=== PATIENT | male | born 1990 | race Caucasian/White ===

== ENCOUNTER 2017-01-23 01:31 | Emergency (ER) | payer MEDICAID ==
[~2017-01-23] VITALS: Ht 185.4 cm; Wt 65.8 kg
[~2017-01-23 01:31] MED LIST: AMOXICILLIN 50500 MG PO; CHLOR-PHEN12 MG PO; CIPRO 0.3% OT; DEX OT; INSULIN GL100 UNITS/ SC; LANTUS INS100 UNITS/ SC; LEVAQUIN750 MG PO; LORTAB 500 MG-71 TAB PO; NOVOLOG FLEX100 U/ML SC; NOVOLOG100 U/ML SC
--- NOTE | 2017-01-23 01:42 | Emergency Room Report ---
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 STATES HE ONLY HAD 1/2 BEER AT [employer]. FSBS 484 PER EMS. STATES STOMACH IS CRAMPING REALLY BAD. Onset of symptoms date/time:01/23/17 or onset unknown for: Treatment Prior to Arrival: IV STARTED AND BLOOD DRAWN. FSBS OBTAINED. 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 N Clinical Suspician of Infection? N Mental Status: 1 - Regular (Normal Baseline) Sepsis Risk:Possible Sepsis Risk Have you (or family members/close friends) recently traveled outside the [place]? N If Yes, where/when: Have you had exposure to infectious disease within the past month? N TB? Other? Specify: Source patient, RN notes reviewed, EMS, old records Exam Limitations no limitations Comment iddm with crampy abd pain with no vomiting and concerned about possible tampering with his drink at [employer] party - Cardiac Chest Pain Chest pain indicative of cardiac No Timing/Duration this evening Severity moderate ALLERGIES Coded Allergies: No Known Allergies (01/23/17) Home Medications Reported Medications INSULIN GLARGINE (Lantus 3ML Solostar Pen) 40 U SC QHS Insulin Aspart, Recombinant (Novolog Flexpen) 0 SC QID HYDROCODONE 7.5MG/[id number] (Hydrocodon-Acetaminoph 7.5-500) 1-2 TAB PO Q4-6H PRN History Medical History General CAD? No Angina: No AR: No Hypertension? No Hyperlipidemia? No CHF? No DVT? No PE? No COPD? No Asthma? No Anemia? No GERD? No Gastric ulcers? No GI Bleed? No Hernia? No Thyroid Problems? No Hypothyroidism? No CVA? No Seizures? No Diabetes? Yes Insulin Dependent: Yes Insulin Pump: No Home FSBS? No Renal Insuffiency? No End Stage Renal Disease? No UTI? No Stones? No BPH? No GB Disease: No Nephritic Syndrome? No Asplenia? No Hepatitis? No Sickle Cell Disease? No Arthritis? No Migraines? No Cataracts? No Glaucoma? No MRSA? No HIV? No TB? No Anxiety? No Depression? No Cancer? No More? No Immunization Hx Ped.Immunizations UTD No DT/Tetanus 1-4 YRS Flu THIS YR Pneumonia NEVER Surgical Hx Previous Surgery?Y RIGHT EAR Family History Family Hx Diabetes No CAD No Hypertension No Hyperlipidemia No Cancer No TB No Social History Smoking Hx Smoker: Never Smoker Tobacco: No Packs/day < 1 Pack Are you/the child exposed to second-hand smoke: No Alcohol Alcohol: Yes Drugs none Review of Systems All Other Systems Reviewed and Negative Constitutional denies fever Eyes denies drainage ENT denies: ear pain, epistaxis, throat pain. Respiratory denies cough, denies shortness of breath, denies wheezing Cardiovascular denies chest pain, denies syncope Gastrointestinal see HPI, abdominal pain, denies diarrhea, nausea, denies vomiting Genitourinary denies: dysuria, frequency, hesitancy, hematuria. Musculoskeletal denies back pain, denies joint pain, denies joint swelling, denies neck pain Skin denies rash Psychiatric/Neurological denies headache, denies seizure Physical Exam Vital Signs Vital Signs Date Time Temp Pulse Resp B/P Pulse O2 O2 Flow FiO2 Ox Delivery Rate 01/23 0323 98.4 93 18 109/79 97 01/23 0240 98.4 92 16 108/69 98 01/23 0209 98.4 109 16 100/62 98 01/23 0132 98.4 109 22 124/74 98 - WBC >12,000 or <4,000 or 10% bands? 2 or more SIRS Criteria Met? B/P:109/79 MAP:90 Creatinine >2.0? UA output<0.5ml/kg/hr for 2 hrs? Platelet count >100,000? Lactate >2.0mmol/1? INR >1.2 or PTT > than 60 sec? Evidence of Organ Dysfunction? Provider documented clinical suspician of infection? N Sepsis Criteria Count: 2 Sepsis Risk: Possible Sepsis Risk General Appearance no apparent distress Eye Exam - bilateral eye PERRL, bilateral eye EOMI Ear, Nose, Throat normal ENT inspection Neck supple Respiratory Status No: respiratory distress. Lung Sounds bilateral: lungs clear. Cardiovascular regular rate/rhythm, no murmur, no rub Peripheral Pulses Pulses normal Yes Gastrointestinal soft, no organomegaly, no pulsatile mass, no guarding, no rebound Extremities normal inspection Strength 4 Upper Ext (L), 4 Upper Ext (R), 4 Lower Ext (L), 4 Lower Ext (R) Neurologic alert, cartridge loader II-XII nml as tested, no motor/sensory deficits Reflexes Reflexes normal No Mental status normal mood/affect Skin intact Medical Decision Making LABS/Meds/Orders Pt receiving controlled substance in ED? No Results/Orders Laboratory Tests 01/23/17 031: POC Glucose 192 H 01/23/17 0150: Opiates Screen NEGATIVE, Urine Methadone Screen NEGATIVE, Barbiturates NEGATIVE, Phencyclidine Screen NEGATIVE, Amphetamines Screen POSITIVE H, Benzodiazepines Screen NEGATIVE, Cocaine Screen NEGATIVE, Marijuana (THC) Screen NEGATIVE, Urine Color YELLOW, Urine Appearance CLEAR, Urine pH 5.5, Ur Specific [place] 1.010, Urine Protein NEGATIVE, Urine Ketones 1+ H, Urine Blood NEGATIVE, Urine Nitrate NEGATIVE, Urine Bilirubin NEGATIVE, Urine Urobilinogen 0.2, Ur Leukocyte Esterase NEGATIVE, Amorphous Sediment TRACE, Urine Glucose 3+ H 01/23/17 0134: Alcohols 0 01/23/174: Sodium 133 L, Potassium 4.4, Chloride 96 L, Carbon Dioxide 22, BUN 19 H, Creatinine 1.7 H, Estimated Creat Clear 62, Estimated GFR (MDRD) 49, Glucose 491 H, Calcium 8.8, Total Bilirubin 0.5, AST 23, ALT 38, Alkaline Phosphatase 137 H, Total Protein 7.3, Albumin 3.3 L, Globulin 4.0 H, Albumin/Globulin Ratio 0.8 L, Amylase 63, Lipase 111, WBC 6.7, RBC 4.66, Hgb 14.1, Hct 43.1, MCV 92.5, RDW 13.0, Plt Count 300, MPV 6.1 L, Gran % 47.0, Gran # 3.2, Lymphocytes % 44.1, Monocytes % 4.9, Eosinophils % 3.3, Basophils % 0.8, Lymphocytes # 3.0, Monocytes # 0.3, Eosinophils # 0.2, Basophils # 0.1, PUBS MCHC 32.7, MCH 30.3, Acetone Level NONE DETECTED Current Medication Orders Sig/Frannie Start time Last Medication Dose Route Stop Time Status Admin Sodium Chloride 1,000 ML .STK-MED ONE 01/24 320 DC IV Insulin Human Regular 5 UNITS ONCE ONE 01/23 315 CAN IVP 01/24 316 Sodium Chloride 1,000 ML .Q1H1M 01/23 315 AC 01/23 IV 01/23 0415 0322 Sodium Chloride 10 ML PRN PRN 01/23 0315 AC IV 01/24 0314 Sodium Chloride 1,000 ML .STK-MED ONE 01/23 0236 DC IV Sodium Chloride 10 ML PRN PRN 01/23 0145 AC IV 01/24 0137 Sodium Chloride 1,000 ML .Q1H1M 01/23 0145 DC 01/23 IV 01/23 0245 0149 Sodium Chloride 10 ML PRN PRN 01/23 0145 AC IV 01/24 0138 Sodium Chloride 1,000 ML .Q1H1M 01/23 0145 DC 01/23 IV 01/23 0245 0239 Sodium Chloride 10 ML PRN PRN 01/23 0145 AC IV 01/24 0142 Sodium Chloride 1,000 ML .STK-MED ONE 01/23 0139 DC IV Orders Procedure Date/time Status DIET-NOTHING BY MOUTH 01/23 B Active FINGERSTICK BLOOD SUGAR 01/[address] ABD & PELVIS W/O CONTRAST 01/23 014 Active ALCOHOL 01/[address] ABD/PELVIS REQ 01/23 138 Active IV SALINE LOCK 01/23 138 Active URINALYSIS/COMPLETE 01/23 138 Complete LIPASE 01/23 138 Complete DRUG ABUSE SCREEN (TRIAGE) 01/23 138 Complete CBC WITH AUTO DIFF 01/23 138 Complete CHEM 12 PROFILE 01/23 138 Complete AMYLASE 01/23 138 Complete Acetone, Serum 01/23 138 Complete XRAY/CT/US XRAY/CT/US CT abdomen, pelvis CT interpretation by discussed w/radiologist Time results known: 334 CT Results abnormal (see report) Departure Departure Time of Disposition 334 Disposition DC Home or Self Care(routine) Clinical Impression Primary Impression: Diabetes mellitus Qualifiers: Diabetes mellitus type: type 1 Diabetes mellitus complication status: with unspecified complications Qualified Code: E10.8 - Type 1 diabetes mellitus with unspecified complications Condition STABLE Patient Instructions DI for Diabetes Type 1 -- Adult Additional Instructions fluids and resume prev diabetes care Discharge Counseling Counseled pt/family regarding diagnosis, test results, follow up needs ED Critical Care Critical Care No at [id number]
--- NOTE | 2017-01-23 01:42 | Emergency Room Report ---
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 STATES HE ONLY HAD 1/2 BEER AT [employer]. FSBS 484 PER EMS. STATES STOMACH IS CRAMPING REALLY BAD. Onset of symptoms date/time:01/23/17 or onset unknown for: Treatment Prior to Arrival: IV STARTED AND BLOOD DRAWN. FSBS OBTAINED. 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 N Clinical Suspician of Infection? N Mental Status: 1 - Regular (Normal Baseline) Sepsis Risk:Possible Sepsis Risk Have you (or family members/close friends) recently traveled outside the [place]? N If Yes, where/when: Have you had exposure to infectious disease within the past month? N TB? Other? Specify: Source patient, RN notes reviewed, EMS, old records Exam Limitations no limitations Comment iddm with crampy abd pain with no vomiting and concerned about possible tampering with his drink at [employer] - Cardiac Chest Pain Chest pain indicative of cardiac No Timing/Duration this evening Severity moderate ALLERGIES Coded Allergies: No Known Allergies (01/23/17) Home Medications Reported Medications INSULIN GLARGINE (Lantus 3ML Solostar Pen) 40 U SC QHS Insulin Aspart, Recombinant (Novolog Flexpen) 0 SC QID HYDROCODONE 7.5MG/[id number] (Hydrocodon-Acetaminoph 7.5-500) 1-2 TAB PO Q4-6H PRN History Medical History General CAD? No Angina: No SC: No Hypertension? No Hyperlipidemia? No CHF? No DVT? No PE? No COPD? No Asthma? No Anemia? No GERD? No Gastric ulcers? No GI Bleed? No Hernia? No Thyroid Problems? No Hypothyroidism? No CVA? No Seizures? No Diabetes? Yes Insulin Dependent: Yes Insulin Pump: No Home FSBS? No Renal Insuffiency? No End Stage Renal Disease? No UTI? No Stones? No BPH? No GB Disease: No Nephritic Syndrome? No Asplenia? No Hepatitis? No Sickle Cell Disease? No Arthritis? No Migraines? No Cataracts? No Glaucoma? No MRSA? No HIV? No TB? No Anxiety? No Depression? No Cancer? No More? No Immunization Hx Ped.Immunizations UTD No DT/Tetanus 1-4 YRS Flu THIS YR Pneumonia NEVER Surgical Hx Previous Surgery?Y RIGHT EAR Family History Family Hx Diabetes No CAD No Hypertension No Hyperlipidemia No Cancer No TB No Social History Smoking Hx Smoker: Never Smoker Tobacco: No Packs/day < 1 Pack Are you/the child exposed to second-hand smoke: No Alcohol Alcohol: Yes Drugs none Review of Systems All Other Systems Reviewed and Negative Constitutional denies fever Eyes denies drainage ENT denies: ear pain, epistaxis, throat pain. Respiratory denies cough, denies shortness of breath, denies wheezing Cardiovascular denies chest pain, denies syncope Gastrointestinal see HPI, abdominal pain, denies diarrhea, nausea, denies vomiting Genitourinary denies: dysuria, frequency, hesitancy, hematuria. Musculoskeletal denies back pain, denies joint pain, denies joint swelling, denies neck pain Skin denies rash Psychiatric/Neurological denies headache, denies seizure Physical Exam Vital Signs Vital Signs Date Time Temp Pulse Resp B/P Pulse O2 O2 Flow FiO2 Ox Delivery Rate 01/23 0323 98.4 93 18 109/79 97 01/23 0240 98.4 92 16 108/69 98 01/23 0209 98.4 109 16 100/62 98 01/23 0132 98.4 109 22 124/74 98 - WBC >12,000 or <4,000 or 10% bands? 2 or more SIRS Criteria Met? B/P:109/79 MAP:90 Creatinine >2.0? UA output<0.5ml/kg/hr for 2 hrs? Platelet count >100,000? Lactate >2.0mmol/1? INR >1.2 or PTT > than 60 sec? Evidence of Organ Dysfunction? Provider documented clinical suspician of infection? N Sepsis Criteria Count: 2 Sepsis Risk: Possible Sepsis Risk General Appearance no apparent distress Eye Exam - bilateral eye PERRL, bilateral eye EOMI Ear, Nose, Throat normal ENT inspection Neck supple Respiratory Status No: respiratory distress. Lung Sounds bilateral: lungs clear. Cardiovascular regular rate/rhythm, no murmur, no rub Peripheral Pulses Pulses normal Yes Gastrointestinal soft, no organomegaly, no pulsatile mass, no guarding, no rebound Extremities normal inspection Strength 4 Upper Ext (L), 4 Upper Ext (R), 4 Lower Ext (L), 4 Lower Ext (R) Neurologic alert, guide visitor II-XII nml as tested, no motor/sensory deficits Reflexes Reflexes normal No Mental status normal mood/affect Skin intact Medical Decision Making LABS/Meds/Orders Pt receiving controlled substance in ED? No Results/Orders Laboratory Tests 01/23/17 031: POC Glucose 192 H 01/23/17 0150: Opiates Screen NEGATIVE, Urine Methadone Screen NEGATIVE, Barbiturates NEGATIVE, Phencyclidine Screen NEGATIVE, Amphetamines Screen POSITIVE H, Benzodiazepines Screen NEGATIVE, Cocaine Screen NEGATIVE, Marijuana (THC) Screen NEGATIVE, Urine Color YELLOW, Urine Appearance CLEAR, Urine pH 5.5, Ur Specific [place] 1.010, Urine Protein NEGATIVE, Urine Ketones 1+ H, Urine Blood NEGATIVE, Urine Nitrate NEGATIVE, Urine Bilirubin NEGATIVE, Urine Urobilinogen 0.2, Ur Leukocyte Esterase NEGATIVE, Amorphous Sediment TRACE, Urine Glucose 3+ H 01/23/17 0134: Alcohols 0 01/23/174: Sodium 133 L, Potassium 4.4, Chloride 96 L, Carbon Dioxide 22, BUN 19 H, Creatinine 1.7 H, Estimated Creat Clear 62, Estimated GFR (MDRD) 49, Glucose 491 H, Calcium 8.8, Total Bilirubin 0.5, AST 23, ALT 38, Alkaline Phosphatase 137 H, Total Protein 7.3, Albumin 3.3 L, Globulin 4.0 H, Albumin/Globulin Ratio 0.8 L, Amylase 63, Lipase 111, WBC 6.7, RBC 4.66, Hgb 14.1, Hct 43.1, MCV 92.5, RDW 13.0, Plt Count 300, MPV 6.1 L, Gran % 47.0, Gran # 3.2, Lymphocytes % 44.1, Monocytes % 4.9, Eosinophils % 3.3, Basophils % 0.8, Lymphocytes # 3.0, Monocytes # 0.3, Eosinophils # 0.2, Basophils # 0.1, PUBS MCHC 32.7, MCH 30.3, Acetone Level NONE DETECTED Current Medication Orders Sig/Frannie Start time Last Medication Dose Route Stop Time Status Admin Sodium Chloride 1,000 ML .STK-MED ONE 01/24 320 DC IV Insulin Human Regular 5 UNITS ONCE ONE 01/23 315 CAN IVP 01/24 316 Sodium Chloride 1,000 ML .Q1H1M 01/23 315 AC 01/23 IV 01/23 0415 0322 Sodium Chloride 10 ML PRN PRN 01/23 0315 AC IV 01/24 0314 Sodium Chloride 1,000 ML .STK-MED ONE 01/23 0236 DC IV Sodium Chloride 10 ML PRN PRN 01/23 0145 AC IV 01/24 0137 Sodium Chloride 1,000 ML .Q1H1M 01/23 0145 DC 01/23 IV 01/23 0245 0149 Sodium Chloride 10 ML PRN PRN 01/23 0145 AC IV 01/24 0138 Sodium Chloride 1,000 ML .Q1H1M 01/23 0145 DC 01/23 IV 01/23 0245 0239 Sodium Chloride 10 ML PRN PRN 01/23 0145 AC IV 01/24 0142 Sodium Chloride 1,000 ML .STK-MED ONE 01/23 0139 DC IV Orders Procedure Date/time Status DIET-NOTHING BY MOUTH 01/23 B Active FINGERSTICK BLOOD SUGAR 01/[address] ABD & PELVIS W/O CONTRAST 01/23 014 Active ALCOHOL 01/[address] ABD/PELVIS REQ 01/23 138 Active IV SALINE LOCK 01/23 138 Active URINALYSIS/COMPLETE 01/23 138 Complete LIPASE 01/23 138 Complete DRUG ABUSE SCREEN (TRIAGE) 01/23 138 Complete CBC WITH AUTO DIFF 01/23 138 Complete CHEM 12 PROFILE 01/23 138 Complete AMYLASE 01/23 138 Complete Acetone, Serum 01/23 138 Complete XRAY/CT/US XRAY/CT/US CT abdomen, pelvis CT interpretation by discussed w/radiologist Time results known: 334 CT Results abnormal (see report) Departure Departure Time of Disposition 334 Disposition DC Home or Self Care(routine) Clinical Impression Primary Impression: Diabetes mellitus Qualifiers: Diabetes mellitus type: type 1 Diabetes mellitus complication status: with unspecified complications Qualified Code: E10.8 - Type 1 diabetes mellitus with unspecified complications Condition STABLE Patient Instructions DI for Diabetes Type 1 -- Adult Additional Instructions fluids and resume prev diabetes care Discharge Counseling Counseled pt/family regarding diagnosis, test results, follow up needs ED Critical Care Critical Care No at 0340
[2017-01-23 01:56] LABS: HEMOGLOBIN 14.1 g/dL (14.1-18.0); LYMPH % 44.1 % (10-50)
[2017-01-23 02:04] LABS: URINE BILIRUBIN - DIPSTICK NEGATIVE (NEG); URINE BLOOD NEGATIVE (NEG)
[2017-01-23 02:12] LABS: AMPHETAMINES/METAMPHETAMINES POSITIVE ng/mL (<1000)
[2017-01-23 02:15] LABS: BUN 19 mg/dL (7-18)
[2017-01-23 02:31] LABS: GFR (ESTIMATED) 49 ML/MIN (>60)
[2017-01-23 04:15] VITALS: BP 109/79
--- NOTE | 2017-01-23 14:41 | RADIOLOGY REPORT PS360 ---
CT ABD PELVIS W/O CONTRAST Ordering Physician: Otilio French MD Patient Age: 26 years: Male HISTORY: ABD PAIN elevated blood sugar. TECHNIQUE: Helical CT scanning performed the chest no oral nor IV contrast. Sagittal coronal reconstructions on CT workstation. FINDINGS Lower thorax. Lung bases are clear nothing definitely acute. Heart normal size. Abdomen/pelvis: lack of oral and IV contrast decreases sensitivity Liver. No focal lesions. Generous left lobe extends to the far to the left where it also resides anterior to the spleen. The right lobe is generous as well measuring as measures 23 23-cm length on coronal images... Upper normal 2 slightly generous volume liver. Also note that the liver measures up to 75HUnd appears slightly dense overall ( typical is 50 5HU.) Nonspecific observation but can be seen with a variety conditions the including hemachromatosis, hemosiderosis. Certainly warrants correlation with LFTs. And possiblyferritin Spleen. small normal size an unremarkable. Pancreas not well seen on this noncontrast study but no focal lesion. Adrenals unremarkable. Gallbladder. Likely sludge but no stones evident Kidneys appear symmetrical bilaterally with no calculi nor obstruction. There is a 12 mm hyperdense exophytic area off the anterior aspect of upper left kidney. Likely hemorrhagic cyst particularly 26-year-old. Ultrasound could confirm such. Urinary bladder. Borderline diffuse wall thickening. May warrant correlation urine analysis No retroperitoneal adenopathy of significance. Scattered small nodes in the mesentery could reflect mild mesenteric adenitis but unimpressive. GI tract. .. Stomach moderately distended with food and fluid. Small bowel appears satisfactory with mild/moderate fluid throughout, but no dilatation. Large bowel. Moderate stool throughout colon. No bowel dilatation or obstruction. No inflammatory changes. Osseous. Unremarkable. No lesions evident IMPRESSION: 1. No definitive acute findings abdomen pelvis. No free fluid or inflammatory changes 2.. Moderate Distended food and fluid filled stomach is noted 3. Also note Scattered modest mesenteric nodes, conceivably could reflect mild mesenteric adenitis but unimpressive 4. Liver is generous size. Perhaps slight increased density. Warrants correlation with LFTs 5. Small Hyperdense extrinsic most likely small 4 mm hemorrhagic renal cyst upper left kidney Borderline diffuse bladder wall thickening warrants correlation with urinalysis 6. [facility] reported mild thickening of the rectosigmoid wall. I suspect this could merely reflect lack of distention here(rather than a colitis)particularly with the lack , liquid stool or other findings. Clinical correlation required.
--- OUTSIDE RECORDS SUMMARY | 2017-01-24 21:51 | External Medical Summary Rpt ---
Author Author JUAN Lavinia [facility] Organization [facility] Address Unknown Phone Unavailable Care Team Providers Care Senior Benefits Specialist Name Role Phone DR HORACIO PCP [phone] Encounter JUAN MILLAN [id number] Date(s): 08/24/16 - 08/24/16 [facility] [address] [place] [address]- [phone] Discharge Diagnosis: Acute pulpitis Discharge Diagnosis: Tooth fracture Discharge Disposition: OP Self Care or Home Attending Physician: LEONEL GOMEZ MD-MERLINE Admitting Physician: LEONEL GOMEZ MD-MERLINE Referring Physician: LEONEL GOMEZ MD-MERLINE Reason for Visit PULPITIS Vital Signs Most recent 1 to oldest [Reference Range]: Temperature Oral Source (08/24/16 5:45 AM) Temperature Fahrenheit Mode (08/24/16 5:45 AM) Temperature, 98.0 Deg F Fahrenheit (08/24/16 5:45 AM) [96.8-99.7 Deg F] Clinical 36.7 Deg C Temperature, (08/24/16 5:45 AM) C Peripheral 111 bpm Pulse Rate *HI* [60-100 bpm] (08/24/16 5:45 AM) Respiratory 18 Breaths/Min Rate [14-20 (08/24/16 5:45 AM) Breaths/Min] Blood 124/79 mmHg Pressure (08/24/16 5:45 AM) [90-140/60-9 0 mmHg] Oxygen 98 % Saturation (08/24/16 5:45 AM) [94-100 %] Oxygen Room air Therapy Mode (08/24/16 5:45 AM) Problem List Condition Effective Status Health Informant Dates Status Acute Active Hyperglycemi a(Confirmed) Diabetes(Con Active firmed) Allergies, Adverse Reactions, Alerts No Known Medication Allergies Medications acetaminophen-codeine (Tylenol with Codeine #3 oral tablet) See Instructions, 1-2 Tab Oral Q6H, Refills: 0Ordering provider: LEONEL GOMEZ MD-MERLINE Penicillin V Potassium (penicillin V potassium 500 mg oral tablet)1 Tab, Oral, Every 6 Hours, 7 Day(s), Refills: 0Ordering provider: LEONEL GOMEZ MD-EMR Results GENERAL CHEMISTRY Most recent 1 to oldest [Reference Range]: Glucose POC2 371 mg/dL [60-110 *HI* mg/dL] (08/24/16 5:47 AM) Immunizations No data available for this section Procedures No data available for this section Social History Social History Response Type Smoking Status Tobacco Use Within Last Twelve Months Cigarettes; Current every day smoker; Packs/Tins Daily 1.5 Assessment and Plan No data available for this section Hospital Discharge Instructions Patient EducationDental Pain Toothballs_lex (Custom) (Custom)
--- OUTSIDE RECORDS SUMMARY | 2017-01-24 21:51 | External Medical Summary Rpt ---
Author Author JUAN [facility] Organization [facility] Address Unknown Phone Unavailable Care Team Providers Care Phy Therapist Name Role Phone HORACIO, ARASH BRITTON DR PCP Unavailable Encounter JUAN MILLAN [id number] Date(s): 06/06/16 - 06/06/16 [facility] [address] [place] [address]- Discharge Diagnosis: Acute Hyperglycemia Discharge Disposition: OP Self Care or Home Attending Physician: Tomas Shelley, Physician Admitting Physician: Tomas Shelley, Physician Referring Physician: Tomas Shelley, Physician Reason for Visit OTHER ABNORMAL GLUCOSE Vital Signs Most recent 1 2 to oldest [Reference Range]: Temperature Oral Source (06/06/16 7:32 AM) Temperature Fahrenheit Mode (06/06/16 7:32 AM) Temperature, 97.7 Deg F Fahrenheit (06/06/16 7:32 AM) [96.8-99.7 Deg F] Clinical 36.5 Deg C Temperature, (06/06/16 7:32 AM) C Peripheral 80 bpm 87 bpm Pulse Rate (06/06/16 10:10 AM) (06/06/16 7:32 AM) [60-100 bpm] Respiratory 16 Breaths/Min Rate [14-20 (06/06/16 7:32 AM) Breaths/Min] Blood 114/70 mmHg 118/64 mmHg Pressure (06/06/16 10:10 AM) (06/06/16 7:32 AM) [90-140/60-9 0 mmHg] Oxygen 98 % Saturation (06/06/16 7:32 AM) [94-100 %] Oxygen Room air Therapy Mode (06/06/16 7:32 AM) Problem List Condition Effective Status Health Informant Dates Status Acute Active Hyperglycemi a(Confirmed) Diabetes(Con Active firmed) Allergies, Adverse Reactions, Alerts No Known Medication Allergies Medications insulin isophane (NPH)-insulin regular (insulin human 70/30)15 Units, SubCutaneous , Twice a Day Before Meals, Refills: 0 Results GENERAL CHEMISTRY Most recent 1 to oldest [Reference Range]: Sodium Level 135 mmol/L [136-145 *LOW* mmol/L] (06/06/16 7:53 AM) Potassium 4.7 mmol/L Level (06/06/16 7:53 AM) [3.5-5.1 mmol/L] Chloride 99 mmol/L Level (06/06/16 7:53 AM) [98-107 mmol/L] Carbon 26 mmol/L Dioxide (06/06/16 7:53 AM) Level [21-32 mmol/L] Anion Gap 15 [9-20] (06/06/16 7:53 AM) Glucose 536 mg/dL 1 Level *CRIT* [74-106 (06/06/16 7:53 AM) mg/dL] Blood Urea 17 mg/dL Nitrogen (06/06/16 7:53 AM) [7-18 mg/dL] Creatinine 1.08 mg/dL Level (06/06/16 7:53 AM) [0.70-1.30 mg/dL] eGFR 101 mL/min/1.73m2 [>=60 (06/06/16 7:53 AM) mL/min/1.73m 2] eGFR 83 mL/min/1.73m2 NonAfrican (06/06/16 7:53 AM) [>=60 mL/min/1.73m 2] Bun/Creatini 15.741 ne *NA* (06/06/16 7:53 AM) Calcium 8.4 mg/dL Level *LOW* [8.5-10.1 (06/06/16 7:53 AM) mg/dL] Protein 7.0 Gram/dL Total (06/06/16 7:53 AM) [6.4-8.2 Gram/dL] Albumin 3.2 Gram/dL Level *LOW* [3.4-5.0 (06/06/16 7:53 AM) Gram/dL] Globulin 3.8 Gram/dL [1.5-4.5 (06/06/16 7:53 AM) Gram/dL] A/G Ratio 0.8 [1.1-2.5] *LOW* (06/06/16 7:53 AM) Bilirubin 0.6 mg/dL Total (06/06/16 7:53 AM) [0.2-1.0 mg/dL] Alk Phos 168 Units/Liter [46-116 *HI* Units/Liter] (06/06/16 7:53 AM) AST [15-37 27 Units/Liter Units/Liter] (06/06/16 7:53 AM) ALT [16-63 32 Units/Liter Units/Liter] (06/06/16 7:53 AM) Glucose POC2 308 mg/dL 2 [60-110 *HI* mg/dL] (06/06/16 9:18 AM) 1Result Comment: CALLED TO:VIPUL MCCLELLAN DATE/TIME CALLED:06/06/2016 08:17:19 EDT READ BACK AND VERIFIED:YES CALLED BY: [email or web address] Comment: Nurse Notified of ResultHEMATOLOGY Most recent 1 to oldest [Reference Range]: WBC [4.2-9.1 8.4 K/uL K/uL] (06/06/16 7:53 AM) RBC 3.86 Million/uL [4.63-6.08 *LOW* Million/uL] (06/06/16 7:53 AM) Hgb 11.7 Gram/dL [13.7-17.5 *LOW* Gram/dL] (06/06/16 7:53 AM) Hct 33.9 % [40.1-51.0 *LOW* %] (06/06/16 7:53 AM) MCV 87.8 fL [79.0-94.8 (06/06/16 7:53 AM) fL] MCH 30.3 pg [25.6-32.2 (06/06/16 7:53 AM) pg] MCHC 34.5 Gram/dL [32.2-36.5 (06/06/16 7:53 AM) Gram/dL] Platelet 343 K/uL Count (06/06/16 7:53 AM) [163-369 K/uL] MPV 10.2 fL [9.4-12.4 (06/06/16 7:53 AM) fL] RDW 12.4 % [11.6-14.4 (06/06/16 7:53 AM) %] Neut % 65.3 % [34.0-71.0 (06/06/16 7:53 AM) %] Neut # 5.50 K/uL [1.56-6.13 (06/06/16 7:53 AM) K/uL] Lymph % 25.5 % [19.0-53.0 (06/06/16 7:53 AM) %] Lymph # 2.15 K/uL [1.18-3.74 (06/06/16 7:53 AM) K/uL] [place] % 6.7 % [3.0-9.0 %] (06/06/16 7:53 AM) [place] # 0.56 K/uL [0.16-1.00 (06/06/16 7:53 AM) K/uL] Eos % 2.0 % [0.0-7.0 %] (06/06/16 7:53 AM) Eos # .17 K/uL [0.00-0.80 (06/06/16 7:53 AM) K/uL] Baso % 0.5 % [0.0-2.0 %] (06/06/16 7:53 AM) Baso # 0.04 K/uL [0.00-0.20 (06/06/16 7:53 AM) K/uL] Slide Review No (06/06/16 7:53 AM) URINALYSIS Most recent 1 to oldest [Reference Range]: Urine Type U CleanCatch (06/06/16 9:15 AM) Urine Color Light Yellow (06/06/16 9:15 AM) Urine Clear Appearance (06/06/16 9:15 AM) Urine 1.005 Specific (06/06/16 9:15 AM) [place] [1.005-1.030 ] Urine pH 6.5 Dipstick (06/06/16 9:15 AM) [6.0-8.0] Urine Negative Leukocyte (06/06/16 9:15 AM) Esterase Urine Negative Nitrite (06/06/16 9:15 AM) [Negative] Urine Negative Protein (06/06/16 9:15 AM) Dipstick Urine 1000 Glucose *ABN* Dipstick (06/06/16 9:15 AM) Urine 50 Ketones *ABN* Dipstick (06/06/16 9:15 AM) [Negative] Urine Normal Urobilinogen (06/06/16 9:15 AM) Dipstick Urine Negative Bilirubin (06/06/16 9:15 AM) Dipstick [Negative] Urine Blood Negative Dipstick (06/06/16 9:15 AM) Ur RBC 0-2 /HPF *ABN* (06/06/16 9:15 AM) Ur WBC 0-2 /HPF (06/06/16 9:15 AM) Ur Bacteria Trace *ABN* (06/06/16 9:15 AM) Ur Squamous 0-2 /HPF Epithelial (06/06/16 9:15 AM) Cells Immunizations No data available for this section Procedures No data available for this section Social History Social History Response Type Smoking Status Tobacco Use Within Last Twelve Months Cigarettes; Current every day smoker; Packs/Tins Daily 1.5 Assessment and Plan No data available for this section Hospital Discharge Instructions Patient EducationHyperglycemia
--- OUTSIDE RECORDS SUMMARY | 2017-01-24 21:51 | External Medical Summary Rpt ---
Author Author JUAN [facility] Organization [facility] Address Unknown Phone Unavailable Care Team Providers Care Wet Room Supervisor Name Role Phone DR HORACIO PCP [phone] Encounter JUAN MILLAN [id number] Date(s): 08/24/16 - 08/24/16 [facility] [address] [place] [address]- Discharge Diagnosis: Acute pulpitis Discharge Diagnosis: Tooth [...]
--- OUTSIDE RECORDS SUMMARY | 2017-01-24 21:51 | External Medical Summary Rpt ---
Author Author JUAN [facility] Organization [facility] Address Unknown Phone Unavailable Care Team Providers Care Environmental Sampling Technician Name Role Phone HORACIO, ARASH BRITTON DR PCP Unavailable Encounter JUAN MILLAN [id number] Date(s): 06/06/16 - 06/06/16 [facility] [place] [address] [place] [address]- Discharge Diagnosis: Acute Hyperglycemia Discharge Disposition: OP [...] EDT READ BACK AND VERIFIED:YES CALLED BY: [email or web address] Comment: Nurse Notified of ResultHEMATOLOGY Most recent [...] 2.15 K/uL [1.18-3.74 (06/06/16 7:53 AM) K/uL] [place] % 6.7 % [3.0-9.0 %] (06/06/16 7:53 AM) [place] # 0.56 K/uL [0.16-1.00 (06/06/16 7:53 AM) [...] AM) Urine 1.005 Specific (06/06/16 9:15 AM) [place] [1.005-1.030 ] Urine pH 6.5 Dipstick (06/06/16 [...]
--- OUTSIDE RECORDS SUMMARY | 2017-01-24 21:54 | External Medical Summary Rpt ---
Author Author , Organization [employer] Address Unknown Phone Unavailable Care Team Providers Care Resident In Diagnostic Radiology Name Role Phone ELIEZER LI, ELIEZER Unavailable Unavailable GUILLERMO [facility] Unavailable Unavailable MEDICAL GROUP, [facility] KAY TANESHA, KAY TANESHA Unavailable Unavailable MARTÍNEZ, MARTÍNEZ Unavailable Unavailable BONDRA, SIMA J, Unavailable Unavailable BONDRA, SIMA J [facility] Unavailable Unavailable [facility] Unavailable Unavailable [facility], [facility] Maury ORR COOPER, Unavailable Unavailable FAUSTO SCHWARTZ, Unavailable Unavailable FAUSTO HENDRESON [facility] [place], [facility] [place] [facility] [place] [place] [facility] [facility] Unavailable Unavailable [facility]ABORTYCOLLIN [facility] Unavailable Unavailable DEXTER PALMER [facility] Unavailable Unavailable DEXTER DAVIDSON, DAVIDSON Unavailable Unavailable DAVIDSON NAN, DAVIDSON Unavailable Unavailable NAN ZAHRAABDIAS RENTERIA, Unavailable Unavailable RAYO MORALES Unavailable Unavailable TOBrijesh [facility] Unavailable Unavailable [facility] Unavailable Unavailable INC, [facility] APURVA PETE, APURVA PETE Unavailable Unavailable JUDI JETT Unavailable Unavailable RICHIE VIOLA ROG, Unavailable Unavailable VIOLA [facility]OG [facility] Unavailable Un[facility], [facility] Un[facility] Un[facility] & [facility], [facility] JORDYN ALL, JORDYN ALL Unavailable Unavailable [facility] Unavailable Unavailable [facility], [facility] EZEKIEL PRINCE, Unavailable Unavailable EZEKIEL PRINCE JULIA E, Unavailable Unavailable NIALL FALCON, CESILIA Unavailable Unavailable GAR NGUYEN CAGLE, Unavailable Unavailable NGUYEN CAGLE BRIAN T, Unavailable Unavailable JACKY DELVALLE BRUCE R, Unavailable Unavailable PAULO CERNA R HENRY, Unavailable Unavailable Suzanne CASTANON, NATIVIDAD SANTANA Unavailable Unavailable [facility] Unavailable Unavailable LAB[facility] JR. SWAPNA, DO OSC, Unavailable Unavailable JR. SWAPNA, DO OSC RAINS ALL, RAINS ALL Unavailable Unavailable CINDI WAD, CINDI Unavailable Unavailable WAD ELLIOT CARISSA, ELLIOT CARISSA Unavailable Unavailable RUSCHMAN ALYCE, Unavailable Unavailable RUSCHMAN ALYCE DONOVAN BARKLEYL, Unavailable Unavailable FILIPPO, JUDAH MAXIMILIANO DWYER, Unavailable Unavailable MAXIMILIANO DWYER LESLIE K, Unavailable Unavailable SADIE OGDEN CHR, SEMDER Unavailable Unavailable CHR MERRITT III, NORBERTO J, Unavailable Unavailable MERRITT III, NORBERTO J SOKAN, GRISELDA O, Unavailable Unavailable SOKAN, GRISELDA O [facility] Unavailable Un[facility] Unavailable Unavailable EMERGENCY PHYS, [facility], Unavailable Unavailable [facility] HUBBARD RYA, HUBBARD Unavailable Unavailable RYA STEARLEY SET, Unavailable Unavailable STEARLEY SET KRAUS DONALD, KRAUS Unavailable Unavailable DONALD TANNOCK LIS, TANNOCK Unavailable Unavailable LIS KENTRELL LEE, Unavailable Unavailable KENTRELL LEE TRUE, TRUE Unavailable Unavailable [facility] Unavailable Unavailable MEDICINE P, [facility], Unavailable Unavailable [facility] Unavailable [facility] [place] [facility] SISSY BOATENG, SISSY Unavailable Unavailable TASNEEM Purpose Continuity of Care Document - 09-30-2007 through 2016 Problems Code Diagnosis DOS Provider Status R079 CHEST PAIN 09-03-2016 [facility] R9431 ABNORMAL 09-03-2016 [facility] ELECTROCARD [facility] IOGRAM [facility] E109 TYPE 1 07-07-2016 [facility] DI[facility]ET[facility] FAMILY MELLITUS MEDICINE P WITHOUT COMPLICATIO NS Z23 ENCOUNTER 07-07-2016 [facility] IMMUNIZATIO MEDICINE P N E1165 TYPE 2 06-06-2016 [facility] DIABETES [facility] [place]YCEM [place] R109 UNSPECIFIED 06-06-2016 [facility] A[facility]OM[facility] PAIN AMBULANCE R7309 OTHER 06-06-2016 [facility] ABNORMAL CO GLUCOSE AMBULANCE R739 HYPERGLYCEM 06-06-2016 [facility] UNSPECIFIED PHYS Z794 HALFWAY 06-06-2016 [facility] CURRENT USE [facility]OSPITAL OF INSULIN E1065 TYPE 1 06-03-2016 [facility] [place]US [place]CEM [place] R1030 LOWER 06-03-2016 [facility] ABDOMINAL [facility] PAIN UNSPECIFIED Z590 HOMELESSNES 06-03-2016 [facility] Z9049 ACQUIRED 06-03-2016 [facility] SPEC PARTS DIGESTIVE TRACT E0810 DM DUE TO 06-01-2016 [facility] UNDERLYING FAMILY COND MEDICINE P W/KETOACIDO S W/O COMA E860 DEHYDRATION 06-01-2016 [facility] MEDICINE P E1010 TYPE 1 05-31-2016 [facility] W/KETOACIDO SIS W/O COMA K3580 UNSPECIFIED 05-31-2016 [facility] AC[facility] APPENDICITI [facility] S K5900 CONSTIPATIO 05-31-2016 [facility] UNSPECIFIED K651 PERITONEAL 05-31-2016 [facility] ABSCESS [facility] R1032 LEFT LOWER 05-31-2016 [facility] PAIN R188 OTHER 05-31-2016 [facility] ASC[facility]ES [facility] J65297 ENCOUNTER 05-31-2016 [facility] FLW SURG DIGESTIVE SYS Z9114 PATIENTS 05-31-2016 [facility] NONCOMPLIAN CE W/MEDICATIO N REGIMEN Z9889 OTHER 05-31-2016 [facility] POSTPROCEDU RAL STATES G8918 OTHER ACUTE 05-30-2016 [facility] POST[facility]EDU [facility] RAL PAIN E1040 TYPE 1 05-28-2016 [place] [facility] W/DIAB NEUROPATHY UNS I10 ESSENTIAL 05-28-2016 [facility] HYPERTENSIO [facility] N K37 UNSPECIFIED 05-28-2016 [facility] APPENDIC[facility] S K389 DISEASE OF 05-28-2016 [facility] UNSPECIFIED HOSPI R160 HEPATOMEGAL 05-28-2016 [facility] NOT SERV ELSEWHERE [facility] CLASSIFIED R6882 DECREASED 05-28-2016 [facility] LIB[facility]O [facility] E1169 TYPE 2 05-25-2016 [place] [facility] MELL[facility]US [facility] W/OTH SPEC COMPLICATIO N E872 ACIDOSIS 05-25-2016 [facility] E869 VOLUME 01-25-2016 [facility] UNSPECIFIED HOSP R112 NAUSEA WITH 01-25-2016 [facility] UNSPECIFIED HOSP K088 OTH SPEC 01-22-2016 [facility] DISORDERS EMERGENCY TEETH & PHYS PSC SUPPORTING STRUCTURES K029 DENTAL 01-20-2016 [facility] CARIES [facility]ERGENC[facility] UNSPECIFIED PHYS PSC E861 HYPOVOLEMIA 11-09-2015 [facility] R030 ELEVATED 11-09-2015 [facility] BLOOD-PRESS EMERGENCY URE READING PHYS PSC WITHOUT DX HTN R1110 VOMITING 11-09-2015 [facility] UNSPECIFIED [facility]IOUS HOSP 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 STATED UNCNTRL 13692 DIAB 10-10-2009 [facility] W/KET[facility]ACIDO EMERGENCY S TYPE SERVICES II/UNS NOT ASSOCIATES STATED UNCNTRL 7840 HEADACHE 10-10-2009 [facility] 52933 UNSPECIFIED 08-27-2009 [facility] INFECTION IN CCE & UNS SITE 0091 COLITIS 07-15-2009 [facility] ENTERIT&GAS [facility] TROENTERIT INF ORIGIN V0481 NEED 07-10-2009 [facility]/CO PROPHYLACTI HEALTH C CENTRAL VACCINATION BANK ACCT &INOCULATIO N FLU 4720 CHRONIC 06-25-2009 [facility] RH[facility]IS [facility] 06624 UNS 06-25-2009 [facility] GASTRITIS[facility]G [facility] ASTRODUODIT IS W/O MENTION HEMORR 4779 ALLERGIC 06-19-2009 [facility] CAUSE UNSPECIFIED 10348 UNSPECIFIED 06-05-2009 [facility]UTE [facility] NONSUPPURAT JAS OTITIS MEDIA 490 BRONCHITIS 06-05-2009 [facility] NOT [facility] SPECIFIED ACUTE OR CHRONIC 4619 ACUTE 05-28-2009 [facility] SINUSITIS, ASSOCIATES UNSPECIFIED 92086 CONTUSION 02-03-2009 [place] [facility] 9245 CONTUSION 02-03-2009 [place] OF EMERGENCY UNSPECIFIED SERVICES PART OF ASSOCIATES LOWER LIMB E8490 PLACE OF 02-03-2009 [place] OCC[facility]RENCE, [facility] E8852 FALL FROM 02-03-2009 [place] [facility] 7062 SEBACEOUS 01-23-2009 PATHOLOGY & CYST CYTOLOGY LAB 28213 DIAB W/O 01-22-2009 [facility], COMP TYPE JUDAH II/UNS NOT STATED UNCNTRL 2392 NEOPLASMS 01-16-2009 [facility] UNSPEC [facility] NATURE BONE SOFT TISSUE&SKIN 45888 REGULAR 01-04-2009 [facility] ASTIGMATISM VISION 05411 CONTUSION 11-01-2008 [facility] E8859 FALL FROM 11-01-2008 [place] OTHER MEDICAL SLIPPING IMAGING TRIPPING OR ASSOCIATES STUMBLING 12630 NAUSEA WITH 10-18-2008 [facility] 5206 DISTURBANCE 08-20-2008 [place] [facility] S IN TOOTH FOR ERUPTION ORAL&MAXILL OFACIAL SURGERY 97006 UNSPECIFIED 08-09-2008 [facility] OTITIS EXTERNA 75284 DIAB W/O 04-30-2008 [facility] NURSE MENTION PRACTITIONE COMP TYPE I R GROUP [JUV TYPE] UNCNTRL 07292 DIAB 10-15-2007 [facility] W/HYPEROSMO SERV LARITY TYPE FOUNDATIO I [JUV TYPE] UNCNTRL 7906 OTHER 10-14-2007 [facility] ABNORMAL SERV BLOOD [facility] CHEMISTRY V1581 PERS HX 10-14-2007 [place] [facility] NONCOMPLIAN SERV CE W/MED TX FOUNDATIO PRS HAZARDS HLTH E11.9 TYPE 2 DIABETES MELLITUS WITHOUT COMPLICATIO NS Allergies, Adverse Reactions, Alerts Clinical Alert Notifications Alert Diabetes: no A1C in the last 6 months Diabetes: no eye exam in the last 365 days Diabetes: no lipid panel in the last 365 days Member has >/= 3 hosp admit & >/= 1 ED visit in 365 days Medications Na ND Rx Da Fi Fi Am Da Di Ph RX Ph St me C No te ll ll ou ys ag ar # ys at rm s nt no ma ic us Or Da si cy ia de te s n re d RE 00 12 01 10 30 00 WA Ac LI 16 -1 -0 .0 00 L- ti ON 91 08 MA ve 83 20 20 82 RT NO 30 16 17 91 VO 2 48 PH LI AR N MA R CY 10 0 #2 UN 62 IT 8 /M L HY 16 12 01 [address] 71 -1 -0 .0 00 L- ti OX 40 2- 9- 00 07 MA ve YZ 08 20 20 31 RT IN 21 16 17 41 E 0 62 PH HC AR L MA 25 CY MG #2 62 TA 8 BL ET PE 57 12 01 28 7 00 WA Ac NI 23 -1 -0 .0 00 L- ti CI 70 3- 9- 00 07 MA ve LL 04 20 20 31 RT IN 10 16 17 44 1 20 PH VK AR MA 50 CY 0 MG #2 62 TA 8 BL ET NO 00 04 05 11 20 30 EA 17 MU Ac VO 16 -2 -[address] 31 LB ti LO 97 3- 7- 00 SI 92 ER ve G 50 20 20 DE RY 10 11 10 10 0 1 PH BR UN AR IA IT MA N /M CY T L OF AL CY NT HI AN A NO 00 04 04 11 20 30 EA 17 MU Ac VO 16 -2 -[address] 31 LB ti LO 97 3- 3- 00 SI 92 ER ve G 50 20 20 DE RY 10 11 10 10 0 1 PH BR UN AR IA IT MA N /M CY T L OF AL CY NT HI AN A LA 00 03 03 0 10 25 EA 16 NO Ac NT 08 -1 -[address] 75 RF ti US 82 2- 2- 00 SI 08 LE ve 22 20 20 DE ET 10 03 10 10 R 0 3 PH UN AR HE IT MA NR S/ CY Y ML OF AL CY NT HI AN A NO 00 03 03 0 10 30 EA 16 NO Ac VO 16 -1 -[address] 73 RF ti LO 97 1- 1- 00 SI 96 LE ve G 50 20 20 DE ET 10 11 10 10 R 0 1 PH UN AR HE IT MA NR /M CY Y L OF AL CY NT HI AN A 59 09 02 01 8. 16 EA 14 CO Ac 31 -0 -[address] 17 OP ti 00 9- 1- 0 SI 74 ER ve 57 20 20 DE 92 09 10 CARLENE 0 PH HN AR G MA CY OF CY NT HI AN A AM 00 01 01 00 30 10 EA 15 NO Ac OX 78 -1 -[address] 94 RF ti IC 12 2- 8- 00 SI 03 LE ve IL 61 20 20 DE ET LI 30 10 10 R N 5 PH 50 AR HE 0 MA NR MG CY Y CA OF PS CY UL NT E HI AN A TR 45 01 01 00 15 5 EA 15 NO Ac IA 80 -1 -[address] 94 RF ti MC 20 2- 8- 00 SI 01 LE ve IN 06 20 20 DE ET OL 43 10 10 R ON 5 PH E AR HE 0. MA NR 1% CY Y CR OF EA CY M NT HI AN A 68 12 12 00 20 10 EA 15 NO Ac 04 -0 -[address] 37 RF ti 70 1- 7- 00 SI 69 LE ve 12 20 20 DE ET 20 09 09 R 1 PH AR HE MA NR CY Y OF CY NT HI AN A NO 00 11 12 00 20 30 EA 15 MU Ac VO 16 -2 -[address] 25 LB ti LO 97 3- 3- 00 SI 34 ER ve G 50 20 20 DE RY 10 11 09 09 0 1 PH BR UN AR IA IT MA N /M CY T L OF AL CY NT HI AN A NO 00 09 11 01 20 20 EA 14 SC Ac VO 16 -2 -[address] 37 OT ti LO 97 2- 5- 00 SI 13 T ve G 50 20 20 DE LE 10 11 09 09 SL 0 1 PH IE UN AR K IT MA /M CY L OF AL CY NT HI AN A LA 00 09 10 00 10 10 EA 14 SC Ac NT 08 -2 -[address] 37 OT ti US 82 2- 8- 00 SI 12 T ve 22 20 20 DE LE 10 03 09 09 SL 0 3 PH IE UN AR K IT MA S/ CY ML OF CY AL NT HI AN A NO 00 09 10 00 20 20 EA 14 SC Ac VO 16 -2 -[address] 37 OT ti LO 97 2- 8- 00 SI 13 T ve G 50 20 20 DE LE 10 11 09 09 SL 0 1 PH IE UN AR K IT MA /M CY L OF AL CY NT HI AN A 00 09 10 00 15 4 EA 14 NO Ac 40 -2 -[address] 47 RF ti 62 9- 8- 00 SI 30 LE ve 04 20 20 DE ET 11 09 09 R 0 PH AR HE MA NR CY Y OF CY NT HI AN A AZ 00 09 09 00 6. 5 EA 14 CO Ac IT 09 -0 -[address] 17 OP ti HR 37 9- 4- 0 SI 73 ER ve OM 14 20 20 DE YC 61 09 09 CARLENE IN 8 PH HN AR G 25 MA 0 CY MG OF TA CY BL NT ET HI AN A TX 16 09 09 00 21 6 EA 14 CO Ac LL 47 -0 -[address] 17 OP ti IP 70 9- 4- 00 SI 75 ER ve RE 50 20 20 DE D 52 09 09 CARLENE DP 1 PH HN 5 AR G MA MG CY 6- OF DA CY Y NT PA HI CK AN A 59 09 09 00 8. 16 EA 14 CO Ac 31 -0 -[address] 17 OP ti 00 9- 4- 0 SI 74 ER ve 57 20 20 DE 92 09 09 CARLENE 0 PH HN AR G MA CY OF CY NT HI AN A 16 09 09 00 20 10 EA 14 NO Ac 71 -0 -[address] 08 RF ti 40 2- 0- 00 SI 58 LE ve 23 20 20 DE ET 30 09 09 R 2 PH AR HE MA NR CY Y OF CY NT HI AN A 60 09 09 00 18 5 EA 14 NO Ac 25 -0 -[address] 08 RF ti 80 2- 0- 00 SI 59 LE ve 23 20 20 0 DE ET 91 09 09 R 6 PH AR HE MA NR CY Y OF CY NT HI AN A NO 00 06 06 08 20 20 EA 98 SC Ac VO 16 -0 -[address] 25 OT ti LO 97 5- 4- 00 SI 25 T ve G 50 20 20 DE LE 10 11 08 09 SL 0 1 PH IE UN AR K IT MA /M CY L OF AL CY NT HI AN A LA 00 06 06 03 10 10 EA 98 SC Ac NT 08 -0 -[address] 25 OT ti US 82 5- 4- 00 SI 28 T ve 22 20 20 DE LE 10 03 08 09 SL 0 3 PH IE UN AR K IT MA S/ CY ML OF CY AL NT HI AN A NO 00 06 05 07 20 20 EA 98 SC Ac VO 16 -0 -[address] 25 OT ti LO 97 5- 7- 00 SI 25 T ve G 50 20 20 DE LE 10 11 08 09 SL 0 1 PH IE UN AR K IT MA /M CY L OF AL CY NT HI AN A NO 00 06 02 06 20 20 EA 98 SC Ac VO 16 -0 -[address] 25 OT ti LO 97 5- 6- 00 SI 25 T ve G 50 20 20 DE LE 10 11 08 09 SL 0 1 PH IE UN AR K IT MA /M CY L OF AL CY NT HI AN A 67 01 01 00 14 7 EA 11 MU Ac 25 -2 -[address] 21 LB ti 30 3- 0- 00 SI 98 ER ve 00 20 20 DE RY 76 09 09 0 PH BR AR IA MA N CY T OF CY NT HI AN A NO 00 06 01 05 20 20 EA 98 SC Ac VO 16 -0 -[address] 25 OT ti LO 97 5- 0- 00 SI 25 T ve G 50 20 20 DE LE 10 11 08 09 SL 0 1 PH IE UN AR K IT MA /M CY L OF AL CY NT HI AN A LA 00 06 01 02 10 10 EA 98 SC Ac NT 08 -0 -[address] 25 OT ti US 82 5- 0- 00 SI 28 T ve 22 20 20 DE LE 10 03 08 09 SL 0 3 PH IE UN AR K IT MA S/ CY ML OF CY AL NT HI AN A NO 00 06 01 04 20 20 EA 98 SC Ac VO 16 -0 -[address] 25 OT ti LO 97 5- 1- 00 SI 25 T ve G 50 20 20 DE LE 10 11 08 09 SL 0 1 PH IE UN AR K IT MA /M CY L OF AL CY NT HI AN A AZ 00 12 12 00 6. 5 EA 10 ALLISON Ac IT 09 -1 -[address] 63 MM ti HR 37 0- 8- 0 SI 75 ON ve OM 14 20 20 DE D YC 61 08 08 KA IN 8 PH TH AR AR 25 MA IN 0 CY E MG Y OF TA CY BL NT ET HI AN A 59 12 12 00 8. 15 EA 10 ALLISON Ac 31 -1 -[address] 63 MM ti 00 0- 8- 0 SI 76 ON ve 57 20 20 DE D 92 08 08 KA 0 PH TH AR AR MA IN CY E Y OF CY NT HI AN A 00 11 12 00 24 4 EA 10 NI Ac 59 -2 -[address] 39 CO ti 10 4- 4- 00 SI 12 L ve 38 20 20 DE BR 50 08 08 UC 1 PH E AR R MA CY OF CY NT HI AN A AM 00 11 12 00 15 5 EA 10 NI Ac OX 78 -2 -[address] 39 CO ti IC 12 4- 4- 00 SI 13 L ve IL 61 20 20 DE BR LI 30 08 08 UC N 5 PH E 50 AR R 0 MA MG CY CA OF PS CY UL NT E HI AN A NO 00 06 11 03 20 20 EA 98 SC Ac VO 16 -0 -[address] 25 OT ti LO 97 5- 0- 00 SI 25 T ve G 50 20 20 DE LE 10 11 08 08 SL 0 1 PH IE UN AR K IT MA /M CY L OF AL CY NT HI AN A LA 00 06 11 01 10 10 EA 98 SC Ac NT 08 -0 -[address] 25 OT ti US 82 5- 0- 00 SI 28 T ve 22 20 20 DE LE 10 03 08 08 SL 0 3 PH IE UN AR K IT MA S/ CY ML OF CY AL NT HI AN A 63 10 11 00 20 10 EA 99 MU Ac 82 -2 -[address] 98 LB ti 40 3- 7- 00 SI 58 ER ve 05 20 20 DE RY 64 08 08 0 PH BR AR IA MA N CY T OF CY NT HI AN A AM 00 10 11 00 21 7 EA 99 MU Ac OX 78 -2 -[address] 98 LB ti IC 12 3- 7- 00 SI 57 ER ve IL 61 20 20 DE RY LI 30 08 08 N 5 PH BR 50 AR IA 0 MA N MG CY T CA OF PS CY UL NT E HI AN A NO 00 06 10 02 20 20 EA 98 No Ac VO 16 -0 -[address] 25 t ti LO 97 5- 9- 00 SI 25 Av ve G 50 20 20 DE ai 10 11 08 08 la 0 1 PH bl UN AR e IT MA /M CY L OF AL CY NT HI AN A NO 00 06 08 01 20 20 EA 98 No Ac VO 16 -0 -[address] 25 t ti LO 97 5- 4- 00 SI 25 Av ve G 50 20 20 DE ai 10 11 08 08 la 0 1 PH bl UN AR e IT MA /M CY L OF AL CY NT HI AN A NO 00 06 06 00 20 20 EA 98 No Ac VO 16 -0 -[address] 25 t ti LO 97 5- 2- 00 SI 25 Av ve G 50 20 20 DE ai 10 11 08 08 la 0 1 PH bl UN AR e IT MA /M CY L OF AL CY NT HI AN A LA 00 06 06 00 10 10 EA 98 No Ac NT 08 -0 -[address] 25 t ti US 82 5- 2- 00 SI 28 Av ve 22 20 20 DE ai 10 03 08 08 la 0 3 PH bl UN AR e IT MA S/ CY ML OF CY AL NT HI AN A AZ 00 05 05 00 6. 6 EA 97 No Ac IT 09 -0 -[address] 89 t ti HR 37 6- 2- 0 SI 30 Av ve OM 14 20 20 DE ai YC 61 08 08 la IN 8 PH bl AR e 25 MA 0 CY MG OF TA CY BL NT ET HI AN A CI 00 04 05 00 7. 7 EA 97 No Ac NJ 06 -2 -[address] 70 t ti OD 58 2- 8- 0 SI 80 Av ve EX 53 20 20 DE ai 30 08 08 la OT 2 PH bl IC AR e MA BLANK CY SP EN OF SI CY ON NT HI AN A AM 00 04 05 00 20 10 EA 97 No Ac OX 09 -2 -[address] 70 t ti -C 32 2- 8- 00 SI 79 Av ve LA 27 20 20 DE ai V 53 08 08 la 87 4 PH bl 5- AR e 12 MA 5 CY MG OF TA CY BL NT ET HI AN A 63 04 04 00 21 7 EA 97 No Ac 30 -0 -[address] 54 t ti 40 9- 4- 00 SI 79 Av ve 65 20 20 DE ai 80 08 08 la 1 PH bl AR e MA CY OF CY NT HI AN A NO 00 03 04 00 10 12 EA 97 No Ac VO 16 -1 -[address] 27 t ti LO 97 9- 7- 00 SI 87 Av ve G 50 20 20 DE ai 10 11 08 08 la 0 1 PH bl UN AR e IT MA /M CY L OF AL CY NT HI AN A 63 03 04 00 10 5 EA 97 No Ac 30 -2 -[address] 38 t ti 40 7- 0- 00 SI 63 Av ve 76 20 20 DE ai 32 08 08 la 0 PH bl AR e MA CY OF CY NT HI AN A 00 06 04 02 15 30 EA 93 No Ac 08 -0 -[address] 54 t ti 82 7- 0- 00 SI 69 Av ve 22 20 20 DE ai 05 07 08 la 2 PH bl AR e MA CY OF CY NT HI AN A NO 00 12 04 02 10 15 EA 96 No Ac VO 16 -2 -[address] 11 t ti LO 97 7- 7- 00 SI 89 Av ve G 50 20 20 DE ai 10 11 07 08 la 0 1 PH bl UN AR e IT MA /M CY L OF AL CY NT HI AN A NO 00 12 03 01 10 15 EA 96 No Ac VO 16 -2 -[address] 11 t ti LO 97 7- 5- 00 SI 89 Av ve G 50 20 20 DE ai 10 11 07 08 la 0 1 PH bl UN AR e IT MA /M CY L OF AL CY NT HI AN A Immunization Name Date Route CVX Reacti Commen Provid Is Given on t er Refuse d IIV4 CINDI No VACC 2015 [facility] PRESRV FREE 0.5 ML FOR IM USE PPSV23 CINDI No 2015 [facility] VACCIN E 2 YRS OR OLDER FOR SUBQ/I M USE IIV3 ANTOINE No VACCIN [address] [facility] VIRUS MALIBU 0.5 ML DOSAGE IM USE Procedures Procedure DOS Code Location Performer Comment RADIOLOGI 69378 [place] TRUE C 6 MEDICAL EXAMINATI SERV ON CHEST FOUNDAT[facility] SINGLE N VIEW FRONTAL ECG 62188 [place] ROUTINE 6 MEDICAL ECG SERV W/LEAST FOUNDATIO 12 LDS N I&R ONLY IIV4 VACC 32124 [facility] PRESRV 6 [facility] WAD FREE 0.5 MEDICINE ML FOR IM P USE ALBUMIN 63663 [facility] URINE 6 [facility] MICROALBU MEDICINE MIN P SEMIQUANT ITATIVE GLUC BLD 22713 [facility] GLUC MNTR 6 [facility] DEV MEDICINE CLEARED P FDA SPEC HOME USE IM ADM 06343 [facility] PRQ ID 6 [facility] WAD SUBQ/IM MEDICINE NJXS EA P VACCINE PPSV23 26506 [facility] VACCINE 2 6 [facility] WAD YRS OR MEDICINE OLDER FOR P SUBQ/IM USE IM ADM 50498 [facility] PRQ ID 6 [facility] WAD SUBQ/IM MEDICINE NJXS 1 P VACCINE COMPREHEN 86400 [facility] SIVE [address] [place] [address] METABOLIC PANEL THER 448[address] [facility] PROPH/DX [address] [place] [address] NJX IV PUSH SINGLE/1S T SBST/DRUG GLUC BLD 92349 [facility] GLUC MNTR [address] [place] [address] DEV CLEARED FDA SPEC HOME USE URNLS DIP [address] STICK/TAB LET REAGENT AUTO MICROSCOP Y GROUND A0425 JESSAMINE JESSAMINE MILEAGE 6 CO CO PER AMBULANCE AMBULANCE STATUTE MILE THERAPEUT 22180 [facility] IC [address] [place] [address] [place] [address] HYDRATION EACH ADDITIONA L HOUR INJECTION J2405 [address] ONDANSETR ON HCL PER 1 MG AMB A0427 J[facility] JESSAMINE SERVICE 6 CO CO ALS AMBULANCE AMBULANCE EMERGENCY TRANSPORT LEVEL [address] COMPLETE AUTO&AUTO DIFRNTL WBC BLOOD 58799 [facility] COUNT 6 Y Y COMPLETE [facility] [place] [address] [facility] LIPASE Y Y HOSPITAL HOSPITAL ECG 16529 [facility] ROUTINE 6 MEDICAL NAN ECG SERV W/LEAST FOUNDATIO 12 LDS N I&R ONLY ECG 31039 [facility] ROUTINE 6 Y Y ECG [facility] HOSPITAL W/LEAST 12 LDS TRCG ONLY W/O I&R INFUSION J7030 [facility] NORMAL 6 Y Y SALINE [facility] SOLUTION 1000 CC INFUSION J7050 [facility] UNIVERS NORMAL 6 Y Y SALINE [facility] SOLUTION 250 CC COMPREHEN 18070 [facility] SIVE 6 Y Y [facility] PANEL INJECTION [id number] [facility] INSULIN 6 Y Y PER 5 [place] [address] [facility] INFUSION 6 Y Y THERAPY/P [facility] ROPHYLAXI S /DX 1ST TO 1 HR KETONE 20725 [facility] BODIES Y Y SERUM [facility] [place] [address] [facility] INFUSION 6 Y Y THERAPY [facility] PROPHYLAX IS/DX EA HOUR URNLS DIP 91715 [facility] 6 Y Y STICK/TAB [facility] LET RGNT AUTO W/O MICROSCOP Y THERAPEUT 02339 [facility] IC 6 Y Y PROPHYLAC [facility] TIC/DX INJECTION SUBQ/[place] [address] [facility] LACTATE 6 Y Y HOSPITAL HOSPITAL GASES 00692 [facility] BLOOD PH 6 Y Y DIRECT [facility] [address] [facility] DISCHARGE 6 [place] FAMILY K GIN DAY MEDICINE MANAGEMEN P T 30 MIN/< [place] [address] [place] MERHAR ABDOMEN & 6 MEDICAL GAR PELVIS SERV W/CONTRAS FOUNDATIO T N MATERIAL INITIAL [id number] [facility]ITAL 6 MEDICAL CARE/DAY SERV [address] [place] [address] [place] NATIVIDAD ESTHER ABDOMEN & 6 MEDICAL PELVIS SERV W/CONTRAS FOUNDATIO T N MATERIAL INITIAL 23414 [facility] INPATIENT 6 MEDICAL LIS CONSULT SERV NEW/ESTAB FOUNDATIO PT 40 N MIN ANESTHESI 06004 [facility] TANESHA A 6 LTH INTRAPERI ANESTHESI TONEAL A PSC LOWER ABD W/LAPS NOS LAPAROSCO 91557 [place] KRAUS PIC 6 MEDICAL DONALD APPENDECT SERV QUINN FOUNDATIO N LEVEL III 43254 [facility] SURG 6 Y [place] [facility] [place] [facility]&JAUN ROSCOPIC EXAM ECG 43635 [place] APURVA PETE ROUTINE 6 MEDICAL ECG SERV W/LEAST FOUNDATIO 12 LDS N I&R ONLY AMB [id number] FERN FERN SERVICE 6 FAYETTE FAYETTE ALS [facility] U[facility] EMERGENCY COGOVT COGOVT TRANSPORT LEVEL 1 GROUND A0425 FERN FERN MILEAGE 6 [place] FAY[place] PER URBAN URBAN STATUTE COGOVT COGOVT [facility] [address] [facility], DISCHARGE 6 [place] JR., DO DAY MEDICINE OSC MANAGEMEN P T 30 MIN/< GROUND A0425 FERN FERN MILEAGE 6 FAYETTE FAYETTE PER URBAN URBAN STATUTE COGOVT COGOVT MILE AMB [id number] FERN FERN SERVICE 6 [facility]AYETTE [facility] COGOVT COGOVT TRANSPORT LEVEL 1 THERAPEUT 54530 [facility] IC 6 RELIGIOUS RELIGIOUS INJECTION HOSP HOSP IV PUSH EACH NEW DRUG INJECTION C9113 [facility] 6 RELIGIOUS RELIGIOUS PANTOPRA[place] [address] [facility] INFUSION 6 RELIGIOUS RELIGIOUS HYDRATION HOSP HOSP EACH ADDITIONA L HOUR INJECTION J2405 [facility] 6 RELIGIOUS RELIGIOUS ONDANSETR HOSP HOSP ON HCL PER 1 MG THER 62261 [facility] PROPH/DX 6 RELIGIOUS RELIGIOUS NJX IV HOSP HOSP PUSH SINGLE/1S [place]ST/[place] [address] [facility] AMYLASE 6 RELIGIOUS RELIGIOUS HOSP HOSP URNLS DIP 84024 [facility] 6 RELIGIOUS RELIGIOUS STICK/TAB HOSP HOSP LET RGNT AUTO W/O MICROSCOP Y COMPREHEN 78305 [facility] SIVE 6 RELIGIOUS RELIGIOUS METABOLIC HOSP HOSP PANEL GLUCOSE 72202 [facility] BLOOD 6 RELIGIOUS RELIGIOUS REAGENT HOSP HOSP STRIP INJECTION J1170 [facility] 6 RELIGIOUS RELIGIOUS HYDROMORP HOSP HOSP ROHAN UP TO 4 MG CUL BACT 89094 [facility] XCPT 6 RELIGIOUS RELIGIOUS URINE HOSP HOSP BLOOD/STO OL AEROBIC ISOL CULTURE 33050 [facility] TYPING 6 RELIGIOUS RELIGIOUS IMMUNOLOG HOSP HOSP IC OTH/THN IMMUNOFLU ORES BLOOD 33044 [facility] COUNT 6 RELIGIOUS RELIGIOUS COMPLETE HOSP HOSP AUTO&AUTO DIFRNTL WBC KETONE 10696 [facility] BODIES 6 RELIGIOUS RELIGIOUS [place] [address] [facility] LIPASE 6 RELIGIOUS RELIGIOUS HOSP HOSP INJECTION J1170 [facility] 6 RELIGIOUS RELIGIOUS HYDROMORP HOSP HOSP ROHAN UP TO 4 MG BLOOD 03476 [facility] COUNT 6 RELIGIOUS RELIGIOUS COMPLETE HOSP HOSP AUTO&AUTO DIFRNTL WBC DRUG TEST G0478 [facility] 6 RELIGIOUS RELIGIOUS PRESUMP;R HOSP HOSP EAD BY INSTRUM-A ST DC OPT OBV BLOOD 81226 [facility] COUNT 6 RELIGIOUS RELIGIOUS HEMATOCRI HOSP HOSP T COMPREHEN 41027 [facility] SIVE 6 RELIGIOUS REL[place] [address] [facility] INFUSION 6 RELIGIOUS RELIGIOUS HYDRATION HOSP HOSP EACH ADDITIONA L HOUR THERAPEUT 67582 [facility] IC 6 RELIGIOUS RELIGIOUS INJECTION HOSP HOSP IV PUSH EACH NEW DRUG BASIC 54358 [facility] METABOLIC 6 RELIGIOUS RELIGIOUS [place] [address] [facility] INFUSION 6 RELIGIOUS RELIGIOUS THERAPY/P HOSP HOSP ROPHYLAXI S /DX 1ST TO 1 HR THER 01513 [facility] PROPH/DX 6 RELIGIOUS RELIGIOUS NJX EA HOSP HOSP SEQL IV PUSH SBST/DRUG FAC ARTERIAL 53633 [facility] PUNCTURE 6 RELIGIOUS RELIGIOUS WITHDRAWA HOSP HOSP L BLOOD DX THER 86378 [facility] PROPH/DX 6 RELIGIOUS RELIGIOUS NJX EA HOSP HOSP SEQL IV PUSH SBST/DRUG FAC THERAPEUT 17501 [facility] IC 6 RELIGIOUS RELIGIOUS INJECTION HOSP HOSP IV PUSH EACH NEW DRUG INJECTION J2405 [facility] 6 RELIGIOUS RELIGIOUS ONDANSETR HOSP HOSP ON HCL PER 1 MG COMPREHEN 22410 [facility] SIVE 6 RELIGIOUS RELIGI[place] [address] [facility] INFUSION 6 RELIGIOUS RELIGIOUS HYDRATION HOSP HOSP EACH ADDITIONA L HOUR URNLS DIP 91053 [facility] 6 RELIGIOUS RELIGIOUS STICK/TAB HOSP HOSP LET RGNT AUTO W/O MICROSCOP Y THER 34191 [facility] PROPH/DX 6 RELIGIOUS RELIGIOUS NJX IV HOSP HOSP PUSH SINGLE/1S T SBST/DRUG THERAPEUT 11044 [facility] IC 6 RELIGIOUS RELIGIOUS PROPHYLAC HOSP HOSP TIC/DX INJECTION SUBQ/IM GASES 25054 [facility] BLOOD PH 6 RELIGIOUS RELIGIOUS DIRECT HOSP HOSP MEGHAN XCPT PULSE OXIMITRY GLUCOSE 65624 [facility] BLOOD 6 RELIGIOUS RELIGIOUS REAGENT HOSP HOSP STRIP INJECTION J0500 [facility] 6 RELIGIOUS RELIGIOUS DICYCLOMI HOSP HOSP NE HCL UP TO 20 MG BLOOD 93407 [facility] COUNT 6 RELIGIOUS RELIGIOUS COMPLETE HOSP HOSP AUTO&AUTO DIFRNTL WBC KETONE 22801 [facility] BODIES 6 RELIGIOUS RELIGIOUS [place] [address] [facility] LIPASE 6 RELIGIOUS RELIGIOUS HOSP HOSP OPHTH 53559 EYE MAX JORDYN ALL MEDICAL 6 XM&EVAL COMPRE NEW PT 1/> VST DETERMINA 96272 EYE MAX JORDYN ALL TION 6 REFRACTIV E STATE CRITICAL 87456 [facility] R[facility] CARE 5 EMERGENCY ALYCE ILL/INJUR PHYS PSC ED PATIENT INIT 30-74 MIN ECG 27548 [facility] RUSCHMAN ROUTINE 5 EMERGENCY ALYCE ECG PHYS PSC W/LEAST 12 LDS I&R ONLY CV STRS 42819 RELIGIOUS SEMDER TST 4 [facility] XERS&/OR MEDICAL RX CONT GROUP ECG W/O I&R CV STRS 06143 RELIGIOUS SEMDER TST 4 [facility] XERS&/OR MEDICAL RX CONT GROUP ECG I&R ONLY SBSQ [address] 25 & H MINUTES ECG 21648 RELIGIOUS SEMDER ROUTINE 4 [facility] ECG MEDICAL W/LEAST GROUP 12 LDS I&R ONLY INITIAL [address] 70 & H MINUTES BLD GLU A4253 GUSTAVO LANDARELL TEST/REAG 0 HOME MED HOME MED T STRIPS EQUIP. EQUIP. HOME BLD [facility] GLU MON-50 BLD GLU A4253 GUSTAVO GUSTAVO TEST/REAG 0 HOME MED HOME MED T STRIPS EQUIP. EQUIP. HOME BLD [facility] GLU MON-50 GLUCOSE 83000 FAMILY MULBERRY, POST 0 CARE JACKY T GLUCOSE ASSOCIATE DOSE S HEMOGLOBI 84695 FAMILY MULBERRY, N 0 CARE JACKY T GLYCOSYLA ASSOCIATE JADYN A1C S BLD GLU A4253 GUSTAVO GUSTAVO TEST/REAG 0 HOME MED HOME MED T STRIPS EQUIP. EQUIP. HOME BLD [employer] GLU MON-50 RADIOLOGI 33747 [place] BEATRI[place], C 0 MEDICAL [facility] EXAMINATI IMAGING ON CHEST [place] [address] [place] BE[place], HEAD/BRAI 0 MEDICAL [facility] N W/O IMAGING CONTRAST ASSOCIATE MATERIAL S 3D 34474 [place] BEAT[place], RENDERING 0 MEDICAL [place] W/INTERP IMAGING & ASSOCIATE POSTPROCE S SS SUPERVISI ON BLOOD 18415 FAMILY GRAYSONEET, COUNT 9 CARE R PEPE COMPLETE ASSOCIATE AUTO&AUTO S DIFRNTL WBC IIV3 10714 DHS/CO BILL VACCINE 9 [facility] VIRUS 0.5 BANK ACCT ML DOSAGE IM USE BLD GLU A4253 GUSTAVO GUSTAVO TEST/REAG 9 HOME MED HOME MED T STRIPS EQUIP. EQUIP. HOME BLD [employer] GLU WED-50 RADIOLOGI 43384 BILL KHAN C 9 [facility] EXAMINATI INC INC ON PELVIS 1/2 VIEWS RADIOLOGI 49075 [place] GURJIT C 9 MEDICAL NGUYEN P EXAMINATI IMAGING ON FEMUR ASSOCIATE 2 VIEWS S RADEX HIP 58119 [place] GURJIT 9 MEDICAL NGUYEN P UNILATERA IMAGING L ASSOCIATE COMPLETE S MINIMUM 2 VIEWS LEVEL III 50456 PATHOLOGY PATHOLOGY SURG 9 & & PATHOLOGY CYTOLOGY CYTOLOGY LAB LAB GROSS&JAUN ROSCOPIC EXAM EXC B9 61148 SCHULSTAD SCHULSTAD LESION 9 , JUDAH , JUDAH MRGN XCP SK TG T/A/L 1.1-2.0 CM FITTING 89564 CRISTINA DWYER, SPECTACLE 9 VISION MAXIMILIANO M S XCPT APHAKIA MONOFOCAL FRAMES V2020 CRISTINA DWYER, PURCHASES 9 VISION MAXIMILIANO M 1 VISN V2103 CRISTINA DWYER PLANO 9 VISION MAXIMILIANO M TO+/-4.00 D SPHER 0.12-2.00 D CYL EA OPHTH 63132 CRISTINA DWYER, MEDICAL 9 VISION MAXIMILIANO Murray XM&EVAL COMPRHNSV ESTAB PT 1/> RADEX 01553 [facility] MCGARRYBEATRIZ, WRIST 9 MEDICAL FAUSTO COMPLETE IMAGING MINIMUM 3 ASSOCIATE VIEWS S HOSPITAL G0378 BILL KHAN OBSERVATI 9 [facility] ON INC INC SERVICE PER HOUR CULTURE 64256 BILL KHAN BACTERIAL 9 MEM [facility] INC INC QUANTTATI VE COLONY COUNT URINE OBSERVATI 48633 FAMILY MULBERRY, ON CARE 9 CARE JACKY T DISCHARGE ASSOCIATE S [facility] T URNLS DIP 02764 BILL KHAN 9 MEM [facility] STICK/TAB INC INC LET REAGENT AUTO MICROSCOP Y GLUC BLD 93103 BILL KHAN GLUC MNTR 9 MEM [facility] DEV INC INC CLEARED FDA SPEC HOME USE INITIAL 96685 FAMILY LOLYBERRY, OBSERVATI 9 CARE JACKY T ON ASSOCIATE CARE/DAY S 50 MINUTES HEMOGLOBI 09869 BILL KHAN N 9 MEM HOS[facility] MEM HOSP GLYCOSYLA INC INC JADYN A1C HOSPITAL G0378 BILL KHAN OBSERVATI 9 MEM [facility]OS[facility] ON INC INC SERVICE PER HOUR COMPREHEN 07925 BILL KHAN SIVE 9 MEM HOSP MEM HOSP METABOLIC INC INC PANEL BLOOD 40407 BILL KHAN COUNT 9 MEM HOS[facility] MEM HOS[facility] COMPLETE INC INC AUTO&AUTO DIFRNTL WBC TOBACCO 62315 BILL ANTOINEON USE 9 MEM HOSP [facility]OS[facility] CESSATION INC INC INTERMEDI ATE 3-10 MINUTES BLD GLU A4253 GUSTAVO CHEN TEST/REAG 9 HOME MED HOME MED T STRIPS EQUIP. EQUIP. HOME BLD [facility] GLU MON-50 DEEP D9220 [facility] ERYN, SEDATION/ 8 FOR PAULO Palacios GENERAL ORAL&MAXI ANESTHESI LLOFACIAL A-1ST 30 SURGERY MINUTES ORTHOPANT 65513 [facility] BONDRA OGRAM 8 FOR SIMA Mendiola ORAL&MAXI LLOFACIAL SURGERY BLD GLU A4253 GUSTAVO GUSTAVO TEST/REAG 8 HOME MED HOME MED T STRIPS EQUIP. EQUIP. [facility] [employer] [employer] [facility] GLU MON-50 LIPID 44164 [facility] UNIVERS PANEL 8 [place] [address] [facility] GAMMAGLOB 8 Y Y ULIN [facility] IGD IGG IGM EACH HEMOGLOBI 73929 [facility] [place] OGDEN 8 NURSE SADIE SALDAÑAA PRACTITEDWARD JADYN A1C NER GROUP ALBUMIN 12560 [facility] URINE 8 Y Y MICROALBU [facility] MIN QUANTIATI VE IMMUNOASS 39935 [facility] AY 8 Y Y ANALYTE [facility] QUAL/SEMI QUAL MULTIPLE STEP COMPREHEN 74913 [facility] SIVE 8 Y Y METABOLIC [facility] PANEL CREATININ 26240 [facility] E OTHER 8 Y Y SOURCE [facility] COLLECTIO 74059 [facility] N VENOUS 8 Y Y BLOOD [facility] [place] [address] [facility] THYROID 8 Y Y STIMULATI [facility] NG HORMONE TSH HEMOGLOBI 52199 [facility]ST[facility] Barr 8 MEDICAL III, GLYCOSYLA SERV NORBERTO J JADYN A1C FOUNDATIO BLD GLU A4253 GUSATVO GUSTAVO TEST/REAG 8 HOME MED HOME MED T STRIPS EQUIP. EQUIP. [facility] GLU MON-50 BLOOD 68091 BILL ANTOINEON COUNT 8 MEM [facility] COMPLETE INC INC AUTO&AUTO DIFRNTL WBC HEMOGLOBI 56071 BILL ANTOINEON N 8 MEM HOSP MEM HOSP GLYCOSYLA INC INC JADYN A1C BASIC 66986 BILL ANTOINEON METABOLIC 8 MEM HOS[facility]OS[facility] PANEL INC INC CALCIUM TOTAL BLD GLU A4253 GUSTAVO GUSTAVO TEST/REAG 8 HOME MED HOME MED T STRIPS EQUIP. EQUIP. [facility] GLU MON-50 BLD GLU A4253 GUSTAVO GUSTAVO TEST/REAG 8 HOME MED HOME MED T STRIPS EQUIP. EQUIP. [facility] GLU MON-50 HEMOGLOBI 44029 NESTOR Barr 8 MEDICAL III, GLYCOSYLA SERV NORBERTO J JADYN A1C FOUNDATIO HOME E0607 GUSTAVO CHEN BLOOD 8 HOME MED HOME MED GLUCOSE EQUIP. EQUIP. [facility] INITIAL 14[address] [place] [address] MEDICAL III, CARE/DAY SERV NORBERTO J 70 FOUNDATIO MINUTES KETONE 14185 [facility] BODIES 8 Y Y [facility] QUALITATI VE BASIC 44935 [facility] METABOLIC 8 Y Y PANEL HOSPITAL HOSPITAL CALCIUM TOTAL GASES 13410 [facility] BLOOD PH 8 Y Y DIRECT HOSPITAL HOSPITAL MEGHAN XCPT PULSE OXIMITRY HEMOGLOBI 47499 [facility] N 8 Y Y [facility]OS[facility]LA [facility] JADYN A1C GLUC BLD 67177 [facility] GLUC MNTR 8 Y Y DEV [facility] CLEARED FDA SPEC HOME USE INITIAL 78082 [facility] OBSERVATI 8 Y Y ON HOSPITAL HOSPITAL CARE/DAY 30 MINUTES INJECTION J1815 [facility] INSULIN 8 Y Y PER 5 [place] [address] [facility] INFUSION 8 Y Y HYDRATION [facility] INITIAL 31 MIN-1 HR COLLECTIO 40045 [facility] N VENOUS 8 Y Y BLOOD [facility] VENIPUNCT URE HEMOGLOBI [address] [place] [address] MEDICAL III, GLYCOSYLA SERV NORBERTO J JADYN A1C FOUNDATIO BLD GLU A4253 GUSTAVO CHEN TEST/REAG 8 HOME MED HOME MED T STRIPS EQUIP. EQUIP. HOME BLD [employer] GLU MON-50 Encounters Encounter Start End Date Code Location Performer Type Date OFFICE 51766 [facility] 6 6 [facility] WAD T VISIT MEDICINE 25 P MINUTES HOSPITAL [address] OUTPATIEN T EMERGENCY 74047 [facility] DEPT 6 6 RASHID VISIT EMERGENCY HIGH PHYS SEVERITY& THREAT FUNCJ EMERGENCY [address] DEPARTMEN T VISIT HIGH/URGE NT SEVERITY OFFICE 41762 [facility] OUT[facility] 6 6 [place] FAMILY HENYN NEE T VISIT MEDICINE 25 P MINUTES HOSPITAL UNIVERSIT - 6 6 Y OUTPATIEN HOSPITAL T EMERGENCY 66877 UN[facility] DEPT 6 6 Y VISIT HOSPITAL HIGH SEVERITY& THREAT FUNCJ EMERGENCY 45881 [facility] 6 6 [place] GUILLERMO DEPARTMEN PHYSICIAN T VISIT S ASSIST HIGH/URGE NT SEVERITY EMERGENCY 11972 [place] VI[place] 6 6 MEDICAL MELISSA DEPARTMEN SERV T VISIT FOUNDATIO HIGH/URGE N NT SEVERITY HOSPITAL UNIVERSIT - 6 6 Y INPATIENT HOSPITAL EMERGENCY 13466 [place] RAINS ALL 6 6 MEDICAL DEPARTMEN SERV T VISIT FOUNDATIO MODERATE N SEVERITY EMERGENCY 45913 [place] [facility] DEPT 6 6 MEDICAL SET VISIT SERV HIGH FOUNDATIO SEVERITY& N THREAT FUNCJ EMERGENCY 80096 [facility] 6 6 RELIGIOUS DEPARTMEN HOSP T VISIT HIGH/URGE NT SEVERITY HOSPITAL [facility]AL - 6 6 RELIGIOUS OUTPATIEN HOSP T EMERGENCY 33596 [facility] 6 6 EMERGENCY TOD DEPARTMEN PHYS PSC T VISIT MODERATE SEVERITY EMERGENCY 81008 [facility] DEPT 6 6 EMERGENCY ALYCE VISIT PHYS PSC HIGH SEVERITY& THREAT FUNCJ EMERGENCY 95431 [facility] 6 6 RELIGIOUS DEPARTMEN HOSP T VISIT MODERATE SEVERITY HOSPITAL [facility]AL - 6 6 RELIGIOUS OUTPATIEN HOSP T EMERGENCY 83799 [facility] 6 6 EMERGENCY RYA DEPARTMEN PHYS PSC T VISIT HIGH/URGE NT SEVERITY HOSPITAL [facility]ENTRAL - 6 6 RELIGIOUS OUTPATIEN HOSP T HOSPITAL CRISTOBAL'[facility] - 4 4 [facility] EMERGENC[facility] 85891 [facility] CHAKR[facility] 4 4 DEXTER DEXTER DEPARTMEN T VISIT MODERATE SEVERITY OFFICE 13954 FAMILY MULBERRY, OUTPATIEN 0 0 CARE JACKY T T VISIT ASSOCIATE 15 S MINUTES EMERGENCY 54480 SHANNON PALACIOS DEPT 0 0 EMERGENCY GRISELDA VISIT SERVICES O HIGH SEVERITY& ASSOCIATE THREAT S [facility] BILL - 0 0 [facility] OUTPATIEN INC T OFFICE 25245 FAMILY KINA, OUTPATIEN 0 0 CARE R PEPE T VISIT ASSOCIATE 15 S MINUTES OFFICE 42904 FAMILY KINA, OUTPATIEN 9 9 CARE R PEPE T VISIT ASSOCIATE 15 S MINUTES OFFICE 65632 FAMILY KINA, OUTPATIEN 9 9 CARE R PEPE T VISIT ASSOCIATE 15 S MINUTES OFFICE 40992 FAMILY KINA, OUTPATIEN 9 9 CARE R PEPE T VISIT ASSOCIATE 15 S MINUTES OFFICE 79743 FAMILY MULBERRY, OUTPATIEN 9 9 CARE JACKY T T VISIT ASSOCIATE 15 S MINUTES OFFICE 52799 FAMILY Maury ORR OUTPATIEN 9 9 CARE G T VISIT ASSOCIATE 15 S MINUTES OFFICE 36835 FAMILY KINA, OUTPATIEN 9 9 CARE R PEPE T VISIT ASSOCIATE 15 S MINUTES OFFICE 03232 FAMILY MULBERRY, OUTPATIEN 9 9 CARE JACKY T T VISIT ASSOCIATE 15 S MINUTES EMERGENCY 76316 SHANNON PRINCE 9 9 EMERGENCY [facility] DEPARTMEN SERVICES T VISIT HIGH/URGE ASSOCIATE NT S SEVERITY EMERGENCY 02116 BILL 9 9 MEM [facility] DEPARTMEN INC T VISIT LOW/MODER SEVERITY HOSPITAL BILL - 9 9 [facility] OUTPATIEN INC T OFFICE 80971 [facility] 9 9 , JUDAH SO ION NEW/ESTAB PATIENT 40 MIN OFFICE 07298 FAMILY MULBERRY, OUTPATIEN 9 9 CARE JACKY T T VISIT ASSOCIATE 15 S MINUTES HOSPITAL BILL - 9 9 [facility] BILL - 9 9 [facility] OUTPATIEN [facility] T OFFICE 86144 FAMILY DELVALLE OUTPATIEN 8 8 CARE JACKY T T VISIT ASSOCIATE 15 S MINUTES OFFICE 32085 [place] [facility] 8 8 FOR SIMA Mendiola T NEW 10 ORAL&MAXI MINUTES LLOFACIAL SURGERY OFFICE 76796 FAMILY DELVALLE OUTPATIEN 8 8 CARE JACKY T T VISIT ASSOCIATE 15 S MINUTES HOSPITAL [facility] - 8 8 Y [facility] T OFFICE 69699 [facility] 8 8 NURSE SADIE Britt T VISIT PRACTITIO 40 NER GROUP MINUTES OFFICE 51667 [facility] SHAINA [facility] 8 8 MEDICAL III, T VISIT SERV NORBERTO Mendiola 15 FOUNDATIO MINUTES OFFICE 77472 [facility] 8 CARE R PEPE T VISIT ASSOCIATE 15 S MINUTES OFFICE 87563 Maury [facility] 8 8 CARE G T VISIT ASSOCIATE 15 S MINUTES HOSPITAL COCOA - 8 8 [facility] T OFFICE 48719 FAMILY DELVALLE OUTPATIEN 8 8 CARE JACKY T T VISIT ASSOCIATE 15 S MINUTES OFFICE 10088 NESTOR SHAINA [facility] 8 8 MEDICAL III, T VISIT SERV NORBERTO J 25 FOUNDATIO MINUTES EMERGENCY 84848 [facility] 8 8 Y [facility] T VISIT HIGH/URGE NT SEVERITY EMERGENCY 01534 NESTOR FALCON, DEPT 8 8 MEDICAL NIALL E VISIT SERV HIGH FOUNDATIO SEVERITY& THREAT FUN HOSPITAL UNIVERSIT - 8 8 Y [facility] T OFFICE 30265 [place] [facility] 8 8 MEDICAL III, T VISIT SERV NORBERTO Mendiola 25 FOUNDATIO MINUTES
--- OUTSIDE RECORDS SUMMARY | 2017-01-24 21:54 | External Medical Summary Rpt ---
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 Unavailable Unavailable MEDICAL GROUP, [facility] KAY TANESHA, KAY TANESHA Unavailable Unavailable MARTÍNEZ, MARTÍNEZ Unavailable Unavailable BONDRA, SIMA J, Unavailable Unavailable BONDRA, SIMA J [facility] Unavailable Unavailable [facility] Unavailable Unavailable [facility], [facility] Maury ORR COOPER, Unavailable Unavailable FAUSTO SCHWARTZ, Unavailable Unavailable FAUSTO HENDERSON [facility] [place]available [place], [facility] [place] [facility] Unavailable Un[place], [facility] [place] [facility], [facility] Unavailable Unavailable CHAKRABORTYCOLLIN RENTERIA [facility] Unavailable Unavailable DEXTER PALMER [facility] Unavailable Unavailable DEXTER DAVIDSON, DAVIDSON Unavailable Unavailable DAVIDSON NAN, DAVIDSON Unavailable Unavailable NAN ZAHRAABDIAS RENTERIA, Unavailable Unavailable RAYO MORALES Unavailable Unavailable TOBrijesh [facility] Unavailable Unavailable [facility] Unavailable Unavailable INC, [facility] APURVA PETE, APURVA PETE Unavailable Unavailable JUDI JETT Unavailable Unavailable RICHIE VIOLA ROG, Unavailable Unavailable VIOLA ROG [facility] Unavailable Un[facility] Unavailable Unavailable [facility], [facility] Un[facility] & [facility], [facility] Unavailable Unavailable EMERGENCY PHYS, [facility], Unavailable Unavailable [facility] HUBBARD RYA, HUBBARD Unavailable Unavailable RYA STEARLEY SET, Unavailable Unavailable STEARLEY SET KRAUS DONALD, KRAUS Unavailable Unavailable DONALD TANNOCK LIS, TANNOCK Unavailable Unavailable LIS KENTRELL LEE, Unavailable Unavailable KENTRELL LEE TRUE, TRUE Unavailable Unavailable [facility] Unavailable Unavailable MEDICINE P, [facility] MEDICINE [facility], Unavailable Unavailable [facility] Unavailable Un[facility] [place] [facility] SISSY BOATENG, SISSY Unavailable Unavailable TASNEEM Purpose Continuity of Care Document - 09-30-2007 through 2016 Problems Code Diagnosis DOS Provider Status R079 CHEST PAIN 09-03-2016 [facility] R9431 ABNORMAL 09-03-2016 [facility] ELECTROCARD [facility] IOGRAM [facility] E109 TYPE 1 07-07-2016 [facility] DIABETES FAMILY MELLITUS MEDICINE P WITHOUT COMPLICATIO NS Z23 ENCOUNTER 07-07-2016 [facility] FOR [facility] IMMUNIZATIO MEDICINE P N E1165 TYPE 2 06-06-2016 [facility] DI[facility]ETES [facility] [place] R109 UNSPECIFIED 06-06-2016 [facility] ABDOMINAL CO PAIN AMBULANCE R7309 OTHER 06-06-2016 [facility] ABNORMAL CO GLUCOSE AMBULANCE R739 HYPERGLYCEM 06-06-2016 [facility] UNSPECIFIED PHYS Z794 INTERMEDIATE 06-06-2016 [facility] CURRENT USE [facility] OF INSULIN E1065 TYPE 1 06-03-2016 [facility] ME[place]US [place]CEM [place] R1030 LOWER 06-03-2016 [facility] ABDOMINAL [facility] PAIN UNSPECIFIED Z590 HOMELESSNES 06-03-2016 [facility] Z9049 ACQUIRED 06-03-2016 [place] [facility] SSD SPEC PARTS DIGESTIVE TRACT E0810 DM DUE TO 06-01-2016 [facility] UNDERLYING FAMILY COND MEDICINE P W/KETOACIDO S W/O COMA E860 DEHYDRATION 06-01-2016 [facility] FAM[facility] MEDICINE P E1010 TYPE 1 05-31-2016 [facility] MELL[facility]US [facility] W/KETOACIDO SIS W/O COMA K3580 UNSPECIFIED 05-31-2016 [facility] AC[facility] APPENDICITI [facility] S K5900 CONSTIPATIO 05-31-2016 [facility] UNSPECIFIED K651 PERITONEAL 05-31-2016 [facility] ABSCESS [facility] R1032 LEFT LOWER 05-31-2016 [facility] PAIN R188 OTHER 05-31-2016 [facility] ASC[facility] J92421 ENCOUNTER 05-31-2016 [facility] FLW SURG DIGESTIVE SYS Z9114 PATIENTS 05-31-2016 [facility] NONCOMPLIAN CE W/MEDICATIO N REGIMEN Z9889 OTHER 05-31-2016 [facility] POSTPROCEDU RAL STATES G8918 OTHER ACUTE 05-30-2016 [facility] POSTPROCEDU [facility] RAL PAIN E1040 TYPE 1 05-28-2016 [place] [facility] MELL[facility]US [facility] W/DIAB NEUROPATHY UNS I10 ESSENTIAL 05-28-2016 [place] [facility] PRIMARY [facility] HYPERTENSIO FOUNDATION N K37 UNSPECIFIED 05-28-2016 [facility] APPENDICITI [facility] S K389 DISEASE OF 05-28-2016 [facility]ENDIX [facility] UNSPECIFIED HOSPI R160 HEPATOMEGAL 05-28-2016 [place] [facility] Y NOT SERV ELSEWHERE [facility]OUNDATION CLASSIFIED R6882 DECREASED 05-28-2016 [place] [facility] LIBIDO SERV [facility] E1169 TYPE 2 05-25-2016 [place] [facility] DI[facility] SERV MELLITUS [facility] W/OTH SPEC COMPLICATIO N E872 ACIDOSIS 05-25-2016 [facility] E869 VOLUME 01-25-2016 [facility] UNSPEC[facility]IED [facility] R112 NAUSEA WITH 01-25-2016 [facility]OMITING [facility] UNSPEC[facility]IED [facility]P K088 OTH SPEC 01-22-2016 [facility] DISORDERS EMERGENCY TEETH & PHYS PSC SUPPORTING STRUCTURES K029 DENTAL 01-20-2016 [facility] CARIES EMERGENCY UNSPECIFIED PHYS PSC E861 HYPOVOLEMIA 11-09-2015 [facility] R030 ELEVATED 11-09-2015 [facility] BLOOD-PRESS EMERGENCY URE READING PHYS PSC WITHOUT DX HTN R1110 VOMITING 11-09-2015 [facility]PEC[facility] 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 LLC STATED UNCNTRL 82537 DIAB 10-10-2009 [facility] W/KETOACIDO EMERGENCY S TYPE SERVICES II/UNS NOT ASSOCIATES STATED UNCNTRL 7840 HEADACHE 10-10-2009 [facility] 16805 UNSPECIFIED 08-27-2009 [facility] VIRAL [facility] INFECTION IN CCE & UNS SITE 0091 COLITIS 07-15-2009 [facility] ENTERIT&GAS [facility]IATES TROENTERIT INF ORIGIN V0481 NEED 07-10-2009 [facility]/CO PROPHYLACTI HEALTH C CENTRAL VACCINATION BANK ACCT &INOCULATIO N FLU 4720 CHRONIC 06-25-2009 [facility] RHINITIS [facility] 25689 UNS 06-25-2009 [facility] GASTRITIS&G [facility] ASTRODUODIT IS W/O MENTION HEMORR 4779 ALLERGIC 06-19-2009 [facility] CAUSE UNSPECIFIED 02561 UNSPECIFIED 06-05-2009 [facility] ACUTE [facility] NONSUPPURAT JAS OTITIS MEDIA 490 BRONCHITIS 06-05-2009 [facility] NOT ASSOCIATES SPECIFIED ACUTE OR CHRONIC 4619 ACUTE 05-28-2009 [facility] SINUSITIS, ASSOCIATES UNSPECIFIED 45529 CONTUSION 02-03-2009 [place] [facility] 9245 CONTUSION 02-03-2009 [facility] OF EMERGENCY UNSPECIFIED SERVICES PART OF ASSOCIATES LOWER LIMB E8490 PLACE OF 02-03-2009 [place] OCCURRENCE, MEDICAL HOME IMAGING ASS[facility] E8852 FALL FROM 02-03-2009 [place] [facility] 7062 SEBACEOUS 01-23-2009 PATHOLOGY & CYST CYTOLOGY LAB 13031 DIAB W/O 01-22-2009 [facility], COMP TYPE JUDAH II/UNS NOT STATED UNCNTRL 2392 NEOPLASMS 01-16-2009 [facility] UNSPEC ASSOCIATES NATURE BONE SOFT TISSUE&SKIN 94404 REGULAR 01-04-2009 [facility] ASTIGMATISM VISION 23272 CONTUSION 11-01-2008 [facility] E8859 FALL FROM 11-01-2008 [place] OTHER MEDICAL SLIPPING IMAGING TRIPPING OR ASSOCIATES STUMBLING 03880 NAUSEA WITH 10-18-2008 [facility] VOMIT[facility] 5206 DISTURBANCE 08-20-2008 [facility] S IN TOOTH FOR ERUPTION ORAL&MAXILL OFACIAL SURGERY 44534 UNSPECIFIED 08-09-2008 [facility] INFECTIVE [facility]OCI[facility] OTITIS EXTERNA 97254 DIAB W/O 04-30-2008 [facility] NURSE MENTION PRACTITIONE COMP TYPE I R GROUP [JUV TYPE] UNCNTRL 26183 DIAB 10-15-2007 [facility] W/HYPEROSMO SERV LARITY TYPE FOUNDATIO I [JUV TYPE] UNCNTRL 7906 OTHER 10-14-2007 [facility] ABNORMAL SERV BLOOD F[facility]ATIO CHEMISTRY V1581 PERS HX 10-14-2007 [facility] NONCOMPLIAN SERV CE W/MED TX FOUNDATIO [...] CY BL NT ET HI AN A AL 16 09 09 00 21 6 EA [...] 00 7. 7 [address] 06 -2 -[address] 70 t [...] ANTOINE No VACCIN 2008 ON CO E [facility] [place] 0.5 ML DOSAGE IM USE Procedures Procedure DOS Code Location Performer Comment RADIOLOGI 42712 [place] TRUE C 6 MEDICAL EXAMINATI SERV ON CHEST FOUNDATIO SINGLE N VIEW FRONTAL ECG 56204 [place] DAVIDSON ROUTINE 6 MEDICAL ECG SERV W/LEAST FOUNDATIO 12 LDS N I&R ONLY IIV4 VACC 12669 [facility] PRESRV 6 [facility] WAD FREE 0.5 MEDICINE ML FOR IM P USE ALBUMIN 44076 [facility] URINE 6 [facility] MICROALBU MEDICINE MIN P SEMIQUANT ITATIVE GLUC BLD 39564 [facility] GLUC MNTR 6 [facility] DEV MEDICINE CLEARED P FDA SPEC HOME USE IM ADM 67855 [facility] PRQ ID 6 [facility] WAD SUBQ/IM MEDICINE NJXS EA P VACCINE PPSV23 76349 [facility] VACCINE 2 6 [facility] WAD YRS OR MEDICINE OLDER FOR P SUBQ/IM USE IM ADM 25863 [facility] PRQ ID 6 [facility] WAD SUBQ/IM MEDICINE NJXS 1 P VACCINE COMPREHEN 54132 [facility] SIVE [address] [place] [address] METABOLIC PANEL THER 46141 [facility] PROPH/DX [address] [place] [address] NJX IV PUSH SINGLE/1S T SBST/DRUG GLUC BLD 36983 [facility] GLUC MNTR [address] [place] [address] DEV CLEARED FDA SPEC HOME USE URNLS DIP [address] STICK/TAB LET REAGENT AUTO MICROSCOP Y GROUND A0425 JESSAMINE JESSAMINE MILEAGE 6 CO CO PER AMBULANCE AMBULANCE STATUTE MILE THERAPEUT 80716 [facility] IC [address] [place] [address] [place] [address] HYDRATION EACH ADDITIONA L HOUR INJECTION J2405 [address] ONDANSETR ON HCL PER 1 MG AMB A0427 [facility] JESSAMINE SERVICE 6 CO CO ALS AMBULANCE AMBULANCE EMERGENCY TRANSPORT LEVEL [address] COMPLETE AUTO&AUTO DIFRNTL WBC BLOOD 39935 [facility] COUNT 6 Y Y COMPLETE [facility] [place] [address] [facility] LIPASE Y Y HOSPITAL HOSPITAL ECG 00978 [facility] ROUTINE 6 MEDICAL NAN ECG SERV W/LEAST FOUNDATIO 12 LDS N I&R ONLY ECG 06606 [facility] ROUTINE 6 Y Y ECG [facility] HOSPITAL W/LEAST 12 LDS TRCG ONLY W/O I&R INFUSION J7030 [facility] NORMAL 6 Y Y SALINE [facility] SOLUTION 1000 CC INFUSION J70[address] [facility] NORMAL 6 Y Y SALINE [facility] SOLUTION 250 CC COMPREHEN 99826 [facility] SIVE 6 Y Y METABOLIC HOSPITAL HOSPITAL PANEL INJECTION J1815 [facility] INSULIN 6 Y Y PER 5 [place] [address] [facility] INFUSION 6 Y Y THERAPY/P HOSPITAL [facility] ROPHYLAXI S /DX 1ST TO 1 HR KETONE 34966 [facility] BODIES Y Y SERUM [facility] [place] [address] [facility] INFUSION 6 Y Y THERAPY [facility] PROPHYLAX IS/DX EA HOUR URNLS DIP 10236 [facility] 6 Y Y STICK/TAB [facility] LET RGNT AUTO W/O MICROSCOP Y THERAPEUT 31856 [facility] IC 6 Y Y PROPHYLAC [facility] TIC/DX INJECTION SUBQ/[place] [address] [facility] LACTATE 6 Y Y HOSPITAL HOSPITAL GASES 98466 [facility] BLOOD PH 6 Y Y DIRECT [facility] HOSPITAL MEGHAN XCPT PULSE [facility] 50334 [facility] DISCHARGE 6 [place] FAMILY K GIN DAY MEDICINE MANAGEMEN P T 30 MIN/< [place] [address] [place] MERHAR ABDOMEN & 6 MEDICAL GAR PELVIS SERV W/CONTRAS FOUNDATIO T N MATERIAL INITIAL 11184 [facility] HOSPITAL 6 MEDICAL CARE/DAY SERV [address] [place] [address] [place] NATIVIDAD ESTHER ABDOMEN & 6 MEDICAL PELVIS SERV W/CONTRAS FOUNDATIO T N MATERIAL INITIAL 22589 [facility] INPATIENT 6 MEDICAL LIS CONSULT SERV NEW/ESTAB FOUNDATIO PT 40 N MIN ANESTHESI 34126 [facility] KAY TANESHA A 6 LTH INTRAPERI ANESTHESI TONEAL A PSC LOWER ABD W/LAPS NOS LAPAROSCO 10182 [place] KRAUS PIC 6 MEDICAL DONALD APPENDECT SERV QUINN FOUNDATIO N LEVEL III 55782 [facility] SURG 6 Y OF TASNEEM PATHOLOGY [facility] GROSS&JAUN ROSCOPIC EXAM ECG 70702 [place] APURVA PETE ROUTINE 6 MEDICAL ECG SERV W/LEAST FOUNDATIO 12 LDS N I&R ONLY AMB A0427 FERN FERN SERVICE 6 [place]AY[place] FAYETTE ALS URBAN URBAN EMERGENCY COGOVT COGOVT TRANSPORT LEVEL 1 GROUND A0425 FERN FERN MILEAGE 6 [place]AY[place] FAYETTE PER URBAN URBAN STATUTE COGOVT COGOVT [facility] [address] [facility], DISCHARGE 6 [place] JR., DO DAY MEDICINE OSC MANAGEMEN P T 30 MIN/< GROUND A0425 FERN FERN MILEAGE 6 FAYETTE FAYETTE PER URBAN URBAN STATUTE COGOVT COGOVT MILE AMB A0427 FERN FERN SERVICE 6 FAYETTE FAYETTE ALS URBAN URBAN EMERGENCY COGOVT COGOVT TRANSPORT LEVEL 1 THERAPEUT 65269 [facility] IC 6 [facility] INJECTION HOSP HOSP IV PUSH EACH NEW DRUG INJECTION C9113 [facility] 6 [facility] PANTOPRA[place] [address] [facility] INFUSION 6 [facility] HYDRATION HOSP HOSP EACH ADDITIONA L HOUR INJECTION J2405 [facility] 6 [facility] ONDANSETR HOSP HOSP ON HCL PER 1 MG THER 56606 [facility] PROPH/DX 6 [facility] NJX IV HOSP HOSP PUSH SINGLE/1S T SBST/[place] [address] [facility] AMYLASE 6 [facility] H[facility] HOSP URNLS DIP 08665 [facility] 6 [facility] STICK/TAB HOSP HOSP LET RGNT AUTO W/O MICROSCOP Y COMPREHEN 18915 [facility] SIVE 6 [facility] METABOLIC HOSP HOSP PANEL GLUCOSE 96711 [facility] BLOOD 6 [facility] REAGENT [facility]OSP HOSP STRIP INJECTION J1170 [facility] 6 [facility] HYDROMORP HOSP HOSP ROHAN UP TO 4 MG CUL BACT 65020 [facility] XCPT 6 [facility] URINE [facility]OSP HOSP BLOOD/STO OL AEROBIC ISOL CULTURE 12649 [facility] TYPING 6 [facility] IMMUNOLOG [facility]P HOSP IC OTH/THN IMMUNOFLU ORES BLOOD 98278 [facility] COUNT 6 [facility] COMPLETE HOSP HOSP AUTO&AUTO DIFRNTL WBC KETONE 60453 [facility] BODIES 6 [facility] [place] [address] [facility] LIPASE 6 [facility]OSP INJECTION J1170 [facility] 6 [facility] HYDROMORP HOSP HOSP ROHAN UP TO 4 MG BLOOD 93614 [facility] COUNT 6 [facility] COMPLETE HOSP HOSP AUTO&AUTO DIFRNTL WBC DRUG TEST G0478 [facility] 6 [facility] PRESUMP;R HOSP HOSP EAD BY INSTRUM-A ST DC OPT OBV BLOOD 91257 [facility] COUNT 6 [facility] HEMATOCRI [facility]OSP HOSP T COMPREHEN 45259 [facility] SIVE 6 [facility] [place] [address] [facility] INFUSION 6 [facility] HYDRATION HOSP HOSP EACH ADDITIONA L HOUR THERAPEUT 69687 [facility] IC 6 [facility] INJECTION HOSP HOSP IV PUSH EACH NEW DRUG BASIC 18071 [facility] METABOLIC 6 [facility] PANEL [place] [address] [facility] INFUSION 6 [facility] THERAPY/P HOSP HOSP ROPHYLAXI S /DX 1ST TO 1 HR THER 29394 [facility] PROPH/DX 6 [facility] NJX EA HOSP HOSP SEQL IV PUSH SBST/DRUG FAC ARTERIAL 38952 [facility] PUNCTURE 6 [facility] WITHDRAWA [facility] 28384 [facility] PROPH/DX 6 [facility] NJX EA HOSP HOSP SEQL IV PUSH SBST/DRUG FAC THERAPEUT 23020 [facility] IC 6 [facility] INJECTION HOSP HOSP IV PUSH EACH NEW DRUG INJECTION J2405 [facility] 6 [facility] ONDANSETR HOSP HOSP ON HCL PER 1 MG COMPREHEN 77036 [facility] SIVE 6 [facility] [place] [address] [facility] INFUSION 6 [facility] HYDRATION HOSP HOSP EACH ADDITIONA L HOUR URNLS DIP 44446 [facility] 6 [facility] STICK/TAB HOSP HOSP LET RGNT AUTO W/O MICROSCOP Y THER 65730 [facility] PROPH/DX 6 [facility] NJX IV HOSP HOSP PUSH SINGLE/1S T SBST/DRUG THERAPEUT 17161 [facility] IC 6 [facility] PROPHYLAC H[facility]P HOSP TIC/DX INJECTION SUBQ/IM GASES 01878 [facility] BLOOD PH 6 [facility] DIRECT HOSP HOSP MEGHAN XCPT PULSE OXIMITRY GLUCOSE 85943 [facility] BLOOD 6 [facility] REAGENT HOSP HOSP STRIP INJECTION J0500 [facility] 6 [facility] DICYCLOMI HOSP HOSP NE HCL UP TO 20 MG BLOOD 22677 [facility] COUNT 6 [facility] COMPLETE HOSP HOSP AUTO&AUTO DIFRNTL WBC KETONE 58812 [facility] BODIES 6 [facility] [place] [address] [facility] LIPASE 6 [facility] H[facility]P HOSP OPHTH 67831 [facility] J[facility] ALL MEDICAL 6 XM&EVAL COMPRE NEW PT 1/> VST DETERMINA 93447 [facility] ALL TION 6 REFRACTIV E STATE CRITICAL 94010 [facility] CARE 5 EMERGENCY ALYCE ILL/INJUR PHYS PSC ED PATIENT INIT 30-74 MIN ECG 64212 [facility] RUSCHMAN ROUTINE 5 EMERGENCY ALYCE ECG PHYS PSC W/LEAST 12 LDS I&R ONLY CV STRS 29832 [facility] TST [facility] XERS&/OR MEDICAL RX CONT GROUP ECG W/O I&R CV STRS 16132 [facility] SEMDER TST 4 [facility] XERS&/OR MEDICAL RX CONT GROUP ECG I&R ONLY SBSQ [address] 25 & H MINUTES ECG 75861 [facility] SEMDER ROUTINE 4 [facility] ECG MEDICAL W/LEAST GROUP 12 LDS I&R ONLY INITIAL [address] 70 & H MINUTES BLD GLU A4253 [facility] LANDARELL TEST/REAG 0 HOME MED HOME MED T STRIPS EQUIP. EQUIP. HOME BLD [facility] GLU MON-50 BLD GLU A4253 [facility] GUSTAVO TEST/REAG 0 HOME MED HOME MED T STRIPS EQUIP. EQUIP. HOME BLD [facility] GLU MON-50 GLUCOSE 83896 FAMILY MULBERRY, POST 0 CARE JACKY T GLUCOSE ASSOCIATE DOSE S HEMOGLOBI 35574 FAMILY MULBERRY, N 0 CARE JACKY T GLYCOSYLA ASSOCIATE JADYN A1C S BLD GLU A4253 [facility] GUSTAV[facility] TEST/REAG 0 HOME MED HOME MED T STRIPS EQUIP. EQUIP. HOME BLD [facility] GLU MON-50 RADIOLOGI 08697 [place] BEATRIZ, C 0 MEDICAL FAUSTO EXAMINATI IMAGING ON CHEST [place] [address] [place] [facility], HEAD/BRAI 0 MEDICAL FAUSTO N W/O IMAGING CONTRAST ASSOCIATE MATERIAL S 3D 96545 [place] BEAT[facility], RENDERING 0 MEDICAL FAUSTO W/INTERP IMAGING & ASSOCIATE POSTPROCE S SS SUPERVISI ON BLOOD 10098 FAMILY GRAYSONEET, COUNT 9 CARE R PEPE COMPLETE ASSOCIATE AUTO&AUTO S DIFRNTL WBC IIV3 05731 DHS/CO BILL VACCINE 9 HEALTH CO [facility] VIRUS 0.5 BANK ACCT ML DOSAGE IM USE BLD GLU A4253 [facility] GUST[facility] TEST/REAG 9 HOME MED HOME MED T STRIPS EQUIP. EQUIP. HOME BLD [facility] GLU WED-50 RADIOLOGI 29578 BILL KHAN C 9 MEM HOSP MEM HOSP EXAMINATI INC INC ON PELVIS 1/2 VIEWS RADIOLOGI 77277 [place] GURJIT C 9 MEDICAL NGUYEN P EXAMINATI IMAGING ON FEMUR ASSOCIATE 2 VIEWS S RADEX HIP 80451 [place] GURJIT 9 MEDICAL NGUYEN P UNILATERA IMAGING L ASSOCIATE COMPLETE S MINIMUM 2 VIEWS LEVEL III 14407 PATHOLOGY PATHOLOGY SURG 9 & & PATHOLOGY CYTOLOGY CYTOLOGY LAB LAB GROSS&JAUN ROSCOPIC EXAM EXC B9 16347 SCHULSTAD SCHULSTAD LESION 9 , JUDAH , JUDAH MRGN XCP SK TG T/A/L 1.1-2.0 CM FITTING 23984 CRISTINA DWYER, SPECTACLE 9 VISION MAXIMILIANO M S XCPT APHAKIA MONOFOCAL FRAMES V2020 CRISTINA DWYER, PURCHASES 9 VISION MAXIMILIANO M 1 VISN V2103 CRISTINA DWYER PLANO 9 VISION MAXIMILIANO M TO+/-4.00 D SPHER 0.12-2.00 D CYL EA OPHTH 43161 CRISTINA DWYER, MEDICAL 9 VISION MAXIMILIANO Murray XM&EVAL COMPRHNSV ESTAB PT 1/> RADEX 08011 [facility]Caitlin MCGARRYBEATRIZ, WRIST 9 MEDICAL FAUSTO COMPLETE IMAGING MINIMUM 3 ASSOCIATE VIEWS S HOSPITAL G0378 BILL KHAN OBSERVATI 9 [facility] ON INC INC SERVICE PER HOUR CULTURE 00825 BILL KHAN BACTERIAL 9 [facility] INC INC QUANTTATI VE COLONY COUNT URINE OBSERVATI 86667 FAMILY MULBERRY, ON CARE 9 CARE JACKY T DISCHARGE ASSOCIATE S [facility]LY [facility] T URNLS DIP 63348 BILL KHAN 9 MEM [facility] STICK/TAB INC INC LET REAGENT AUTO MICROSCOP Y GLUC BLD 38235 BILL KHAN GLUC MNTR 9 [facility] DEV INC INC CLEARED FDA SPEC HOME USE INITIAL 41286 FAMILY LOLYBERRY, OBSERVATI 9 CARE JACKY T ON ASSOCIATE CARE/DAY S 50 MINUTES HEMOGLOBI 52360 BILL KHAN N 9 MEM HOSP MEM HOSP GLYCOSYLA INC INC JADYN A1C HOSPITAL G0378 BILL KHAN OBSERVATI 9 MEM [facility] ON INC INC SERVICE PER HOUR COMPREHEN 32478 BILL KHAN SIVE 9 MEM H[facility] METABOLIC INC INC PANEL BLOOD 96865 BILL KHAN COUNT 9 MEM [facility] COMPLETE INC INC AUTO&AUTO DIFRNTL WBC TOBACCO 25790 BILL ANTOINEON USE 9 MEM H[facility] CESSATION INC INC INTERMEDI ATE 3-10 MINUTES BLD GLU A4253 GUSTAVO CHEN TEST/REAG 9 HOME MED HOME MED T STRIPS EQUIP. EQUIP. HOME BLD [facility] GLU MON-50 DEEP [id number] [facility] ERYN, SEDATION/ 8 FOR PAULO Palacios GENERAL ORAL&MAXI ANESTHESI LLOFACIAL A-1ST 30 SURGERY MINUTES ORTHOPANT 12299 [facility] BONDRA OGRAM 8 FOR SIMA Mendiola ORAL&MAXI LLOFACIAL SURGERY BLD GLU A4253 GUSTAVO GUSTAVO TEST/REAG 8 HOME MED HOME MED T STRIPS EQUIP. EQUIP. [facility] GLU MON-[address] [facility] UNIVERS PANEL 8 [place] [address] [facility] GAMMAGLOB 8 Y Y [facility] IGD IGG IGM EACH HEMOGLOBI 24594 [facility] [place] OGDEN 8 NURSE SADIE SALDAÑAA PRACTITEDWARD JADYN A1C NER GROUP ALBUMIN 61387 [facility] URINE 8 Y Y MICROALBU [facility] MIN QUANTIATI VE IMMUNOASS 99241 [facility] AY 8 Y Y ANALYTE [facility] QUAL/SEMI QUAL MULTIPLE STEP COMPREHEN 14014 [facility] SIVE 8 Y Y METABOLIC [facility] PANEL CREATININ 43818 [facility] E OTHER 8 Y Y SOURCE [facility]PITAL COLLECTIO 78515 [facility] N VENOUS 8 Y Y BLOOD [facility] [place] [address] [facility] THYROID 8 Y Y STIMULATI [facility] NG HORMONE TSH HEMOGLOBI 20227 [facility] Barr 8 MEDICAL III, GLYCOSYLA SERV NORBERTO J JADYN A1C FOUNDATIO BLD GLU A4253 GUSTAVO GUSTAVO TEST/REAG 8 HOME MED HOME MED T STRIPS EQUIP. [facility]QU[facility]. [facility] GLU MON-50 BLOOD 57322 BILL ANTOINEON COUNT 8 MEM HOS[facility] HOS[facility] COMPLETE INC INC AUTO&AUTO DIFRNTL WBC [place]EMO[place] 59673 BILL ANTOINEON N 8 MEM HOSP MEM HOSP GLYCOSYLA INC INC JADYN A1C BASIC 37288 BILL ANTOINEON METABOLIC 8 MEM HOS[facility]OSP PANEL INC INC CALCIUM TOTAL BLD GLU A4253 GUSTAVO GUSTAVO TEST/REAG 8 HOME MED HOME MED T STRIPS EQUIP. EQU[facility]. [facility] GLU MON-50 BLD GLU A4253 GUSTAVO GUSTAVO TEST/REAG 8 HOME MED HOME MED T STRIPS EQUIP. EQUIP. [facility] GLU MON-50 HEMOGLOBI 40116 [facility] 8 MEDICAL III, GLYCOSYLA SERV NORBERTO J JADYN A1C FOUND[facility] HOME E0607 GUSTAVO CHEN BLOOD 8 HOME MED HOME MED GLUCOSE EQUIP. EQUIP. [facility] INITIAL [address] [place] [address] MEDICAL III, CARE/DAY SERV NORBERTO J 70 FOUNDATIO MINUTES KETONE 14728 [facility] BODIES 8 Y Y [facility] QUALITATI VE BASIC 53245 [facility] METABOLIC 8 Y Y PANEL HOSPITAL HOSPITAL CALCIUM TOTAL GASES 07460 [facility] BLOOD PH 8 Y Y DIRECT [facility]OS[facility]OSPITAL MEGHAN XCPT PULSE OXIMITRY HEMOGLOBI 00997 [facility] N 8 Y Y GLYCOSYLA [facility]PITAL JADYN A1C GLUC BLD 21516 [facility] GLUC MNTR 8 Y Y [facility] CLE[facility] FDA [facility] HOME USE INITIAL [id number] [facility] OBSERVATI 8 Y Y ON HOSPITAL HOSPITAL CARE/DAY 30 MINUTES INJECTION [id number] [facility] INSULIN 8 Y Y PER 5 [place] [address] [facility] INFUSION 8 Y Y HYDRATION [facility] INITIAL 31 MIN-1 HR COLLECTIO [id number] [facility] N VENOUS 8 Y Y BLOOD [facility] VENIPUNCT URE HEMOGLOBI [address] [place] [address] MEDICAL III, GLYCOSYLA SERV NORBERTO J JADYN A1C FOUNDATIO BLD GLU [id number] GUSTAVO CHEN TEST/REAG 8 HOME MED HOME MED T STRIPS EQUIP. EQUIP. HOME BLD [employer] GLU MON-50 Encounters Encounter Start End Date Code Location Performer Type Date OFFICE 45692 [facility] 6 6 [facility] WAD T VISIT MEDICINE 25 P MINUTES [facility] [address] OUTPATIEN T EMERGENCY [address]38 [facility] 6 6 RASHID VISIT EMERGENCY HIGH PHYS SEVERITY& THREAT FUNCJ EMERGENCY [address] DEPARTMEN T VISIT HIGH/URGE NT SEVERITY OFFICE 88371 [facility] 6 6 [place] [facility] NEE T VISIT MEDICINE 25 P MINUTES HOSPITAL UNIVERSIT - 6 6 Y OUTPATIEN HOSPITAL T EMERGENCY 71638 [facility] DEPT 6 6 Y VISIT HOSPITAL HIGH SEVERITY& THREAT FUNCJ EMERGENCY 64530 [facility] 6 6 [place] DEPARTMEN PHYSICIAN T VISIT S ASSIST HIGH/URGE NT SEVERITY EMERGENCY 67900 [place] 6 6 MEDICAL MELISSA DEPARTMEN SERV T VISIT FOUNDATIO HIGH/URGE N NT SEVERITY HOSPITAL UNIVERSIT - 6 6 Y INPATIENT HOSPITAL EMERGENCY 59618 [place] RA[place] ALL 6 6 MEDICAL DEPARTMEN SERV T VISIT FOUNDATIO MODERATE N SEVERITY EMERGENCY 64754 [place] [facility] DEPT 6 6 MEDICAL SET VISIT SERV HIGH FOUNDATIO SEVERITY& N THREAT FUNCJ EMERGENCY 52368 [place] 6 6 [facility] DEPARTMEN HOSP T VISIT HIGH/URGE NT SEVERITY HOSPITAL CENTRAL - 6 6 [facility] OUTPATIEN HOSP T EMERGENCY 30319 [facility] 6 6 EMERGENCY TOD DEPARTMEN PHYS PSC T VISIT MODERATE SEVERITY EMERGENCY 97676 [facility] DEPT 6 6 EMERGENCY ALYCE VISIT PHYS PSC HIGH SEVERITY& THREAT FUNCJ EMERGENCY 57841 [place] 6 6 [facility] DEPARTMEN HOSP T VISIT MODERATE SEVERITY HOSPITAL CENTRAL - 6 6 [facility] OUTPATIEN HOSP T EMERGENCY 85446 [facility] 6 6 EMERGENCY RYA DEPARTMEN PHYS PSC T VISIT HIGH/URGE NT SEVERITY HOSPITAL CENTRAL - 6 6 [facility] OUTPATIEN HOSP T HOSPITAL CRISTOBAL'S - 4 4 [facility] EMERGENCY 55963 [facility] 4 4 DEXTER DEXTER DEPARTMEN T VISIT MODERATE SEVERITY OFFICE 68405 FAMILY MULBERRY, OUTPATIEN 0 0 CARE JACKY T T VISIT ASSOCIATE 15 S MINUTES EMERGENCY 25350 [facility] PALACIOS DEPT 0 0 EMERGENCY GRISELDA VISIT SERVICES O HIGH SEVERITY& ASSOCIATE THREAT S [facility] BILL - 0 0 [facility] OUTPATIEN INC T OFFICE 52348 FAMILY KINA, OUTPATIEN 0 0 CARE R PEPE T VISIT ASSOCIATE 15 S MINUTES OFFICE 22163 FAMILY KINA, OUTPATIEN 9 9 CARE R PEPE T VISIT ASSOCIATE 15 S MINUTES OFFICE 50498 FAMILY KINA, OUTPATIEN 9 9 CARE R PEPE T VISIT ASSOCIATE 15 S MINUTES OFFICE 63289 FAMILY KINA, OUTPATIEN 9 9 CARE R PEPE T VISIT ASSOCIATE 15 S MINUTES OFFICE 81346 FAMILY MULBERRY, OUTPATIEN 9 9 CARE JACKY T T VISIT ASSOCIATE 15 S MINUTES OFFICE 06441 FAMILY Maury ORR OUTPATIEN 9 9 CARE G T VISIT ASSOCIATE 15 S MINUTES OFFICE 73839 FAMILY KINA, OUTPATIEN 9 9 CARE R PEPE T VISIT ASSOCIATE 15 S MINUTES OFFICE 77146 FAMILY MULBERRY, OUTPATIEN 9 9 CARE JACKY T T VISIT ASSOCIATE 15 S MINUTES EMERGENCY 96146 SHANNON PRINCE 9 9 EMERGENCY [facility] DEPARTMEN SERVICES T VISIT HIGH/URGE ASSOCIATE NT S SEVERITY EMERGENCY 87160 BILL 9 9 [facility] DEPARTMEN INC T VISIT LOW/MODER SEVERITY HOSPITAL BILL - 9 9 [facility] OUTPATIEN INC T OFFICE 44683 [facility] 9 9 , JUDAH SO ION NEW/ESTAB PATIENT 40 MIN OFFICE 72613 FAMILY MULBERRY, OUTPATIEN 9 9 CARE JACKY T T VISIT ASSOCIATE 15 S MINUTES HOSPITAL BILL - 9 9 [facility] BILL - 9 9 [facility] T OFFICE 65267 FAMILY DELVALLE OUTPATIEN 8 8 CARE JACKY T T VISIT ASSOCIATE 15 S MINUTES OFFICE 69401 [place] [facility] 8 8 FOR SIMA Mendiola T NEW 10 ORAL&MAXI MINUTES LLOFACIAL SURGERY OFFICE 36293 FAMILY DELVALLE OUTPATIEN 8 8 CARE JACKY T T VISIT ASSOCIATE 15 S MINUTES [address] - 8 8 Y [facility] T OFFICE 59840 [facility] 8 8 NURSE SADIE Britt T VISIT PRACTITIO 40 NER GROUP MINUTES OFFICE 51621 [facility] SHAINA [facility] 8 8 MEDICAL III, T VISIT SERV NORBERTO Mendiola 15 FOUNDATIO MINUTES OFFICE 29994 [facility] 8 8 CARE R PEPE T VISIT ASSOCIATE 15 S MINUTES OFFICE 22499 [facility] 8 8 CARE G T VISIT ASSOCIATE 15 S MINUTES HOSPITAL TAR HEEL - 8 8 [facility] T OFFICE 29331 FAMILY DELVALLE OUTPATIEN 8 8 CARE JACKY T T VISIT ASSOCIATE 15 S MINUTES OFFICE 09730 [facility] SH[facility] 8 8 MEDICAL III, T VISIT SERV NORBERTO J 25 FOUNDATIO MINUTES EMERGENCY 12410 [facility] 8 8 Y [facility] T VISIT HIGH/URGE NT SEVERITY EMERGENCY 64079 [facility] FALCON, DEPT 8 8 MEDICAL NIALL E VISIT SERV HIGH FOUNDATIO SEVERITY& THREAT FUN HOSPITAL UNIVERSIT - 8 8 Y [facility] T OFFICE 98208 [place] [facility] 8 8 MEDICAL III, T VISIT SERV NORBERTO Mendiola 25 FOUNDATIO MINUTES
--- OUTSIDE RECORDS SUMMARY | 2017-01-24 21:58 | External Medical Summary Rpt ---
Author Author , Organization [employer] Address Unknown Phone Unavailable Care Team Providers Care Telecommunication Equipment Repairer Name Role Phone ELIEZER ROSS Unavailable Unavailable GUILLERMO [facility] Unavailable Unavailable MEDICAL GROUP, [facility] KAY TANESHA, KAY TANESHA Unavailable Unavailable MARTÍNEZ, MARTÍNEZ Unavailable Unavailable BONDTANESHA HAMILTONNETH J, Unavailable Unavailable BONDTANESHA HAMILTONNETH J [facility], Unavailable Unavailable [facility] Unavailable Unavailable [facility], [facility] Maury ORR, KIRBY, Unavailable Unavailable FAUSTO SCHWARTZ, Unavailable Unavailable FAUSTO HENDERSON [facility] [place], [facility] [place] [facility] Un[place] [facility] [facility] [place] [facility] Unavailable Unavailable MONTY NICOLELEY Unavailable Unavailable DEXTER MONTY NICOLELEY Unavailable Unavailable DEXTER DAVIDSON, DAVIDSON Unavailable Unavailable DAVIDSON NAN, DAVIDSON Unavailable Unavailable NAN ZAHRA GIN, Unavailable Unavailable ZAHRA GIN RAYO MADDOX Unavailable Unavailable Brijesh [facility] Unavailable Unavailable [facility] Unavailable Unavailable INC, [facility] APURVA PETE, APURVA PETE Unavailable Unavailable HOSSLER RICHIE, HOSSLER Unavailable Unavailable RICHIE VIOLA MELISSA, Unavailable Unavailable VIOLA MELISSA [facility] Unavailable Un[facility] Unavailable Unavailable [facility], [facility] Unavailable [facility]available [facility]ALTH, [facility] Un[facility]available [facility] & H, [facility] JORDYN ALL, JORDYN ALL Unavailable Unavailable [facility] Unavailable Unavailable [facility], [facility] EZEKIEL PRINCE, Unavailable Unavailable EZEKIEL PRINCE JULIA E, Unavailable Unavailable NIALL FALCON MERJEY GAR, MERJEY Unavailable Unavailable GAR NGUYEN CAGLE, Unavailable Unavailable [...] Unavailable RUSCHMAN ALYCE, Unavailable Unavailable RUSCHMAN ALYCE JUDAH BARKLEY, Unavailable Unavailable FILIPPO, JUDAH MAXIMILIANO DWYER, Unavailable Unavailable MAXIMILIANO DWYER LESLIE K, Unavailable Unavailable SADIE OGDEN SEMDER CHR, SEMDER Unavailable Unavailable CHR MERRITT III, NORBERTO J, Unavailable Unavailable MERRITT III, NORBERTO J SOKAN, GRISELDA O, Unavailable Unavailable SOKAN, GRISELDA O [facility] Unavailable Unavailable [facility] Unavailable Unavailable [facility], [facility], Unavailable Unavailable [facility] STEARLEY SET, Unavailable Unavailable [facility]LEY SET KRAUS DONALD, KRAUS Unavailable Unavailable DONALD TANNOCK LIS, TANNOCK Unavailable Unavailable LIS KENTRELL INMAN NEJacky, Unavailable Unavailable KENTRELL LEE TRUE, TRUE Unavailable Unavailable [facility] Unavailable Unavailable MEDICINE P, [facility] MEDICINE [facility], Unavailable Unavailable [facility] Unavailable Unavailable [facility] SISSY TASNEEM, SISSY Unavailable Unavailable TASNEEM Purpose Continuity of Care Document - 09-30-2007 through 2016 Problems Code Diagnosis DOS Provider Status R079 CHEST PAIN 09-03-2016 [facility] R9431 ABNORMAL 09-03-2016 [facility] ELECTROCARD SERV IOGRAM [facility] E109 TYPE 1 07-07-2016 [facility] DIABETES FAMILY MELLITUS MEDICINE P WITHOUT COMPLICATIO NS Z23 ENCOUNTER 07-07-2016 [facility] FOR FAMILY IMMUNIZATIO MEDICINE P N E1165 TYPE 2 06-06-2016 [facility] DIABETES [facility] [place] R109 UNSPECIFIED 06-06-2016 [facility] ABDOMINAL CO PAIN AMBULANCE R7309 OTHER 06-06-2016 [facility] ABNORMAL CO GLUCOSE AMBULANCE R739 HYPERGLYCEM 06-06-2016 [facility] UNSPECIFIED PHYS Z794 CEMENT PATCHER 06-06-2016 [facility] CURRENT USE HOSPITAL OF INSULIN E1065 TYPE 1 06-03-2016 [facility] ME[place]US [place]YCEM [place] R1030 LOWER 06-03-2016 [facility] PAIN UNSPECIFIED Z590 HOMELESSNES 06-03-2016 [facility] Z9049 ACQUIRED 06-03-2016 [facility] SPEC PARTS DIGESTIVE TRACT E0810 DM DUE TO 06-01-2016 [facility] UNDERLYING FAMILY COND MEDICINE P W/KETOACIDO S W/O COMA E860 DEHYDRATION 06-01-2016 [facility] FAMILY MEDICINE P E1010 TYPE 1 05-31-2016 [facility] SERV MELLITUS FOUNDATION W/KETOACIDO SIS W/O COMA K3580 UNSPECIFIED 05-31-2016 [facility] ACUTE [facility] APPENDICITI FOUND[facility] S K5900 CONSTIPATIO 05-31-2016 [facility] UNSPECIFIED K651 PERITONEAL 05-31-2016 [facility] ABSCESS [facility] R1032 LEFT LOWER 05-31-2016 [facility] PAIN R188 OTHER 05-31-2016 [facility] ASCITES [facility] W48593 ENCOUNTER 05-31-2016 [facility]ARE [facility] FLW SURG DIGESTIVE SYS Z9114 PATIENTS 05-31-2016 [facility] NONCOMPLIAN CE W/MEDICATIO N REGIMEN Z9889 OTHER 05-31-2016 [facility] POSTPROCEDU RAL STATES G8918 OTHER ACUTE 05-30-2016 [facility] POSTPROCEDU FOUNDATION RAL PAIN E1040 TYPE 1 05-28-2016 [facility] DIABETES SERV MELLITUS FOUNDATION W/DIAB NEUROPATHY UNS I10 ESSENTIAL 05-28-2016 [facility] PRIMARY [facility] HYPERTENSIO FOUNDATION N K37 UNSPECIFIED 05-28-2016 [facility] APPENDIC[facility] S K389 DISEASE OF 05-28-2016 [facility] UNSPECIFIED HOSPI R160 HEPATOMEGAL 05-28-2016 [place] [facility] NOT SERV ELSEWHERE [facility]OUNDATION CLASSIFIED R6882 DECREASED 05-28-2016 [facility] LIBIDO SERV [facility]OUND[facility] E1169 TYPE 2 05-25-2016 [place] [facility] DIABET[facility] SERV MELLITUS [facility]OUND[facility] W/OTH SPEC COMPLICATIO N E872 ACIDOSIS 05-25-2016 [facility] E869 VOLUME 01-25-2016 [facility] UNSPECIFIED HOSP R112 NAUSEA WITH 01-25-2016 [facility] VOMITING [facility] UNSPECIFIED HOSP K088 OTH SPEC 01-22-2016 [facility] DISORDERS EMERGENCY TEETH & PHYS PSC SUPPORTING STRUCTURES K029 DENTAL 01-20-2016 [facility] CARIES [facility]ERGENCY UNSPECIFIED PHYS PSC E861 HYPOVOLEMIA 11-09-2015 [facility] R030 ELEVATED 11-09-2015 [facility] BLOOD-PRESS EMERGENCY URE READING PHYS PSC WITHOUT DX HTN R1110 VOMITING 11-09-2015 [facility] UNSPECIFIED [facility] HOSP 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 10-08-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 [facility] STATED UNCNTRL 27240 DIAB 10-10-2009 [facility] W/KETOACIDO EMERGENCY S TYPE SERVICES II/UNS NOT ASSOCIATES STATED UNCNTRL 7840 HEADACHE 10-10-2009 [facility] 94593 UNSPECIFIED 08-27-2009 [facility]AL [facility] INFECTION IN CCE & UNS SITE 0091 COLITIS 07-15-2009 [facility] ENTERIT&GAS [facility]ATES TROENTERIT INF ORIGIN V0481 NEED 07-10-2009 [facility]/CO PROPHYLACTI HEALTH C CENTRAL VACCINATION BANK ACCT &INOCULATIO N FLU 4720 CHRONIC 06-25-2009 [facility] RHINITIS [facility] 68191 UNS 06-25-2009 [facility] GASTRITIS&G [facility] ASTRODUODIT IS W/O MENTION HEMORR 4779 ALLERGIC 06-19-2009 [facility] CAUSE UNSPECIFIED 46002 UNSPECIFIED 06-05-2009 [facility] ACUTE [facility] NONSUPPURAT JAS OTITIS MEDIA 490 BRONCHITIS 06-05-2009 [facility] NOT ASSOCIATES SPECIFIED ACUTE OR CHRONIC 4619 ACUTE 05-28-2009 [facility] SINUSITIS, ASSOCIATES UNSPECIFIED 11986 CONTUSION 02-03-2009 [facility] 9245 CONTUSION 02-03-2009 [place] OF EMERGENCY UNSPECIFIED SERVICES PART OF ASSOCIATES LOWER LIMB E8490 PLACE OF 02-03-2009 [place] OCCURRENCE, [facility] HOME IMAGING [facility] E8852 FALL FROM 02-03-2009 [place] [facility] 7062 SEBACEOUS 01-23-2009 PATHOLOGY & CYST CYTOLOGY LAB 41270 DIAB W/O 01-22-2009 [facility], COMP TYPE JUDAH II/UNS NOT STATED UNCNTRL 2392 NEOPLASMS 01-16-2009 [facility] UNSPEC [facility]ATES NATURE BONE SOFT TISSUE&SKIN 76292 REGULAR 01-04-2009 [facility] ASTIGMATISM VISION 44106 CONTUSION 11-01-2008 [place] [facility] E8859 FALL FROM 11-01-2008 [place] OTHER MEDICAL SLIPPING IMAGING TRIPPING OR ASSOCIATES STUMBLING 27721 NAUSEA WITH 10-18-2008 [facility] CARE VOMITING ASSOCIATES 5206 DISTURBANCE 08-20-2008 [facility] S IN TOOTH FOR ERUPTION ORAL&MAXILL OFACIAL SURGERY 02926 UNSPECIFIED 08-09-2008 [facility] INFECTIVE [facility] OTITIS EXTERNA 39228 DIAB W/O 04-30-2008 [facility] NURSE MENTION PRACTITIONE COMP TYPE I R GROUP [JUV TYPE] UNCNTRL 26678 DIAB 10-15-2007 [facility] W/HYPEROSMO SERV LARITY TYPE FOUNDATIO I [JUV TYPE] UNCNTRL 7906 OTHER 10-14-2007 [facility] ABNORMAL SERV BLOOD FOUNDATIO CHEMISTRY V1581 PERS HX 10-14-2007 [facility] NONCOMPLIAN SERV CE W/MED TX FOUNDATIO PRS HAZARDS HLTH Medications Na ND Rx Da Fi Fi Am Da Di Ph RX Ph St me C No te ll ll ou ys ag ar # ys at rm s nt no ma ic us Or Da si cy ia de te s n re d HY 16 12 01 45 15 00 PR Price K[place]ALL 71 -1 -0 .0 00 L- ti OX 40 07 MA ve YZ 08 20 20 31 RT IN 21 16 17 41 E 0 62 PH HC AR L MA 25 CY MG #2 62 TA 8 BL ET RE 00 12 01 10 30 00 PR Ac LI 16 -1 -0 .0 00 L- ti ON 91 08 MA ve 83 20 20 82 RT NO 30 16 17 91 VO 2 48 PH LI AR N MA R CY 10 0 #2 UN 62 IT 8 /M L PE 57 12 01 28 7 00 PR Ac NI 23 -1 -0 .0 00 [...] CY OF CY NT HI AN A TR 45 01 01 [...] EA CY M NT HI AN A AM 00 01 [...] CY UL NT E HI AN A 68 12 12 00 [...] OF CY AL NT HI AN A 00 09 10 [...] CY BL NT ET HI AN A IL 16 09 09 00 21 6 EA [...] OF CY AL NT HI AN A AM 00 10 [...] CY UL NT E HI AN A 63 10 11 00 20 10 EA 99 MU Ac 82 -2 -[address] 98 LB ti 40 3- 7- 00 SI 58 ER ve 05 20 20 DE RY 64 08 08 0 PH BR AR IA MA N CY T OF CY NT HI AN A NO 00 06 10 [...] 00 7. 7 EA 97 No Ac RI 06 -2 -[address] 70 t [...] Is Given on t er Refuse d PPSV23 CINDI No 2016 WAD VACCIN E 2 YRS OR OLDER FOR SUBQ/I M USE IIV4 CINDI No VACC 2015 WAD PRESRV FREE 0.5 ML FOR IM USE IIV3 ANTOINE No VACCIN 2009 ON CO E [facility] 0.5 ML DOSAGE IM USE Procedures Procedure DOS Code Location Performer Comment RADIOLOGI 15086 NESTOR TRUE C 6 MEDICAL EXAMINATI SERV ON CHEST FOUNDATIO SINGLE N V[place] FRONTAL ECG [address]21 [place] [facility] ROUTINE 6 MEDICAL ECG SERV W/LEAST FOUNDATIO 12 LDS N I&R ONLY IM ADM 47353 [facility] OF CINDI PRQ ID 6 [place] [facility] WAD SUBQ/IM MEDICINE NJXS EA P VACCINE PPSV23 99774 [facility] VACCINE 2 6 [place] [facility] WAD YRS OR MEDICINE OLDER FOR P SUBQ/IM USE GLUC BLD 95999 [facility] GLUC MNTR 6 [place] [facility] WAD DEV MEDICINE CLEARED P FDA SPEC HOME USE ALBUMIN 03882 [facility] URINE 6 [place] FAMILY PRD MICROALBU MEDICINE MIN P SEMIQUANT ITATIVE IM ADM 64888 [facility] PRQ ID 6 [place] FAMILY WAD SUBQ/IM MEDICINE NJXS 1 P VACCINE IIV4 VACC 25646 [facility] [place] PRESRV 6 [place] W[place] FREE 0.5 MEDICINE ML FOR IM P USE INJECTION J2405 [address] [place] ON HCL PER 1 MG THER 20577 [facility] PROPH/DX [address] [place] [address] NJX IV PUSH SINGLE/1S T SBST/DRUG AMB A0427 [facility] JESSAMINE SERVICE 6 CO CO ALS AMBULANCE AMBULANCE EMERGENCY TRANSPORT LEVEL [address] STICK/[place] [address] [facility] INFUSION [address] [place] [address] HYDRATION EACH ADDITIONA L HOUR GLUC BLD 30818 [facility] GLUC MNTR [address] [place] [address] DEV CLEARED FDA SPEC HOME USE COMPREHEN [address] METABOLIC PANEL THERAPEUT [address] HOSPITAL INJECTION IV PUSH EACH NEW DRUG GROUND A0425 JESS[facility]INE JESSAMINE MILEAGE 6 CO CO PER AMBULANCE AMBULANCE STATUTE MILE BLOOD 93219 [facility] COUNT [address] [place] [address] COMPLETE AUTO&AUTO DIFRNTL WBC BLOOD [address] [facility] [place] [facility]ERS COUNT 6 Y Y COMPLETE HOSPITAL HOSPITAL AUTOMATED INFUSION J7050 [facility] [place] [facility] NORMAL 6 Y Y SALINE [facility] SOLUTION 250 CC ECG 94536 [place] [facility] ROUTINE 6 MEDICAL NAN ECG SERV W/LEAST FOUNDATIO 12 LDS N [place] [address] [facility] INFUSION 6 Y Y THERAPY/P HOSPITAL [facility] ROPHYLAXI S /DX 1ST TO 1 HR COMPREHEN 95398 [facility] SIVE 6 Y Y METABOLIC [facility] HOSPITAL PANEL URNLS DIP 61925 [facility] 6 Y Y STICK/TAB HOSPITAL HOSPITAL LET RGNT AUTO W/O MICROSCOP Y GASES 29361 [facility] BLOOD PH 6 Y Y DIRECT HOSPITAL HOSPITAL MEGHAN [place] [address] [facility] LACTATE 6 Y Y HOSPITAL HOSPITAL KETONE 79808 [facility] BODIES 6 Y Y [facility] QUANTITAT JAS INFUSION J7030 [facility] [place] [facility] NORMAL 6 Y Y SALINE [facility] SOLUTION [address] [place] [address] [facility] INFUSION 6 Y Y THERAPY [facility] HOSPITAL PROPHYLAX IS/DX EA HOUR THERAPEUT 22871 [facility] IC 6 Y Y PROPHYLAC HOSPITAL HOSPITAL TIC/DX INJECTION SUBQ/[place] [address] [facility] LIPASE 6 Y Y HOSPITAL HOSPITAL INJECTION J1815 [facility] INSULIN 6 Y Y PER 5 HOSPITAL HOSPITAL UNITS ECG 62655 [facility] ROUTINE 6 Y Y ECG HOSPITAL HOSPITAL W/LEAST 12 LDS TRCG ONLY W/O I&R HOSPITAL 02707 [facility] DISCHARGE 6 [place] FAMILY K GIN DAY MEDICINE MANAGEMEN P T 30 MIN/< [place] [address] [place] MERHAR ABDOMEN & 6 MEDICAL GAR PELVIS SERV W/CONTRAS FOUNDATIO T N MATERIAL INITIAL 36222 [facility] 6 MEDICAL CARE/DAY SERV [address] [place] [address] [place] NATIVIDAD SANTANA ABDOMEN & 6 MEDICAL PELVIS SERV W/CONTRAS FOUNDATIO T N MATERIAL ECG 84607 [place] APURVA PETE ROUTINE 6 MEDICAL ECG SERV W/LEAST FOUNDATIO 12 LDS N I&R ONLY LEVEL III 07263 [facility] SURG 6 Y OF TASNEEM PATHOLOGY [facility] GROSS&JAUN ROSCOPIC EXAM INITIAL 12876 [facility] INPATIENT 6 MEDICAL LIS CONSULT SERV NEW/ESTAB FOUNDATIO PT 40 N MIN LAPAROSCO 46202 [facility] DIEHLEY PIC 6 MEDICAL DONALD APPENDECT SERV QUINN FOUNDATIO N ANESTHESI 39672 [facility] KAY TANESHA A 6 LTH INTRAPERI ANESTHESI TONEAL A PSC LOWER ABD W/LAPS NOS AMB A0427 FERN FERN SERVICE 6 [place]AY[facility] FAY[facility] ALS [facility] EMERGENCY COG[facility] COGOVT TRANSPORT LEVEL 1 GROUND A0425 FERN FERN MILEAGE 6 [place] PER URBAN URBAN STATUTE [facility] [address]267 [facility], DISCHARGE 6 [place] FAMILY JR., DO DAY MEDICINE OSC MANAGEMEN P T 30 MIN/< GROUND A0425 FERN FERN MILEAGE 6 [place] FAY[place] PER URBAN URBAN STATUTE [facility] A0427 FERN FERN SERVICE 6 [place] FAY[facility] ALS U[facility] U[facility]AN EMERGENCY COG[facility]T COGOVT TRANSPORT LEVEL 1 CUL BACT 09592 [facility] XCPT 6 [facility]OLINESS [facility]INESS URINE HOSP HOSP BLOOD/STO OL AEROBIC ISOL CULTURE 88189 [facility] TYPING 6 HOLINESS HOLINESS IMMUNOLOG HOSP HOSP IC OTH/THN IMMUNOFLU ORES COMPREHEN 93660 [facility] SIVE 6 [facility]INESS METABOLIC HOSP HOSP PANEL URNLS DIP 95667 [facility] 6 [facility]OLINESS STICK/TAB HOSP HOSP [place] RG[place] [address] [facility] INFUSION 6 [facility] HYDRATION HOSP HOSP EACH ADDITIONA L HOUR GLUCOSE 13517 [facility] BLOOD 6 [facility]INESS [facility] [place] [address] [facility] AMYLASE 6 HOLINESS [facility]OLINESS HOSP HOSP BLOOD 89316 [facility] COUNT 6 [facility]INESS [facility] COMPLETE HOSP HOSP AUTO&AUTO DIFRNTL WBC THERAPEUT 43187 [facility] IC 6 [facility]OLINESS [facility]OLINESS INJECTION HOSP HOSP IV PUSH EACH NEW DRUG INJECTION C9113 [facility] 6 HOLINESS HOLINESS PANTOPRAZ HOSP HOSP OLE SODIUM PER VIAL INJECTION J1170 [facility] 6 [facility]OLINESS [facility]OLINESS HYDROMORP HOSP HOSP ROHAN UP TO 4 MG KETONE 05038 [facility] BODIES 6 HOLINESS [facility]OLINESS SERUM HOSP HOSP QUALITATI VE INJECTION J2405 [facility] 6 [facility]INESS [facility]OLINESS ONDANSETR HOSP HOSP ON HCL PER 1 [place] [address] [facility] LIPASE 6 [facility]INESS [facility]OLINESS HOSP HOSP THER 20029 [facility] PROPH/DX 6 [facility]INESS NJX IV HOSP HOSP PUSH SINGLE/1S T SBST/DRUG INJECTION J1170 [facility] 6 HOLINESS HOLINESS HYDROMORP HOSP HOSP ROHAN UP TO 4 MG DRUG TEST G0478 [facility] 6 HOLINESS HOLINESS PRESUMP;R HOSP HOSP EAD BY INSTRUM-A ST DC OPT OBV BLOOD 90899 [facility] COUNT 6 [facility]OLINESS [facility] HEMATOCRI HOSP HOSP T THERAPEUT 74859 [facility] IC 6 [facility]OLINESS [facility]INESS INJECTION [place]OS[place] [address] [facility] INFUSION 6 HOLINESS [facility]OLINESS THERAPY/P HOSP HOSP ROPHYLAXI S /DX 1ST TO 1 HR BLOOD 68909 [facility] COUNT 6 [facility]OLINESS [facility]INESS COMPLETE HOSP HOSP AUTO&[place] [address] [facility] INFUSION 6 HOLINESS [facility]INESS HYDRATION HOSP HOSP EACH ADDITIONA L HOUR COMPREHEN 15295 [facility] SIVE 6 [facility]OLINESS [facility] METABOLIC HOSP HOSP PANEL BASIC 54269 [facility] METABOLIC 6 [facility]INESS [facility] PANEL HOSP HOSP CALCIUM IONIZED THER 69988 [facility] PROPH/DX 6 HOLINESS [facility]OLINESS NJX EA HOSP HOSP SEQL IV PUSH SBST/DRUG FAC THER 67972 [facility] PROPH/DX 6 [facility]INESS [facility]OLINESS NJX EA HOSP HOSP SEQL IV PUSH SBST/DRUG FAC COMPREHEN 11682 [facility] SIVE 6 HOLINESS [facility]INESS METABOLIC HOSP HOSP PANEL URNLS DIP 54869 [facility] 6 [facility]OLINESS HOLINESS STICK/TAB HOSP HOSP LET RG[place] [address] [facility] INFUSION 6 [facility]OLINESS [facility]INESS HYDRATION HOSP HOSP EACH ADDITIONA L HOUR GASES 30454 [facility] BLOOD PH 6 HOLINESS HOLINESS DIRECT HOSP HOSP MEGHAN XCPT PULSE OXIMITRY GLUCOSE 01835 [facility] BLOOD 6 HOLINESS HOLINESS REAGENT HOSP HOSP STRIP BLOOD 63244 [facility] COUNT 6 HOLINESS HOLINESS COMPLETE HOSP HOSP AUTO&AUTO DIFRNTL WBC THERAPEUT 87115 [facility] IC 6 HOLINESS HOLINESS INJECTION HOSP HOSP IV PUSH EACH NEW DRUG ARTERIAL 65839 [facility] PUNCTURE 6 HOLINESS HOLINESS WITHDRAWA HOSP HOSP L BLOOD DX INJECTION J0500 [facility]AL 6 HOLINESS HOLINESS DICYCLOMI HOSP HOSP NE HCL UP TO 20 MG THER 77593 [facility] PROPH/DX 6 HOLINESS HOLINESS NJX IV HOSP HOSP PUSH SINGLE/1S T SBST/[place] [address] [facility] LIPASE 6 HOLINESS HOLINESS HOSP HOSP THERAPEUT 50118 [facility] IC 6 HOLINESS [facility]OLINESS PROPHYLAC HOSP HOSP TIC/DX INJECTION SUBQ/IM INJECTION J2405 [facility] 6 HOLINESS HOLINESS ONDANSETR HOSP HOSP ON HCL PER 1 MG KETONE 44022 [facility] BODIES 6 HOLINESS HOLINESS SERUM HOSP HOSP QUALITATI VE OPHTH 14771 [facility] JORDYN ALL MEDICAL 6 XM&EVAL COMPRE NEW PT 1/> VST DETERMINA 61971 [facility] JORDYN ALL TION 6 REFRACTIV E STATE ECG 30900 [facility] RUSCHMAN ROUTINE 5 EMERGENCY ALYCE ECG PHYS PSC W/LEAST 12 LDS I&R ONLY CRITICAL 68894 [facility] RUSCHMAN CARE 5 EMERGENCY ALYCE ILL/INJUR PHYS PSC ED PATIENT INIT 30-74 MIN CV STRS 52601 [facility] SEMDER TST 4 [facility] XERS&/OR MEDICAL RX CONT GROUP ECG W/O I&R CV STRS 53413 [facility] SEMDER TST 4 [facility] XERS&/OR MEDICAL RX CONT GROUP ECG I&R ONLY SBSQ [address] 25 & H MINUTES ECG 42910 HOL[facility] SEMDER ROUTINE 4 [facility] ECG MEDICAL W/LEAST GROUP 12 LDS I&R ONLY INITIAL [address] 70 & H MINUTES BLD GLU A4253 [facility] G[facility] TEST/REAG 0 HOME MED HOME MED T STRIPS EQUIP. EQUIP. HOME [employer] [facility] GLU WED-50 BLD GLU A4253 [facility] GUSTAVO TEST/REAG 0 HOME MED HOME MED T STRIPS EQUIP. EQUIP. HOME [employer] [facility] GLU MON-50 HEMOGLOBI 69020 FAMILY MULBERRY, N 0 CARE JACKY T GLYCOSYLA ASSOCIATE JADYN A1C S GLUCOSE 38237 FAMILY MULBERRY, POST 0 CARE JACKY T GLUCOSE ASSOCIATE DOSE S BLD GLU A4253 [facility] GUSTAVO TEST/REAG 0 HOME MED HOME MED T STRIPS EQUIP. EQUIP. HOME [employer] [facility] GLU MON-50 3D 01793 DELMIS GUPTA 0 MEDICAL FAUSTO W/INTERP IMAGING & [place] [address] [place] BEATRIZ, HEAD/BRAI 0 MEDICAL FAUSTO N W/O IMAGING CONTRAST ASSOCIATE MATERIAL S RADIOLOGI 13617 [place] BEATRI[place], C 0 MEDICAL FAUSTO EXAMINATI IMAGING ON CHEST ASSOCIATE SINGLE S VIEW FRONTAL BLOOD 17326 FAMILY KINA, COUNT 9 CARE R PEPE COMPLETE ASSOCIATE AUTO&AUTO S DIFRNTL WBC IIV3 89703 DHS/CO BILL VACCINE 9 HEALTH CO [facility] VIRUS 0.5 BANK ACCT ML DOSAGE IM USE BLD GLU A4253 GUSTAVO CHEN TEST/REAG 9 HOME MED HOME MED T STRIPS EQUIP. EQUIP. HOME BLD dakick GLU WED- RADIOLOGI 49128 BILL KHAN C 9 [facility] EXAMINATI INC INC ON FEMUR 2 VIEWS RADEX HIP 57700 [place] GURJIT 9 MEDICAL NGUYEN P UNILATERA IMAGING L ASSOCIATE COMPLETE S MINIMUM 2 VIEWS RADIOLOGI 52237 [place] GURJIT Tayla 9 MEDICAL NGUYEN P EXAMINATI IMAGING ON PELVIS ASSOCIATE 1/2 S VIEWS LEVEL III 36335 PATHOLOGY PATHOLOGY SURG 9 & & PATHOLOGY CYTOLOGY CYTOLOGY LAB LAB GROSS&JAUN ROSCOPIC EXAM EXC B9 24265 SUESTAD SCHULSTAD LESION 9 , JUDAH , JUDAH MRGN XCP SK TG T/A/L 1.1-2.0 CM OPHTH 14529 CRISTINA DWYER MEDICAL 9 VISION MAXIMILIANO M XM&EVAL COMPRHNSV ESTAB PT 1/> FITTING 78687 CRISTINA DWYER, SPECTACLE 9 VISION MAXIMILIANO M S XCPT APHAKIA MONOFOCAL FRAMES V2020 CRISTINA DWYER PURCHASES 9 VISION MAXIMILIANO M 1 VISN V2103 CRISTINA DWYER PLANO 9 VISION MAXIMILIANO M TO+/-4.00 D SPHER 0.12-2.00 D CYL EA RADEX 83302 [place] BEATRIZ, WRIST 9 MEDICAL FAUSTO COMPLETE IMAGING MINIMUM 3 ASSOCIATE VIEWS S CULTURE 59763 BILL KHAN BACTERIAL 9 [facility] INC INC QUANTTATI VE COLONY COUNT URINE OBSERVATI 20583 FAMILY LOLYBERRY, ON CARE 9 CARE JACKY T DISCHARGE ASSOCIATE S [facility] G0378 BILL KHAN OBSERVATI 9 [facility] ON INC INC SERVICE PER HOUR URNLS DIP 41627 BILL KHAN 9 [facility] STICK/TAB INC INC LET REAGENT AUTO MICROSCOP Y GLUC BLD 23648 BILL KHAN GLUC MNTR 9 [facility] DEV INC INC CLEARED FDA SPEC HOME USE HEMOGLOBI 57362 BILL KHAN N 9 [facility] GLYCOSYLA INC INC JADYN [address] G0378 BILL KHAN OBSERVATI 9 [facility] ON INC INC SERVICE PER HOUR COMPREHEN 37708 BILL KHAN SIVE 9 [facility] METABOLIC INC INC PANEL INITIAL 36278 ADELIA, OBSERVATI 9 CARE JACKY T ON ASSOCIATE CARE/DAY S 50 MINUTES TOBACCO 83664 BILL KHAN USE 9 [facility] CESSATION INC INC INTERMEDI ATE 3-10 MINUTES BLOOD 91401 BILL KHAN COUNT 9 [facility] COMPLETE INC INC AUTO&AUTO DIFRNTL WBC BLD GLU A4253 GUSTAVO CHEN TEST/REAG 9 HOME MED HOME MED T STRIPS EQUIP. EQUIP. HOME BLD dakick GLU MON-50 DEEP D9220 [facility] ERYN, SEDATION/ 8 FOR PAULO Palacios GENERAL ORAL&MAXI ANESTHESI LLOFACIAL A-1ST 30 SURGERY MINUTES ORTHOPANT 40356 [facility] BONDRA, OGRAM 8 FOR SIMA Mendiola ORAL&MAXI LLOFACIAL SURGERY BLD GLU A4253 GUSTAVO CHEN TEST/REAG 8 HOME MED HOME MED T STRIPS EQUIP. EQUIP. HOME [employer] GLU MON-[address] [facility] [place] [place] UNIVERS SIVE 8 Y Y METABOLIC [facility] PANEL CREATININ 34971 [facility]ERS UNIVERSIT E OTHER 8 Y [facility] [address] [facility] [facility] [place] UNIVERS N VENOUS 8 Y Y BLOOD [facility] [place] [address] [facility] THYROID 8 Y Y [facility] TSH LIPID 97489 [facility] PANEL 8 Y [place] [facility] [place] [address] [facility] GAMMAGLOB 8 Y Y [facility] IGD IGG IGM EACH HEMOGLOBI 22314 [facility] ALIN N 8 NURSE SADIE SALDAÑAA PRACTITIO JADYN A1C NER GROUP ALBUMIN 05153 [facility] URINE 8 Y [facility] MIN QUANTIATI VE IMMUNOASS 57046 [facility] AY 8 Y Y ANALYTE [facility] QUAL/SEMI QUAL MULTIPLE STEP [place]EMO[place]OBI [address] [place] [address] MEDICAL III, GLYCOSYLA SERV NORBERTO J JADYN A1C FOUNDATIO BLD GLU A4253 GUSTAVO LANDARELL TEST/REAG 8 HOME MED HOME MED T STRIPS EQUIP. EQUIP. HOME BLD [facility] GLU MON-50 BLOOD 18681 [facility] COUNT 8 [facility] COMPLETE INC INC AUTO&AUTO DIFRNTL WBC HEMOGLOBI 68798 [facility] N 8 [facility]OS[facility] GLYCOSYLA INC INC JADYN A1C BASIC 50827 [facility] METABOLIC 8 [facility] PANEL INC INC CALCIUM TOTAL BLD GLU A4253 GUSTAVO GUSTAVO TEST/REAG 8 HOME MED HOME MED T STRIPS EQUIP. EQUIP. HOME BLD [facility] GLU MON-50 BLD GLU A4253 GUSTAVO GUSTAVO TEST/REAG 8 HOME MED HOME MED T STRIPS EQUIP. EQUIP. HOME BLD [facility] GLU MON-50 [place] [address] [place] [address] MEDICAL III, GLYCOSYLA SERV NORBERTO J JADYN A1C FOUNDATIO HOME E0607 GUSTAVO LANDARELL BLOOD 8 HOME MED HOME MED GLUCOSE EQUIP. EQUIP. MONITOR [facility] INITIAL 18018 [place] [address] MEDICAL III, CARE/DAY SERV NORBERTO Mendiola 70 FOUNDATIO MINUTES KETONE 76714 [facility] BODIES 8 Y Y SERUM [facility] QUALITATI VE BASIC 51957 [facility] METABOLIC 8 Y Y [facility] CALCIUM TOTAL INJECTION [id number] [facility] INSULIN 8 Y Y PER 5 HOSPITAL HOSPITAL UNITS GASES 45193 [facility] BLOOD PH 8 Y Y DIRECT HOSPITAL HOSPITAL MEGHAN XCPT PULSE OXIMITRY COLLECTIO 85601 [facility] N VENOUS 8 Y Y BLOOD [facility] VENIPUNCT URE HEMOGLOBI 82507 [facility] N 8 Y Y GLYCOSYLA [facility] JADYN A1C GLUC BLD 10922 [facility] GLUC MNTR 8 Y Y DEV [facility] [place] [address] [facility] INFUSION 8 Y Y HYDRATION [facility] INITIAL 31 MIN-1 HR INITIAL 06531 [facility] OBSERVATI 8 Y Y ON HOSPITAL HOSPITAL CARE/DAY 30 MINUTES HEMOGLOBI 88427 [place] N 8 MEDICAL III, GLYCOSYLA SERV NORBERTO J JADYN A1C FOUNDATIO BLD GLU A4253 GUSTAVO CHEN TEST/REAG 8 HOME MED HOME MED T STRIPS EQUIP. [facility]QUIP. [facility] GLU MON-50 Encounters Encounter Start End Date Code Location Performer Type Date OFFICE 47686 [facility] 6 6 [place] FAMILY WAD T VISIT MEDICINE 25 P MINUTES [facility] [address] EMERGENCY [address] [facility] DEPT 6 6 RASHID VISIT EMERGENCY HIGH PHYS SEVERITY& THREAT FUN EMERGENCY [address] T VISIT HIGH/URGE NT SEVERITY OFFICE 07472 [facility] 6 6 [place] FAM[place] HENNY NEE T VISIT MEDICINE 25 P MINUTES EMERGENCY [address] [facility] [place] DEPT 6 6 Y VISIT HOSPITAL HIGH SEVERITY& THREAT [facility] EMERGENCY [address] [facility] 6 6 [place] [facility] T VISIT S ASSIST HIGH/URGE NT [facility] [address] UNIVERSIT - 6 6 Y INPATIENT HOSPITAL EMERGENCY 97570 [facility] VIOLA 6 6 MEDICAL MELISSA DEPARTMEN SERV T VISIT FOUNDATIO HIGH/URGE N NT SEVERITY EMERGENCY 14953 [facility] ANSARIS ALL 6 6 MEDICAL DEPARTMEN SERV T VISIT FOUNDATIO MODERATE N SEVERITY EMERGENCY 66330 [facility] MARTA DEPT 6 6 MEDICAL SET VISIT SERV HIGH FOUNDATIO SEVERITY& N THREAT [facility] CENTRAL - 6 6 [facility] OUTPATIEN HOSP T EMERGENCY 17241 [place] 6 6 [facility] DEPARTMEN HOSP T VISIT HIGH/URGE NT SEVERITY EMERGENCY 39755 [facility] 6 6 EMERGENCY TOD DEPARTMEN PHYS PSC T VISIT MODERATE SEVERITY EMERGENCY 00197 [facility] 6 6 EMERGENCY ALYCE VISIT PHYS PSC HIGH SEVERITY& THREAT FUN EMERGENCY 69014 [place] 6 6 [facility] DEPARTMEN HOSP T VISIT MODERATE SEVERITY HOSPITAL CENTRAL - 6 6 [facility] OUTPATIEN [facility] T EMERGENCY 87206 [place] 6 6 [facility] DEPARTMEN HOSP T VISIT HIGH/URGE NT SEVERITY HOSPITAL CENTRAL - 6 6 [facility] OUTPATIEN HOSP HOSPITAL CRISTOBAL'S - 4 4 [facility] EMERGENCY 94864 [facility] CHAKRABORTY 4 4 DEXTER DEXTER DEPARTMEN T VISIT MODERATE SEVERITY OFFICE 19001 FAMILY ADELIA, OUTPATIEN 0 0 CARE JACKY T T VISIT ASSOCIATE 15 S MINUTES EMERGENCY 12350 SHANNON PALACIOS, DEPT 0 0 EMERGENCY GRISELDA VISIT SERVICES O HIGH SEVERITY& ASSOCIATE THREAT S [facility] BILL - 0 0 MEM HOS[facility] OUTPATIEN [facility] T OFFICE 49780 FAMILY KINA, OUTPATIEN 0 0 CARE R PEPE T VISIT ASSOCIATE 15 S MINUTES OFFICE 12899 FAMILY KINA, OUTPATIEN 9 9 CARE R PEPE T VISIT ASSOCIATE 15 S MINUTES OFFICE 51945 FAMILY KINA, OUTPATIEN 9 9 CARE R PEPE T VISIT ASSOCIATE 15 S MINUTES OFFICE 46786 FAMILY KINA, OUTPATIEN 9 9 CARE R PEPE T VISIT ASSOCIATE 15 S MINUTES OFFICE 34338 FAMILY MULBERRY, OUTPATIEN 9 9 CARE JACKY T T VISIT ASSOCIATE 15 S MINUTES OFFICE 79545 FAMILY KIRBY J OUTPATIEN 9 9 CARE G T VISIT ASSOCIATE 15 S MINUTES OFFICE 57782 FAMILY KINA, OUTPATIEN 9 9 CARE R PEPE T VISIT ASSOCIATE 15 S MINUTES OFFICE 30364 FAMILY MULBERRY, OUTPATIEN 9 9 CARE JACKY T T VISIT ASSOCIATE 15 S MINUTES HOSPITAL BILL - 9 9 [facility] OUTPATIEN INC T EMERGENCY 07393 BILL 9 9 [facility] DEPARTMEN INC T VISIT LOW/MODER SEVERITY EMERGENCY 97007 SHANNON PRINCE, 9 9 EMERGENCY [facility] SERVICES T VISIT HIGH/URGE ASSOCIATE NT S SEVERITY OFFICE 90225 [facility] 9 9 , [id number] Anaya ION NEW/ESTAB PATIENT 40 MIN OFFICE 60056 FAMILY MULBERRY, OUTPATIEN 9 9 CARE JACKY T T VISIT ASSOCIATE 15 S MINUTES HOSPITAL BILL - 9 9 [facility] OUTPATIEN INC T HOSPITAL BILL - 9 9 [facility] OUTPATIEN INC T OFFICE 08533 FAMILY LOLYBERRY, OUTPATIEN 8 8 CARE JACKY T T VISIT ASSOCIATE 15 S MINUTES OFFICE 41987 [place] JUDE BULLARD [facility] 8 8 FOR SIMA Mendiola T NEW 10 ORAL&MAXI MINUTES LLOFACIAL SURGERY OFFICE 02032 [facility] CARE JACKY T T VISIT ASSOCIATE 15 S MINUTES OFFICE 96296 [facility] ALIN [facility] 8 8 NURSE SADIE Britt T VISIT PRACTITIO 40 NER GROUP MINUTES HOSPITAL [facility] - 8 [facility] 30844 NESTOR MERRITT [facility] 8 8 MEDICAL III, T VISIT SERV NORBERTO J 15 FOUNDATIO MINUTES OFFICE 92118 KINA, [facility] 8 8 CARE R PEPE T VISIT ASSOCIATE 15 S MINUTES OFFICE 29127 KIRBY Maury [facility] 8 8 CARE G T VISIT ASSOCIATE 15 S MINUTES HOSPITAL BILL [facility] 8 8 [facility] 66446 FAMILY DELVALLE [facility] 8 8 CARE JACKY Alegre T VISIT ASSOCIATE 15 S MINUTES OFFICE 64996 NESTOR MERRITT [facility] 8 8 MEDICAL III, T VISIT SERV NORBERTO J 25 FOUNDATIO MINUTES EMERGENCY 12438 NESTOR FALCON, DEPT 8 8 MEDICAL NIALL E VISIT SERV HIGH FOUNDATIO SEVERITY& THREAT [facility] UNIVERSIT - 8 8 Y [facility] EMERGENCY 73650 UNIVERSIT 8 8 Y [facility] T VISIT HIGH/URGE NT SEVERITY OFFICE 73544 NESTOR MERRITT [facility] 8 8 MEDICAL III, T VISIT SERV NORBERTO J 25 FOUNDATIO MINUTES
--- OUTSIDE RECORDS SUMMARY | 2017-01-24 21:58 | External Medical Summary Rpt ---
Author Author , Organization [employer] Address Unknown Phone Unavailable Care Team Providers Care Physician Office Secretary Name Role Phone ELIEZER ROSS Unavailable Unavailable GUILLERMO [facility] Unavailable Unavailable MEDICAL GROUP, [facility] KAY TANESHA, KAY TANESHA Unavailable Unavailable MARTÍNEZ, MARTÍNEZ Unavailable Unavailable BONDTANESHA HAMILTONNETH J, Unavailable Unavailable BONDTANESHA HAMILTONNETH J [facility], Unavailable Unavailable [facility] Unavailable Unavailable [facility], [facility] Maury ORR, KIRBY, Unavailable Unavailable FAUSTO SCHWARTZ, Unavailable Unavailable FAUSTO HENDERSON [facility] [place]available [place], [facility] [place] [facility] Unavailable Un[place] [facility] [place] [facility], [facility] Unavailable Unavailable MONTY NICOLELEY Unavailable Unavailable DEXTER MONTY NICOLELEY Unavailable Unavailable DEXTER DAVIDSON, DAVIDSON Unavailable Unavailable DAVIDSON NAN, DAVIDSON Unavailable Unavailable NAN ZAHRA GIN, Unavailable Unavailable ZAHRA GIN RAYO MADDOX Unavailable Unavailable Brijesh [facility] Unavailable Unavailable [facility] Unavailable Unavailable INC, [facility] APURVA PETE, APURVA PETE Unavailable Unavailable HOSSLER RICHIE, HOSSLER Unavailable Unavailable RICHIE VIOLA MELISSA, Unavailable Unavailable VIOLA MELISSA [facility] Unavailable Unavailable [facility], [facility] Unavailable Unavailable [facility], [facility] Unavailable Unavailable [facility], [facility] Unavailable Unavailable [facility]PITAL & H, [facility] [place] [facility] [...] [facility] Unavailable Unavailable [facility], [facility], Unavailable Unavailable [facility] STEARLEY SET, Unavailable Unavailable STEARLEY SET KRAUS DONALD, KRAUS Unavailable Unavailable DONALD TANNOCK LIS, TANNOCK Unavailable Unavailable LIS KENTRELL INMAN NEJacky, Unavailable Unavailable KENTRELL LEE TRUE, TRUE Unavailable Unavailable [facility] Unavailable Unavailable MEDICINE P, [facility] MEDICINE [facility], [facility]available [facility]available [facility] Unavailable [facility]available [place] [facility] SISSY TASNEEM, SISSY Unavailable Unavailable TASNEEM Purpose Continuity of Care Document - 09-30-2007 through 2016 Problems Code Diagnosis DOS Provider Status R079 CHEST PAIN 09-03-2016 [facility] R9431 ABNORMAL 09-03-2016 [facility] ELECTROCARD SERV IOGRAM [facility] E109 TYPE 1 07-07-[address] [facility] DIABETES FAMILY MELLITUS MEDICINE P WITHOUT COMPLICATIO NS Z23 ENCOUNTER 07-07-[address] [facility] FOR FAMILY IMMUNIZATIO MEDICINE P N E1165 TYPE 2 06-06-2016 [facility] DIABETES [facility] [place] R109 UNSPECIFIED 06-06-2016 [facility] ABDOMINAL CO PAIN AMBULANCE R7309 OTHER 06-06-2016 [facility] ABNORMAL CO GLUCOSE AMBULANCE R739 HYPERGLYCEM 06-06-2016 [facility] UNSPECIFIED PHYS Z794 MANAGER READING 06-06-2016 [facility] CURRENT USE HOSPITAL OF INSULIN E1065 TYPE 1 06-03-2016 [facility] ME[place]ITUS [place]CEM [place] R1030 LOWER 06-03-2016 [facility] PAIN UNSPECIFIED Z590 HOMELESSNES 06-03-2016 [facility] Z9049 ACQUIRED 06-03-2016 [facility] SPEC PARTS DIGESTIVE TRACT E0810 DM DUE TO 06-01-[address] [facility] UNDERLYING FAMILY COND MEDICINE P W/KETOACIDO S W/O COMA E860 DEHYDRATION 06-01-[address] [facility] FAMILY MEDICINE P E1010 TYPE 1 05-31-2016 [facility] MELLITUS [facility]OUNDATION W/KETOACIDO SIS W/O COMA K3580 UNSPECIFIED 05-31-2016 [facility] ACUTE [facility] APPENDICITI [facility]OUND[facility] S K5900 CONSTIPATIO 05-31-2016 [facility] UNSPECIFIED K651 PERITONEAL 05-31-2016 [facility] ABSCESS [facility] R1032 LEFT LOWER 05-31-2016 [facility] PAIN R188 OTHER 05-31-2016 [facility] ASCITES [facility] I23664 ENCOUNTER 05-31-2016 [facility] FLW SURG DIGESTIVE SYS Z9114 PATIENTS 05-31-2016 [facility] NONCOMPLIAN CE W/MEDICATIO N REGIMEN Z9889 OTHER 05-31-2016 [facility] POSTPROCEDU RAL STATES G8918 OTHER ACUTE 05-30-2016 [facility] POSTPROCEDU FOUNDATION RAL PAIN E1040 TYPE 1 05-28-2016 [facility] SERV MELLITUS [facility]OUND[facility] W/DIAB NEUROPATHY UNS I10 ESSENTIAL 05-28-2016 [facility] PRIMARY SERV HYPERTENSIO FOUNDATION N K37 UNSPECIFIED 05-28-2016 [place] [facility] APPENDICITI [facility] S K389 DISEASE OF 05-28-2016 [facility] UNSPECIFIED HOSPI R160 HEPATOMEGAL 05-28-2016 [place] [facility] [place] NOT SERV ELSEWHERE FOUNDATION CLASSIFIED R6882 DECREASED 05-28-2016 [facility] LIBIDO SERV [facility] E1169 TYPE 2 05-25-2016 [place] [facility] DIABETES SERV MELLITUS [facility]OUNDATION W/OTH SPEC COMPLICATIO N E872 ACIDOSIS 05-25-2016 [place] [facility] E869 VOLUME 01-25-2016 [facility] UNSPECIFIED HOSP R112 NAUSEA WITH 01-25-2016 [facility] VOMITING [facility] UNSPECIFIED HOSP K088 OTH SPEC 01-22-2016 [facility] DISORDERS EMERGENCY TEETH & PHYS PSC SUPPORTING STRUCTURES K029 DENTAL 01-20-2016 [facility] CARIES [facility]ERGENCY UNSPECIFIED PHYS PSC E861 HYPOVOLEMIA 11-09-2015 [facility] R030 ELEVATED 11-09-2015 [facility] BLOOD-PRESS EMERGENCY URE READING PHYS PSC WITHOUT DX HTN R1110 VOMITING 11-09-2015 [facility] UNSPECIFIED [facility] 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 PAIN [facility] & H V5867 LONG-TERM 06-17-2014 [facility] 3829 UNSPECIFIED 01-11-2014 [facility] DEXTER OTITIS MEDIA 7804 DIZZINESS 01-11-2014 [facility] DEXTER AND GIDDINESS 65824 DIAB W/O 02-16-2010 [facility] COMP TYPE I HOME MED [JUV] NOT EQUIP. [facility] STATED UNCNTRL 88529 DIAB 10-10-2009 [facility] W/KETOACIDO EMERGENCY S TYPE SERVICES II/UNS NOT ASSOCIATES STATED UNCNTRL 7840 HEADACHE 10-10-2009 [place] [facility] 65190 UNSPECIFIED 08-27-2009 [facility] V[facility]AL [facility] INFECTION IN CCE & UNS SITE 0091 COLITIS 07-15-2009 [facility] ENTERIT&GAS [facility]ATES TROENTERIT INF ORIGIN V0481 NEED 07-10-2009 [facility]/CO PROPHYLACTI HEALTH C CENTRAL VACCINATION BANK ACCT &INOCULATIO N FLU 4720 CHRONIC 06-25-2009 [facility] RHINITIS [facility] 76745 UNS 06-25-2009 [facility] GASTRITIS&G [facility] ASTRODUODIT IS W/O MENTION HEMORR 4779 ALLERGIC 06-19-2009 [facility] CAUSE UNSPECIFIED 44783 UNSPECIFIED 06-05-2009 [facility] ACUTE [facility] NONSUPPURAT JAS OTITIS MEDIA 490 BRONCHITIS 06-05-2009 [facility] NOT ASSOCIATES SPECIFIED ACUTE OR CHRONIC 4619 ACUTE 05-28-2009 [facility] SINUSITIS, ASSOCIATES UNSPECIFIED 54871 CONTUSION 02-03-2009 [facility] 9245 CONTUSION 02-03-2009 [facility] OF EMERGENCY UNSPECIFIED SERVICES PART OF ASSOCIATES LOWER LIMB E8490 PLACE OF 02-03-2009 [place] OCCURRENCE, MEDICAL HOME IMAGING [facility] E8852 FALL FROM 02-03-2009 [place] [facility] 7062 SEBACEOUS 01-23-2009 PATHOLOGY & CYST CYTOLOGY LAB 67249 DIAB W/O 01-22-2009 [facility], COMP TYPE JUDAH II/UNS NOT STATED UNCNTRL 2392 NEOPLASMS 01-16-2009 [facility] UNSPEC [facility]OC[facility]ATES NATURE BONE SOFT TISSUE&SKIN 86786 REGULAR 01-04-2009 [facility] ASTIGMATISM VISION 89425 CONTUSION 11-01-2008 [place] [facility] E8859 FALL FROM 11-01-2008 [place] OTHER MEDICAL SLIPPING IMAGING TRIPPING OR ASSOCIATES STUMBLING 97566 NAUSEA WITH 10-18-2008 [facility] CARE VOMITING [facility]OC[facility]ATES 5206 DISTURBANCE 08-20-2008 [facility] S IN TOOTH FOR ERUPTION ORAL&MAXILL OFACIAL SURGERY 26603 UNSPECIFIED 08-09-2008 [facility] INFECTIVE [facility] OTITIS EXTERNA 81733 DIAB W/O 04-30-2008 [facility] NURSE MENTION PRACTITIONE COMP TYPE I R GROUP [JUV TYPE] UNCNTRL 51097 DIAB 10-15-2007 [facility] W/HYPEROSMO SERV LARITY TYPE FOUNDATIO I [JUV TYPE] UNCNTRL 7906 OTHER 10-14-2007 [facility] ABNORMAL SERV BLOOD FOUNDATIO CHEMISTRY V1581 PERS HX 10-14-2007 [facility] NONCOMPLIAN SERV CE W/MED TX FOUNDATIO PRS HAZARDS HLTH Medications Na ND Rx Da Fi Fi Am Da Di Ph RX Ph St me C No te ll ll ou ys ag ar # ys at rm s nt no ma ic us Or Da si cy ia de te s n re d HY 16 12 01 45 15 00 DE Price KENDALL 71 -1 -0 .0 00 L- ti OX 40 07 MA ve YZ 08 20 20 31 RT IN 21 16 17 41 E 0 62 PH HC AR L MA 25 CY MG #2 62 TA 8 BL ET RE 00 12 01 10 30 00 DE Ac LI 16 -1 -0 .0 00 L- ti ON 91 08 MA ve 83 20 20 82 RT NO 30 16 17 91 VO 2 48 PH LI AR N MA R CY 10 0 #2 UN 62 IT 8 /M L PE 57 12 01 28 7 00 DE Ac NI 23 -1 -0 .0 00 [...] CY BL NT ET HI AN A WI 16 09 09 00 21 6 EA [...] 00 7. 7 EA 97 No Ac OK 06 -2 -[address] 70 t [...] ANTOINE No VACCIN 2009 ON CO [facility] 0.5 ML DOSAGE IM USE Procedures Procedure DOS Code Location Performer Comment RADIOLOGI 40500 NESTOR TRUE C 6 MEDICAL EXAMINATI SERV ON CHEST FOUNDATIO SINGLE N VIEW FRONTAL ECG 70788 [place] DAV[facility] ROUTINE 6 MEDICAL ECG SERV W/LEAST FOUNDATIO 12 LDS N I&R ONLY IM ADM 73506 [facility] PRQ ID 6 [place] [facility] WAD SUBQ/IM MEDICINE NJXS EA P VACCINE PPSV23 67540 [facility] VACCINE 2 6 [place] WAD YRS OR MEDICINE OLDER FOR P SUBQ/IM USE GLUC BLD 76387 [facility] GLUC MNTR 6 [place] [facility] [place] DEV MEDICINE CLEARED P FDA SPEC HOME USE ALBUMIN 64612 [facility] URINE 6 [place] [facility] DED MICROALBU MEDICINE MIN P SEMIQUANT ITATIVE IM ADM 10483 [facility] PRQ ID 6 [place] [facility] SUBQ/IM MEDICINE NJXS 1 P VACCINE IIV4 VACC 23736 [facility] [place] PRESRV 6 [place] FREE 0.5 MEDICINE ML FOR IM P USE INJECTION J2405 [address] ONDANSETR ON HCL PER 1 MG THER 21742 [facility] PROPH/DX [address] [place] [address] NJX IV PUSH SINGLE/1S T SBST/DRUG AMB A0427 J[facility] JESSAMINE SERVICE 6 CO CO ALS AMBULANCE AMBULANCE EMERGENCY TRANSPORT LEVEL [address] URNLS DIP [address] STICK/[place] [address] [facility] INFUSION [address] [place] [address] HYDRATION EACH ADDITIONA L HOUR GLUC BLD 36398 [facility] GLUC MNTR [address] [place] [address] DEV CLEARED FDA SPEC HOME USE COMPREHEN [address] METABOLIC PANEL THERAPEUT [address] HOSPITAL INJECTION IV PUSH EACH NEW DRUG GROUND A0425 JESSAMINE JESSAMINE MILEAGE 6 CO CO PER AMBULANCE AMBULANCE STATUTE MILE BLOOD 01698 [facility] COUNT [address] [place] [address] COMPLETE AUTO&AUTO DIFRNTL WBC BLOOD 20064 [facility] UNIVERS COUNT 6 Y Y COMPLETE HOSPITAL HOSPITAL AUTOMATED INFUSION J7050 [facility] UNIVERS NORMAL 6 Y Y SALINE [facility] SOLUTION 250 CC ECG 28755 [place] DAV[facility] ROUTINE 6 MEDICAL NAN ECG SERV W/LEAST FOUNDATIO 12 LDS N I&[place] [address] [facility] INFUSION 6 Y Y THERAPY/P HOSPITAL [facility] ROPHYLAXI S /DX 1ST TO 1 HR COMPREHEN 58329 [facility] SIVE 6 Y Y METABOLIC [facility] HOSPITAL PANEL URNLS DIP 41833 [facility] 6 Y Y STICK/TAB HOSPITAL HOSPITAL LET RGNT AUTO W/O MICROSCOP Y GASES 03632 [facility] BLOOD PH 6 Y Y DIRECT HOSPITAL HOSPITAL MEGH[place] [address] [facility] LACTATE 6 Y Y HOSPITAL HOSPITAL KETONE 33450 [facility] BODIES 6 Y Y SERUM HOSPITAL HOSPITAL QUANTITAT JAS INFUSION J7030 [facility] UNIVERS NORMAL 6 Y Y SALINE [facility] SOLUTION [address] [place] [address] [facility] INFUSION 6 Y Y THERAPY [facility] HOSPITAL PROPHYLAX IS/DX EA HOUR THERAPEUT 08186 [facility] IC 6 Y Y PROPHYLAC HOSPITAL HOSPITAL TIC/DX INJECTION SUBQ/[place] [address] [facility] LIPASE 6 Y Y HOSPITAL HOSPITAL INJECTION J1815 [facility] INSULIN 6 Y Y PER 5 HOSPITAL HOSPITAL UNITS ECG 35592 [facility] ROUTINE 6 Y Y ECG HOSPITAL HOSPITAL W/LEAST 12 LDS TRCG ONLY W/O I&R HOSPITAL 25784 [facility] DISCHARGE 6 [place] FAMILY K GIN DAY MEDICINE MANAGEMEN P T 30 MIN/< [place] [address] [place] MERHAR ABDOMEN & 6 MEDICAL GAR PELVIS SERV W/CONTRAS FOUNDATIO T N MATERIAL INITIAL 85898 [place] [facility] HOSPITAL 6 MEDICAL CARE/DAY SERV [address] [place] [address] [place] NATIVIDAD SANTANA ABDOMEN & 6 MEDICAL PELVIS SERV W/CONTRAS FOUNDATIO T N MATERIAL ECG 45734 [place] APURVA PETE ROUTINE 6 MEDICAL ECG SERV W/LEAST FOUNDATIO 12 LDS N I&R ONLY LEVEL III 17605 [facility] SURG 6 Y OF TASNEEM PATHOLOGY [place] [facility] GROSS&JAUN ROSCOPIC EXAM INITIAL 56180 [facility] INPATIENT 6 MEDICAL LIS CONSULT SERV NEW/ESTAB FOUNDATIO PT 40 N MIN LAPAROSCO 66453 [facility] DIEHLEY PIC 6 MEDICAL DONALD APPENDECT SERV QUINN FOUNDATIO N ANESTHESI 66355 [facility] KAY TANESHA A 6 LTH INTRAPERI ANESTHESI TONEAL A PSC LOWER ABD W/LAPS NOS AMB A0427 FERN FERN SERVICE 6 [place] FAY[place] ALS [facility]AN EMERGENCY COGOVT COGOVT TRANSPORT LEVEL 1 GROUND A0425 FERN FERN MILEAGE 6 [place] PER URBAN URBAN STATUTE [facility] [address] [facility], DISCHARGE 6 [place] FAMILY JR., DO DAY MEDICINE OSC MANAGEMEN P T 30 MIN/< GROUND A0425 FERN FERN MILEAGE 6 [place] FAY[place]TE PER URBAN URBAN STATUTE COGOVT COGOVT [facility] A0427 FERN FERN SERVICE 6 [place] FAYETTE ALS URBAN URBAN EMERGENCY COGOVT COGOVT TRANSPORT LEVEL 1 CUL BACT 09814 [facility] XCPT 6 [facility] URINE HOSP HOSP BLOOD/STO OL AEROBIC ISOL CULTURE 75708 [facility] TYPING 6 [facility] IMMUNOLOG HOSP HOSP IC OTH/THN IMMUNOFLU ORES COMPREHEN 65178 [facility] SIVE 6 [facility] METABOLIC HOSP HOSP PANEL URNLS DIP 12652 [facility] 6 [facility] STICK/TAB HOSP HOSP [place] RG[place] [address] [facility] INFUSION 6 [facility] HYDRATION HOSP HOSP EACH ADDITIONA L HOUR GLUCOSE 10039 [facility] BLOOD 6 [facility] [place] [address] [facility] AMYLASE 6 [facility] HOSP HOSP BLOOD 90297 [facility] COUNT 6 [facility] COMPLETE HOSP HOSP AUTO&AUTO DIFRNTL WBC THERAPEUT 88378 [facility] IC 6 [facility] INJECTION HOSP HOSP IV PUSH EACH NEW DRUG INJECTION C9113 [facility] 6 [facility] PANTOPRAZ HOSP HOSP OLE SODIUM PER VIAL INJECTION J1170 [facility] 6 [facility] HYDROMORP HOSP HOSP ROHAN UP TO 4 MG KETONE 37735 [facility] BODIES 6 [facility] SERUM HOSP HOSP QUALITATI VE INJECTION J2405 [facility] 6 [facility] ONDANSETR HOSP HOSP ON HCL [place] 1 [place] [address] [facility] LIPASE 6 [facility] HOSP HOSP THER 65510 [facility] PROPH/DX 6 [facility] NJX IV HOSP HOSP PUSH SINGLE/1S T SBST/DRUG INJECTION J1170 [facility] 6 [facility] HYDROMORP HOSP HOSP ROHAN UP TO 4 MG DRUG TEST G0478 [facility] 6 [facility] PRESUMP;R HOSP HOSP EAD BY INSTRUM-A ST DC OPT OBV BLOOD 95444 [facility] COUNT 6 [facility] HEMATOCRI HOSP HOSP T THERAPEUT 90611 [facility] IC 6 [facility] INJECTION [place]OS[place] [address] [facility] INFUSION 6 [facility] THERAPY/P HOSP HOSP ROPHYLAXI S /DX 1ST TO 1 HR BLOOD 14406 [facility] COUNT 6 [facility] COMPLETE HOSP HOSP AUTO&[place] [address] [facility] INFUSION 6 [facility] HYDRATION HOSP HOSP EACH ADDITIONA L HOUR COMPREHEN 86350 [facility] SIVE 6 [facility] METABOLIC HOSP HOSP PANEL BASIC 06750 [facility] METABOLIC 6 [facility] PANEL HOSP HOSP CALCIUM IONIZED THER 44168 [facility] PROPH/DX 6 [facility] NJX EA HOSP HOSP SEQL IV PUSH SBST/DRUG FAC THER 23190 [facility] PROPH/DX 6 [facility] NJX EA HOSP HOSP SEQL IV PUSH SBST/DRUG FAC COMPREHEN 20014 [facility] SIVE 6 [facility] METABOLIC HOSP HOSP PANEL URNLS DIP 24711 [facility] 6 [facility] STICK/TAB HOSP HOSP [place] RG[place] [address] [facility] INFUSION 6 [facility] HYDRATION HOSP HOSP EACH ADDITIONA L HOUR GASES 01130 [facility] BLOOD PH 6 [facility] DIRECT HOSP HOSP MEGHAN XCPT PULSE OXIMITRY GLUCOSE 72757 [facility] BLOOD 6 [facility] REAGENT HOSP HOSP STRIP BLOOD 71643 [facility] COUNT 6 [facility] COMPLETE HOSP HOSP AUTO&AUTO DIFRNTL WBC THERAPEUT 09060 [facility] IC 6 [facility] INJECTION HOSP HOSP IV PUSH EACH NEW DRUG ARTERIAL 36790 [facility] PUNCTURE 6 [facility] WITHDRAWA HOSP HOSP L BLOOD DX INJECTION J0500 [facility] 6 [facility] DICYCLOMI HOSP HOSP NE HCL UP TO 20 MG THER 52682 [facility] PROPH/DX 6 [facility] NJX IV HOSP HOSP PUSH SINGLE/1S T SBST/[place] [address] [facility] LIPASE 6 [facility] HOSP HOSP THERAPEUT 24170 [facility] IC 6 [facility] PROPHYLAC HOSP HOSP TIC/DX INJECTION SUBQ/IM INJECTION J2405 [facility] 6 [facility] ONDANSETR HOSP HOSP ON HCL PER 1 MG KETONE 95493 [facility] BODIES 6 [facility] SERUM HOSP HOSP QUALITATI VE OPHTH 79365 [facility] JORDYN ALL MEDICAL 6 XM&EVAL COMPRE NEW PT 1/> VST DETERMINA 93324 [facility] JORDYN ALL TION 6 REFRACTIV E STATE ECG 24894 [facility] RUSCHMAN ROUTINE 5 EMERGENCY ALYCE ECG PHYS PSC W/LEAST 12 LDS I&R ONLY CRITICAL 96201 [facility] RUSCH[facility] CARE 5 EMERGENCY ALYCE ILL/INJUR PHYS PSC ED PATIENT INIT 30-74 MIN CV STRS 73036 [facility] SEMDER TST 4 [facility] XERS&/OR MEDICAL RX CONT GROUP ECG W/O I&R CV STRS 73819 [facility] SEMDER TST 4 [facility] XERS&/OR MEDICAL RX CONT GROUP ECG I&R ONLY SBSQ [address] 25 & H MINUTES ECG 12200 [facility] SEMDER ROUTINE 4 [facility] ECG MEDICAL W/LEAST GROUP 12 LDS I&R ONLY INITIAL [address] 70 & H MINUTES BLD GLU A4253 G[facility] GUSTAVO TEST/REAG 0 HOME MED HOME MED T STRIPS EQUIP. EQUIP. HOME D [facility] GLU WED-50 BLD GLU A4253 GUSTAVO GUSTAVO TEST/REAG 0 HOME MED HOME MED T STRIPS EQUIP. EQUIP. HOME [facility] [employer] GLU MON-50 HEMOGLOBI 55439 FAMILY MULBERRY, N 0 CARE JACKY T GLYCOSYLA ASSOCIATE JADYN A1C S GLUCOSE 59882 FAMILY MULBERRY, POST 0 CARE JACKY T GLUCOSE ASSOCIATE DOSE S BLD GLU A4253 GUST[facility]O GUSTAVO TEST/REAG 0 HOME MED HOME MED T STRIPS EQUIP. EQUIP. HOME [facility] GLU MON-50 3D 31121 DELMIS GUPTA 0 MEDICAL FAUSTO W/INTERP IMAGING & [place] [address] [place] BEATRIZ, HEAD/BRAI 0 MEDICAL FAUSTO N W/O IMAGING CONTRAST ASSOCIATE MATERIAL S RADIOLOGI 92055 [place] BEATRIZ, C 0 MEDICAL FAUSTO EXAMINATI IMAGING ON CHEST ASSOCIATE SINGLE S VIEW FRONTAL BLOOD 61402 FAMILY KINA, COUNT 9 CARE R PEPE COMPLETE ASSOCIATE AUTO&AUTO S DIFRNTL WBC IIV3 06859 [facility]/CO BILL VACCINE 9 [facility]ALTH [facility] V[facility] 0.5 BANK ACCT ML DOSAGE IM USE BLD GLU A4253 GUSTAVO CHEN TEST/REAG 9 HOME MED HOME MED T STRIPS EQUIP. EQUIP. HOME [facility]LD [place] GLU WED- RADIOLOGI 44343 BILL KHAN C 9 [facility] EXAMINATI INC INC ON FEMUR 2 VIEWS RADEX HIP 42311 [place] GURJIT 9 MEDICAL NGUYEN P UNILATERA IMAGING L ASSOCIATE COMPLETE S MINIMUM 2 VIEWS RADIOLOGI 28753 [place] GURJIT Tayla 9 MEDICAL NGUYEN P EXAMINATI IMAGING ON PELVIS ASSOCIATE 1/2 S VIEWS LEVEL III 80720 PATHOLOGY PATHOLOGY SURG 9 & & PATHOLOGY CYTOLOGY CYTOLOGY LAB LAB GROSS&JAUN ROSCOPIC EXAM EXC B9 90887 SUE[place] SCHULSTAD LESION 9 , JUDAH , JUDAH MRGN XCP SK TG T/A/L 1.1-2.0 CM OPHTH 59420 CRISTINA DWYER MEDICAL 9 [place]ISION MAXIMILIANO M XM&EVAL COMPRHNSV ESTAB PT 1/> FITTING 92457 CRISTINA DWYER, SPECTACLE 9 VISION MAXIMILIANO M S XCPT APHAKIA MONOFOCAL FRAMES V2020 CRISTINA DWYER PURCHASES 9 VISION MAXIMILIANO M 1 VISN V2103 CRISTINA DWYER PLANO 9 VISION MAXIMILIANO M TO+/-4.00 D SPHER 0.12-2.00 D CYL EA RADEX 89714 [place] BEATRIZ, WRIST 9 MEDICAL FAUSTO COMPLETE IMAGING MINIMUM 3 ASSOCIATE VIEWS S CULTURE 95361 BILL KHAN BACTERIAL 9 [facility] INC INC QUANTTATI VE COLONY COUNT URINE OBSERVATI 38976 FAMILY LOLYBERRY, ON CARE 9 CARE JACKY T DISCHARGE ASSOCIATE S [facility] G0378 BILL KHAN OBSERVATI 9 [facility] ON INC INC SERVICE PER HOUR URNLS DIP 14458 BILL KHAN 9 [facility] STICK/TAB INC INC LET REAGENT AUTO MICROSCOP Y GLUC BLD 70139 BILL KHAN GLUC MNTR 9 [facility] DEV INC INC CLEARED FDA SPEC HOME USE HEMOGLOBI 16300 BILL KHAN N 9 [facility] GLYCOSYLA INC INC JADYN [address] G0378 BILL KHAN OBSERVATI 9 [facility] ON INC INC SERVICE PER HOUR COMPREHEN 72753 BILL KHAN SIVE 9 [facility] METABOLIC INC INC PANEL INITIAL 68857 ADELIA, OBSERVATI 9 CARE JACKY T ON ASSOCIATE CARE/DAY S 50 MINUTES TOBACCO 42221 BILL KHAN USE 9 [facility] CESSATION INC INC INTERMEDI ATE 3-10 MINUTES BLOOD 45250 BILL KHAN COUNT 9 [facility] COMPLETE INC INC AUTO&AUTO DIFRNTL WBC BLD GLU A4253 GUSTAVO CHEN TEST/REAG 9 HOME MED HOME MED T STRIPS EQUIP. EQUIP. HOME [facility] [place] GLU MON-50 DEEP D9220 [facility] ERYN, SEDATION/ 8 FOR PAULO Palacios GENERAL ORAL&MAXI ANESTHESI LLOFACIAL A-1ST 30 SURGERY MINUTES ORTHOPANT 63736 [facility] BONDRA, OGRAM 8 FOR SIMA Mendiola ORAL&MAXI LLOFACIAL SURGERY BLD GLU A4253 GUSTAVO CHEN TEST/REAG 8 HOME MED HOME MED T STRIPS EQUIP. EQUIP. [facility] [employer] GLU MON-50 COMPREHEN 30598 [facility] UNIVERS SIVE 8 Y Y METABOLIC [facility] PANEL CREATININ 78787 [facility] E OTHER 8 Y [facility] COLLECTIO 69439 [facility] UNIVERS N VENOUS 8 Y Y BLOOD [facility] [place] [address] [facility] TH[facility]ROID 8 [facility] TSH LIPID 59778 [facility] PANEL 8 Y Y [facility] [place] [address] [facility] GAMMAGLOB 8 Y Y [facility] IGD IGG IGM EACH HEMOGLOBI 34076 KMSF ALIN N 8 NURSE SADIE SALDAÑAA PRACTITIO JADYN A1C NER GROUP ALBUMIN 98179 [facility] URINE 8 Y [facility] QUANTIAT[facility] VE IMMUNOASS 94705 [facility] AY 8 Y Y ANALYTE [facility] QUAL/SEMI QUAL MULTIPLE STEP HEMOGLOBI [address] [place] [address] MEDICAL III, GLYCOSYLA SERV NORBERTO J JADYN A1C FOUNDATIO BLD GLU A4253 GUSTAVO LANDARELL TEST/REAG 8 HOME MED HOME MED T STRIPS EQUIP. EQUIP. HOME BLD [facility] GLU MON-50 BLOOD 82239 [facility] COUNT 8 [facility] COMPLETE INC INC AUTO&AUTO DIFRNTL WBC HEMOGLOBI 92457 [facility] N 8 [facility] GLYCOSYLA INC INC JADYN A1C BASIC 62879 [facility] METABOLIC 8 [facility] PANEL INC INC CALCIUM TOTAL BLD GLU A4253 GUSTAVO GUSTAVO TEST/REAG 8 HOME MED HOME MED T STRIPS EQUIP. EQUIP. HOME [facility] GLU MON-50 BLD GLU A4253 GUSTAVO GUSTAVO TEST/REAG 8 HOME MED HOME MED T STRIPS EQUIP. EQUIP. HOME BLD [facility] GLU MON-50 [place] [address] [place] [address] MEDICAL III, GLYCOSYLA SERV NORBERTO J JADYN A1C FOUNDATIO HOME E0607 GUSTAVO LANDARELL BLOOD 8 HOME MED HOME MED GLUCOSE EQUIP. EQUIP. MONITOR [facility] INITIAL [address] [place] [address] MEDICAL III, CARE/DAY SERV NORBERTO Mendiola 70 FOUNDATIO MINUTES KETONE 89520 [facility] BODIES 8 Y Y SERUM [facility] QUALITATI VE BASIC 13622 [facility] METABOLIC 8 Y Y [facility] CALCIUM TOTAL INJECTION [id number] [facility] INSULIN 8 Y Y PER 5 HOSPITAL HOSPITAL UNITS GASES 55442 [facility] BLOOD PH 8 Y Y DIRECT [facility]OSPITAL HOSPITAL MEGHAN XCPT PULSE OXIMITRY COLLECTIO 08040 [facility] N VENOUS 8 Y Y BLOOD [facility] VENIPUNCT URE HEMOGLOBI 45922 [facility] N 8 Y Y GLYCOSYLA [facility] JADYN A1C GLUC BLD 92432 [facility] GLUC MNTR 8 Y Y DEV [facility] [place] [address] [facility] INFUSION 8 Y Y HYDRATION [facility] INITIAL 31 MIN-1 HR INITIAL 42453 [facility] OBSERVATI 8 Y Y ON HOSPITAL HOSPITAL CARE/DAY 30 MINUTES HEMOGLOBI [address]396 [place] [facility] N 8 MEDICAL III, GLYCOSYLA SERV NORBERTO J JADYN A1C FOUNDATIO BLD GLU A4253 GUSTAVO CHEN TEST/REAG 8 HOME MED HOME MED T STRIPS EQUIP. EQUIP. [facility] GLU MON-50 Encounters Encounter Start End Date Code Location Performer Type Date OFFICE 03541 [facility] 6 6 [place] FAMILY WAD T VISIT MEDICINE 25 P MINUTES [facility] [address] EMERGENCY [address] [facility] DEPT 6 6 RASHID VISIT EMERGENCY HIGH PHYS SEVERITY& THREAT FUN EMERGENCY [address] T VISIT HIGH/URGE NT SEVERITY OFFICE 86502 [facility] 6 6 [place] HENNY NEE T VISIT MEDICINE 25 P MINUTES EMERGENCY 43785 [facility] DEPT 6 6 Y VISIT HOSPITAL HIGH SEVERITY& THREAT FUNCJ EMERGENCY 32078 [facility] 6 6 [place] [facility] PHYSICIAN T VISIT S ASSIST HIGH/URGE NT [facility] [address] UNIVERSIT - 6 6 Y INPATIENT HOSPITAL EMERGENCY 94853 [facility] VIOLA 6 6 MEDICAL MELISSA DEPARTMEN SERV T VISIT FOUNDATIO HIGH/URGE N NT SEVERITY EMERGENCY 03375 [facility] ANSARIS ALL 6 6 MEDICAL DEPARTMEN SERV T VISIT FOUNDATIO MODERATE N SEVERITY EMERGENCY 29503 [facility] MARTA DEPT 6 6 MEDICAL SET VISIT SERV HIGH FOUNDATIO SEVERITY& N THREAT [facility] - 6 6 [facility] EMERGENCY 71435 [facility] 6 6 [facility] DEPART[facility] HOSP T VISIT HIGH/URGE NT SEVERITY EMERGENCY 32202 [facility] 6 6 EMERGENCY TOD DEPARTMEN PHYS PSC T VISIT MODERATE SEVERITY EMERGENCY 96268 [facility] 6 6 EMERGENCY ALYCE VISIT PHYS PSC HIGH SEVERITY& THREAT FUN EMERGENCY 25584 [facility] 6 6 [facility] T VISIT MODERATE SEVERITY [facility]OS[facility] - 6 6 [facility] EMERGENCY 47025 [facility] 6 6 [facility] DEPART[facility]OSP T VISIT HIGH/URGE NT SEVERITY [facility]OSPITAL [facility] - 6 6 [facility] HOSPITAL CRISTOBAL'S - 4 4 [facility] EMERGENCY 65964 PALMER CHAKRABORTY 4 4 DEXTER DEXTER DEPARTMEN T VISIT MODERATE SEVERITY OFFICE 69227 FAMILY ADELIA, OUTPATIEN 0 0 CARE JACKY T T VISIT ASSOCIATE 15 S MINUTES EMERGENCY 83982 SHANNON PALACIOS, DEPT 0 0 EMERGENCY GRISELDA VISIT SERVICES O HIGH SEVERITY& ASSOCIATE THREAT S [facility] BILL - 0 0 MEM H[facility] OUTPATIEN [facility] T OFFICE 92045 FAMILY KINA, OUTPATIEN 0 0 CARE R PEPE T VISIT ASSOCIATE 15 S MINUTES OFFICE 27463 FAMILY KINA, OUTPATIEN 9 9 CARE R PEPE T VISIT ASSOCIATE 15 S MINUTES OFFICE 75552 FAMILY KINA, OUTPATIEN 9 9 CARE R PEPE T VISIT ASSOCIATE 15 S MINUTES OFFICE 25077 FAMILY KINA, OUTPATIEN 9 9 CARE R PEPE T VISIT ASSOCIATE 15 S MINUTES OFFICE 04944 FAMILY MULBERRY, OUTPATIEN 9 9 CARE JACKY T T VISIT ASSOCIATE 15 S MINUTES OFFICE 47205 FAMILY KIRBY J OUTPATIEN 9 9 CARE G T VISIT ASSOCIATE 15 S MINUTES OFFICE 72731 FAMILY KINA, OUTPATIEN 9 9 CARE R PEPE T VISIT ASSOCIATE 15 S MINUTES OFFICE 74770 FAMILY MULBERRY, OUTPATIEN 9 9 CARE JACKY T T VISIT ASSOCIATE 15 S MINUTES HOSPITAL BILL - 9 9 [facility] OUTPATIEN INC T EMERGENCY 74591 BILL 9 9 [facility] DEPARTMEN INC T VISIT LOW/MODER SEVERITY EMERGENCY 44238 SHANNON PRINCE, 9 9 EMERGENCY [facility] SERVICES T VISIT HIGH/URGE ASSOCIATE NT S SEVERITY OFFICE 99516 [facility] 9 9 , JUDAHJUDAH Anaya ION NEW/ESTAB PATIENT 40 MIN OFFICE 75551 FAMILY MULBERRY, OUTPATIEN 9 9 CARE JACKY T T VISIT ASSOCIATE 15 S MINUTES HOSPITAL BILL - 9 9 [facility] OUTPATIEN INC T HOSPITAL BILL - 9 9 [facility] OUTPATIEN INC T OFFICE 32743 FAMILY LOLYBERRY, OUTPATIEN 8 8 CARE JACKY T T VISIT ASSOCIATE 15 S MINUTES OFFICE 55860 [place] [facility] 8 8 FOR SIMA Mendiola T NEW 10 ORAL&MAXI MINUTES LLOFACIAL SURGERY OFFICE 96221 [facility] 8 8 CARE JACKY T T VISIT ASSOCIATE 15 S MINUTES OFFICE 87350 [facility] 8 8 NURSE SADIE Britt T VISIT PRACTITIO 40 NER GROUP MINUTES HOSPITAL UNIVERSIT - 8 8 [facility] T OFFICE 81964 [facility]ERR[facility] 8 8 MEDICAL III, T VISIT SERV NORBERTO J 15 FOUNDATIO MINUTES OFFICE 88491 KINA, [facility] 8 8 CARE R PEPE T VISIT ASSOCIATE 15 S MINUTES OFFICE 02806 KIRBY Maury [facility] 8 8 CARE G T VISIT ASSOCIATE 15 S MINUTES HOSPITAL BILL - 8 8 [facility] 02131 FAMILY DELVALLE [facility] 8 8 CARE JACKY Alegre T VISIT ASSOCIATE 15 S MINUTES OFFICE 46241 [facility] 8 8 MEDICAL III, T VISIT SERV NORBERTO J 25 FOUNDATIO MINUTES EMERGENCY 29460 NEST[facility] FALCON, DEPT 8 8 MEDICAL NIALL E VISIT SERV HIGH FOUNDATIO SEVERITY& THREAT [facility] UNIVERSIT - 8 8 [facility] 61978 UNIVERSIT 8 8 Y [facility] T VISIT HIGH/URGE NT SEVERITY OFFICE 48922 [facility] 8 8 MEDICAL III, T VISIT SERV NORBERTO J 25 FOUNDATIO MINUTES
--- OUTSIDE RECORDS SUMMARY | 2017-01-24 21:59 | External Medical Summary Rpt ---
Author Author ALICE Brenardo, [employer] Organization [employer] Address Unknown Phone Unavailable
--- OUTSIDE RECORDS SUMMARY | 2017-01-24 21:59 | External Medical Summary Rpt ---
Author Author ALICE Bernardo, [employer] Organization [employer] Address Unknown Phone Unavailable
--- OUTSIDE RECORDS SUMMARY | 2017-01-24 21:59 | External Medical Summary Rpt ---
Demographics Preferred Language Icelandic Marital Status Unknown Zoroastrianism Affiliation Unknown Race Unknown Ethnic Group Unknown Author Author , Organization [employer] Address Unknown Phone Unavailable Purpose Continuity of Care Document - through 2016 Immunization No patient found.
--- OUTSIDE RECORDS SUMMARY | 2017-01-24 21:59 | External Medical Summary Rpt ---
Demographics Preferred Language Citizen Of [place] Marital Status Unknown Taoist Affiliation Unknown Race Unknown Ethnic Group Unknown Author Author , Organization [employer] Address Unknown Phone Unavailable Purpose Continuity of Care Document - through 2016 Immunization No patient found.
== END 2017-01-23 04:17 | disposition home or self-care (01) ==
LOC: ER 01:31
PROVIDERS: Emergency Medicine
DX: E10.8 Type 1 diabetes mellitus with unspecified complications (principal); Z79.4 Long term (current) use of insulin
CPT/HCPCS: G6040